=== PATIENT | male | born 1955 | race Caucasian/White ===

== ENCOUNTER 2018-01-01 05:04 | Emergency (ER) | payer MEDICARE, BC ==
[~2018-01-01] VITALS: Ht 182.9 cm; Wt 115.7 kg
[~2018-01-01 05:04] MED LIST: ALBU3IS INH; ALBU8HFA2 INH; AMLO10 PO; AMOCLA875 PO; AMOX500 PO; ASCO500 PO; ASPI81CH PO; ASPI81EC PO; Acetaminophen-1 EAC1 PO; BACL10 PO; BUME1 PO; BUME2 PO; Bactrim Ds Tab1 EACH PO; CARV3.125 PO; CARV6.25 PO; CLON.1 PO; CLON.2 PO; CYCL10; CYCL10 PO; Cleocin HCl150 MG PO; DIAZ10 PO; DOCU100 PO; DULO30 PO; DULO60; DULO60 PO; DULOXETINE HCL30 MG PO; DULOXETINE HCL60 MG PO; FENT50TP TOP; FENT75TP TOP; FERR325 PO; FURO40 PO; GABA600 PO; Gabapentin600 MG PO; HYDACE10B PO; HYDACE25S PR; HYDACE5; HYDACE5 PO; HYDMOR2 PO; HYDMOR4 PO; Hydrocodone-Ap1 EA23 PO; KETO10 PO; LIDO5TP; LORA1 PO; LOSARTAN POTASS25 MG PO; METH10; METH10 PO; METO50 PO; Metoprolol Tar100 MG PO; Monodox100 MG PO; NAPR500 PO; Naprosyn500 MG PO; Norco 5-325 Ta1 EACH PO; OMEP20ER PO; OXYACE5T PO; PENVK250 PO; POTCHL10ER PO; POTCHL20ER PO; PRED10 PO; PROM25 PO; Percocet 5-3251 EACH PO; Phenergan25 M1 PO; Prednisone20 MG PO; Prilosec Otc20 MG PO; RXCYCL10 PO; RXHYDMOR2 PO; RXOXYACE PO; Senna Laxative8.6 MG PO; Silvadene20 GM TOP; Simvastatin20 MG PO; TELM40; TIZA4; VENL37.5; Veetids 500500 MG PO; Ventolin Soln3 ML INH; WARF10 PO; [UNRECOGNIZED DRUG - REMARK]; [UNRECOGNIZED DRUG - REMARK]
[2018-01-01] MEDS ORDERED: Hydrocodone-Ap1 EA23 PO (05:20)
[2018-01-01] MEDS ORDERED: TORSE20 PO (05:21)
[2018-01-01] MEDS ORDERED: Cleocin HCl300 MG PO (05:22)
== END 2018-01-01 05:24 | disposition home or self-care (01) ==
LOC: ER 05:04
DX: K04.7 Periapical abscess without sinus (principal); K02.9 Dental caries, unspecified; I10 Essential (primary) hypertension; J44.9 Chronic obstructive pulmonary disease, unspecified; F17.210 Nicotine dependence, cigarettes, uncomplicated; Z88.8 Allergy status to other drugs, medicaments and biological substances; Z79.899 Other long term (current) drug therapy; Z79.01 Long term (current) use of anticoagulants; Z79.891 Long term (current) use of opiate analgesic; Z79.2 Long term (current) use of antibiotics; Z79.82 Long term (current) use of aspirin
CPT/HCPCS: 99282

== ENCOUNTER 2018-11-02 01:22 | Emergency (ER) | payer MEDICARE ==
[~2018-11-02] VITALS: Ht 182.9 cm; Wt 127.0 kg
[~2018-11-02 01:22] MED LIST changes: +Augmentin 500-1 EACH PO; +Cleocin HCl300 MG PO; +SULI150 PO; +TORSE20 PO
[2018-11-02] MEDS ORDERED: Augmentin 875-1 EACH PO (02:13)
== END 2018-11-02 02:33 | disposition home or self-care (01) ==
LOC: ER 01:22
DX: K04.7 Periapical abscess without sinus (principal); J44.9 Chronic obstructive pulmonary disease, unspecified; I10 Essential (primary) hypertension; Z95.2 Presence of prosthetic heart valve; Z88.8 Allergy status to other drugs, medicaments and biological substances; Z79.01 Long term (current) use of anticoagulants; Z79.899 Other long term (current) drug therapy; F17.210 Nicotine dependence, cigarettes, uncomplicated
CPT/HCPCS: 99282; A9270

== ENCOUNTER 2019-02-03 18:29 | Inpatient (IN) | payer MEDICARE, BC ==
[~2019-02-03] VITALS: Ht 182.9 cm; Wt 129.0 kg
[~2019-02-03 18:29] MED LIST changes: +Augmentin 875-1 EACH PO
[2019-02-03 19:36] LABS: BASOPHILS ABSOLUTE AUTO 0.05 K/mm3 (0.00-0.23); BASOPHILS PERCENT AUTO 1 % (0-2); EOSINOPHILS ABSOLUTE AUTO 0.32 K/mm3 (0.00-0.68); EOSINOPHILS PERCENT AUTO 3 % (0-6); Hematocrit 52.9 % (37.0-53.0); Hemoglobin 14.4 g/dL (13.5-17.5); IMMATURE GRAN ABSOLUTE AUTO 0.03 K/mm3 (0.00-0.10); IMMATURE GRAN PERCENT AUTO 0 % (0-1); LYMPHOCYTES ABSOLUTE AUTO 1.45 K/mm3 (0.84-5.20); LYMPHOCYTES PERCENT AUTO 15 % (21-46); MONOCYTES ABSOLUTE AUTO 1.07 K/mm3 (0.16-1.47); MONOCYTES PERCENT AUTO 11 % (4-13); Mean Corpuscular HGB 24.2 pg (26.0-34.0); Mean Corpuscular HGB Conc 27.2 g/dL (31.5-36.5); Mean Platelet Volume 9.9 fL (9.1-12.4); NEUTROPHILS ABSOLUTE AUTO 7.06 K/mm3 (1.96-9.15); NEUTROPHILS PERCENT AUTO 71 % (41-73); Platelet Count 289 K/mm3 (150-400); RDW Coefficient Variation 23.5 % (11.7-14.2); RDW Standard Deviation 72.2 fL (35.1-46.3); Red Blood Cell Count 5.96 M/mm3 (4.30-5.90); White Blood Cell Count 9.98 K/mm3 (4.00-11.30)
[2019-02-03 19:38] LABS: Mean Corpuscular Volume 89 fL (80-100)
[2019-02-03 19:50] LABS: International Normalized Ratio 2.49; Prothrombin Time Results 24.3 Sec (9.7-11.5)
[2019-02-03 19:59] LABS: Alanine Aminotransfer (ALT/SGP 21 U/L (12-78); Albumin, Blood 3.2 g/dL (3.4-5.0); Albumin/Globulin Ratio 0.7 (0.8-1.8); Alk Phos 50 U/L (50-136); Anion Gap -1 mmol/L (6-16); Aspartate Aminotrans (AST/SGOT 31 U/L (12-37); Bilirubin, Total 0.5 mg/dL (0.1-1.0); Blood Urea Nitrogen 31 mg/dL (8-24); Bun/Creatinine Ratio 23.3 (12.0-20.0); CO2, Blood 41 mmol/L (21-32); Calcium, Blood 8.8 mg/dL (8.5-10.1); Chloride, Blood 92 mmol/L (98-108); Creatinine, Blood 1.33 mg/dL (0.60-1.20); Globulin, Blood 4.3 g/dL (2.2-4.0); Glomerular Filtration Rate 58 (60-); Glucose, Blood 173 mg/dL (70-99); Potassium, Blood 4.9 mmol/L (3.5-5.5); Sodium, Blood 132 mmol/L (136-145); Total Protein, Blood 7.5 g/dL (6.4-8.2); Troponin I <0.015 ng/mL (0.000-0.040)
[2019-02-03] MEDS ORDERED: ALBU3IS INH (20:47)
[2019-02-03] MEDS ORDERED: Prednisone50 MG PO (20:47)
[2019-02-03] MEDS ORDERED: ALBU90OI INH (20:47)
[2019-02-03] MEDS ORDERED: CLON.2 PO (21:42)
[2019-02-03] MEDS ORDERED: Catapres0.2 MG PO (21:43)
[2019-02-03] MEDS ORDERED: Aspir 8181 MG PO (21:44)
[2019-02-03 21:48] LABS: PCO2 Arterial 77.8 mmHg (35-45); PO2 Arterial 52.4 mmHg (80-100); pH Blood Arterial 7.35 (7.35-7.45)
[2019-02-03] MEDS ORDERED: WARF5 PO (21:54)
[2019-02-03 21:55] LABS: Uric Acid, Blood 8.2 mg/dL (3.5-7.2)
[2019-02-04] MEDS ORDERED: MAGNESIUM OXID500 MG PO (00:50)
[2019-02-04] MEDS ORDERED: B Complex-Foli1 EACH PO (00:52)
--- NOTE | 2019-02-04 02:48 | NUR ---
PATIENT UNABLE TO VOID, BLADDER SCAN SHOWING OVER 1000 CC OF URINE IN BLADDER.
--- NOTE | 2019-02-04 03:21 | NUR ---
LOW 16FR CODE PLACED WITH NO URINE AT THIS TIME.
[2019-02-04 03:24] LABS: BASOPHILS ABSOLUTE AUTO 0.02 K/mm3 (0.00-0.23); BASOPHILS PERCENT AUTO 0 % (0-2); EOSINOPHILS ABSOLUTE AUTO 0.04 K/mm3 (0.00-0.68); EOSINOPHILS PERCENT AUTO 0 % (0-6); Hematocrit 53.3 % (37.0-53.0); Hemoglobin 14.5 g/dL (13.5-17.5); IMMATURE GRAN ABSOLUTE AUTO 0.03 K/mm3 (0.00-0.10); IMMATURE GRAN PERCENT AUTO 0 % (0-1); LYMPHOCYTES PERCENT AUTO 9 % (21-46); MONOCYTES ABSOLUTE AUTO 0.14 K/mm3 (0.16-1.47); MONOCYTES PERCENT AUTO 2 % (4-13); Mean Corpuscular HGB 23.7 pg (26.0-34.0); Mean Corpuscular HGB Conc 27.2 g/dL (31.5-36.5); Mean Corpuscular Volume 87 fL (80-100); Mean Platelet Volume 10.1 fL (9.1-12.4); NEUTROPHILS ABSOLUTE AUTO 8.37 K/mm3 (1.96-9.15); NEUTROPHILS PERCENT AUTO 89 % (41-73); Platelet Count 253 K/mm3 (150-400); RDW Coefficient Variation 22.9 % (11.7-14.2); RDW Standard Deviation 69.8 fL (35.1-46.3); Red Blood Cell Count 6.13 M/mm3 (4.30-5.90)
[2019-02-04 03:37] LABS: International Normalized Ratio 2.4; Prothrombin Time Results 23.5 Sec (9.7-11.5)
--- NOTE | 2019-02-04 03:40 | NUR ---
PATIENT RELAXING AFTER ATIVAN GIVEN LOW CATH DRAINING YELLOW URINE.
[2019-02-04 03:43] LABS: Alanine Aminotransfer (ALT/SGP 20 U/L (12-78); Albumin, Blood 3.1 g/dL (3.4-5.0); Albumin/Globulin Ratio 0.7 (0.8-1.8); Alk Phos 47 U/L (50-136); Anion Gap 1 mmol/L (6-16); Aspartate Aminotrans (AST/SGOT 27 U/L (12-37); Bilirubin, Total 0.5 mg/dL (0.1-1.0); Blood Urea Nitrogen 26 mg/dL (8-24); Bun/Creatinine Ratio 26.6 (12.0-20.0); CO2, Blood 39 mmol/L (21-32); Calcium, Blood 8.5 mg/dL (8.5-10.1); Chloride, Blood 95 mmol/L (98-108); Creatinine, Blood 0.98 mg/dL (0.60-1.20); Globulin, Blood 4.6 g/dL (2.2-4.0); Glomerular Filtration Rate >60 (60-); Glucose, Blood 187 mg/dL (70-99); Potassium, Blood 5.2 mmol/L (3.5-5.5); Sodium, Blood 135 mmol/L (136-145); Total Protein, Blood 7.7 g/dL (6.4-8.2)
[2019-02-04 03:49] LABS: Source, Urine Clean Catch
[2019-02-04 04:05] LABS: Bilirubin, Urine Neg (Neg); Blood, Urine Neg (Neg); Glucose Qualitative, Urine Neg (Neg); Ketones, Urine Neg (Neg); Leukocyte Esterase, Urine Neg (Neg); Nitrite, Urine Neg (Neg); Protein, Urine Neg (Neg); Specific Gravity, Urine 1.015 (1.003-1.022); Urobilinogen, Urine NORM (Normal)
[2019-02-04 04:19] LABS: Appearance, Urine Clear (Clear); Color, Urine Yellow (P-Yellow); U Amphetamine Screen DETECTED; U Barbituate Screen Not Detected; U Benzodiazapine Screen Not Detected; U Buprenorphine Screen DETECTED; U Cannabinoids Screen Not Detected; U Cocaine Screen Not Detected; U Methadone Screen Not Detected; U Methamphetamine Screen Not Detected; U Opiates Screen Not Detected; U Oxycodone Screen Not Detected; U Phencyclidine Screen Not Detected; U Propoxyphene Screen Not Detected
--- NOTE | 2019-02-04 06:29 | NUR ---
SUMMARY PATIENT AWAKENS EASILY TO VERBAL STIMULI. SLEEPING WITH BIPAP IN PLACE SET AT 12/7 FIO2 40% PATIENT HAD APROX 1/2HR BREAK WITH 4L/NC IN PLACE. OXYGEN SAT DROPPING TO 87% WHEN PATIENT FALLING BACK TO SLEEP, BIPAP REPLACED. LOW CATH PLACED DUE TO URINE RETENTION, DRAINING CLEAR YELLOW URINE.
--- NOTE | 2019-02-04 07:34 | NUR ---
ASSUMED CARE REPORT FROM SITA Fishman RN. PATIENT SLEEPING WITH BIPAP MASK IN PLACE. BIPAP / 40% ON 4L NC FOR BREAKS. LOW IN PLACE FOR RETENTION AND ON LASIX
--- NOTE | 2019-02-04 08:39 | NUR ---
FAMILY IN UPDATE GIVEN. PATIENT REMAINS ASLEEP ON BIPAP. WILL AWAKWN FOR MEDS
--- NOTE | 2019-02-04 09:50 | NUR ---
CONTRACTS PAR[place]GAL IN WITH PT/FAMILY. ADVISED PATIENT NEEDS PCP.
[2019-02-04 10:24] LABS: PO2 Arterial 63.6 mmHg (80-100); pH Blood Arterial 7.35 (7.35-7.45)
[2019-02-04 10:25] LABS: PCO2 Arterial 77.8 mmHg (35-45)
--- NOTE | 2019-02-04 10:25 | NUR ---
MD VISIT DR. RUIZ IN. ORDER FOR REPEAT ABG.
--- NOTE | 2019-02-04 10:29 | NUR ---
PATIENT FALLS ASLEEP FREQUENTLY. REPEAT ABG UNCHANGED. PATIENT REPORTS HE HAS BEEN DIAGNOSED WITH SLEEP APNEA IN THE PAST, BUT DOES NOT HAVE CPAP. RT RADHIKA WILL PLACE HIM BACK ON THE BIPAP.
--- NOTE | 2019-02-04 11:21 | NUR ---
Echocardiogram completed.
[2019-02-04 11:24] LABS: International Normalized Ratio 2.08; Prothrombin Time Results 20.6 Sec (9.7-11.5)
--- NOTE | 2019-02-04 13:30 | NUR ---
PT REPORTED HE WAS SUPPOSED TO HAVE HIS IRON INFUSION AT DR. DE PAZ'S OFFICE. VO FROM DR. RUIZ TO FIND OUT DOSAGE AND ORDER INFUSION. REC'D THE INFORMATION FROM DR. TAMAYO AND ORDER IMPLEMENTED.
--- NOTE | 2019-02-04 18:26 | NUR ---
PATIENT SLEPT WITH BIPAP MASK ON FROM AFTER LUNCH TO DINNER AT 1800. IRON INFUSION GIVEN. PATIENT HAS NOT HAD A BOWEL MOVEMENT FOR A WEEK. COLACE ORDERED. CONTINUES IN THE RECLINER. UPDATED BY PHONE.
--- NOTE | 2019-02-04 19:26 | NUR ---
REPORT GIVEN TO SITA Fishman RN
--- NOTE | 2019-02-04 20:38 | NUR ---
PATIENT VISITING WITH HIS . WITH 4L/NC IN PLACE. PATIENT VERBALIZED THAT HE FEELS LIKE HE IS BREATHING BETTER. AFTER FINISHING COFFEE PATIENT VERBALIZED THAT HE IS READY FOR THE BIPAP AND SLEEP. LUNG SOUNDS WITH SCATTERED WHEEZES T/O. TREMOR IN SHOULDERS APPEARS LESS. PATIENT ASSISTING WITH REPOSITIONING FOR COMFORT.
[2019-02-04 22:01] LABS: Adenovirus Not Detected (NOT DETECT); Bordetella pertussis Not Detected (NOT DETECT); Chlamydophila pneumoniae Not Detected (NOT DETECT); Coronavirus 229E Not Detected (NOT DETECT); Coronavirus HKU1 Not Detected (NOT DETECT); Coronavirus NL63 Not Detected (NOT DETECT); Coronavirus OC43 Not Detected (NOT DETECT); Human Metapneumovirus Not Detected (NOT DETECT); Human Rhinovirus/Enterovirus Not Detected (NOT DETECT); Influenza A Not Detected (NOT DETECT); Influenza A/2009-H1 Not Detected (NOT DETECT); Influenza A/H1 Not Detected (NOT DETECT); Influenza A/H3 Not Detected (NOT DETECT); Influenza B Not Detected (NOT DETECT); Mycoplasma pneumoniae Not Detected (NOT DETECT); Parainfluenza Virus 1 Not Detected (NOT DETECT); Parainfluenza Virus 2 Not Detected (NOT DETECT); Parainfluenza Virus 3 Not Detected (NOT DETECT); Parainfluenza Virus 4 Not Detected (NOT DETECT); Respiratory Syncytial Virus Not Detected (NOT DETECT)
--- NOTE | 2019-02-04 23:28 | NUR ---
PATIENT VERBALIZED FEELING RESTLESS AND FEELING LIKE HIS LEGS WERE JUMPING. PAS STOCKINGS REMOVED AND ATIVAN IV GIVEN TO HELP PATIENT REST. BIPAP REMAINS IN PLACE.
[2019-02-05 04:40] LABS: International Normalized Ratio 2.41; Prothrombin Time Results 23.6 Sec (9.7-11.5)
--- NOTE | 2019-02-05 05:55 | NUR ---
SUMMARY PATIENT SLEEPING WITH BIPAP IN PLACE FOR MOST OF THE NIGHT. ON 4L/NC WHEN OFF BIPAP MEDICATED WITH ATIVAN TO HELP PATIENT SLEEP. PATIENT REPOSITIONING SELF IN BED FOR COMFORT, CONTINUES TO BE SOB WITH ACTIVITY.
--- NOTE | 2019-02-05 07:15 | NUR ---
ASSUMED CARE REPORT FROM SITA Fishman RN. PATIENT SLEEPING WITH BIPAP MASK ON. LABS AND ABG ORDERED BY DR. RUIZ
[2019-02-05 07:27] LABS: PCO2 Arterial 68.9 mmHg (35-45); PO2 Arterial 93.5 mmHg (80-100); pH Blood Arterial 7.41 (7.35-7.45)
[2019-02-05 07:31] LABS: Hematocrit 49.9 % (37.0-53.0); Hemoglobin 13.3 g/dL (13.5-17.5); Mean Corpuscular HGB 23.5 pg (26.0-34.0); Mean Corpuscular HGB Conc 26.7 g/dL (31.5-36.5); Mean Corpuscular Volume 88 fL (80-100); Mean Platelet Volume 10.7 fL (9.1-12.4); Platelet Count 241 K/mm3 (150-400); RDW Coefficient Variation 22.8 % (11.7-14.2); RDW Standard Deviation 70.6 fL (35.1-46.3); Red Blood Cell Count 5.67 M/mm3 (4.30-5.90); White Blood Cell Count 8.41 K/mm3 (4.00-11.30)
[2019-02-05 07:36] LABS: Alanine Aminotransfer (ALT/SGP 21 U/L (12-78); Albumin, Blood 2.7 g/dL (3.4-5.0); Albumin/Globulin Ratio 0.7 (0.8-1.8); Alk Phos 40 U/L (50-136); Anion Gap 1 mmol/L (6-16); Aspartate Aminotrans (AST/SGOT 17 U/L (12-37); Bilirubin, Total 0.4 mg/dL (0.1-1.0); Blood Urea Nitrogen 27 mg/dL (8-24); Bun/Creatinine Ratio 28.4 (12.0-20.0); CO2, Blood 41 mmol/L (21-32); Calcium, Blood 8.3 mg/dL (8.5-10.1); Chloride, Blood 95 mmol/L (98-108); Creatinine, Blood 0.95 mg/dL (0.60-1.20); Globulin, Blood 3.9 g/dL (2.2-4.0); Glomerular Filtration Rate >60 (60-); Glucose, Blood 195 mg/dL (70-99); Magnesium, Blood 2.5 mg/dL (1.6-2.4); Potassium, Blood 4.6 mmol/L (3.5-5.5); Sodium, Blood 137 mmol/L (136-145); Total Protein, Blood 6.6 g/dL (6.4-8.2)
[2019-02-05 10:47] LABS: International Normalized Ratio 2.41; Prothrombin Time Results 23.6 Sec (9.7-11.5)
--- NOTE | 2019-02-05 12:18 | NUR ---
MD VISIT DR. CONTRERAS IN PT WILL BE GOING BACK TO OR.
--- NOTE | 2019-02-05 12:24 | NUR ---
IN VERBAL CONSENT TO TAKE HER BACK TO SURGERY
--- NOTE | 2019-02-05 12:26 | NUR ---
MED VISIT DR. RUIZ IN. ORDERS RECEIVED AND IMPLEMENTED
--- NOTE | 2019-02-05 19:20 | NUR ---
REPORT GIVEN TO SITA Fishman RN
--- NOTE | 2019-02-05 21:14 | NUR ---
PATIENT AWAKE VISITING WITH FAMILY. PATIENT VERBALIZING FRUSTRATION WITH NOT BEING WELL ENOUGH TO GO HOME YET. PATIENT GIVEN REMINDER THAT EACH DAY HE HAS GOTTEN BETTER AND THAT HE IS NOW PCU STATUS. PATIENT ON 4L/NC, WITH BIPAP 12/7 FIO2 40% AVAILABLE FOR SLEEP. SOB WITH ACTIVITY CONTINUES BUT RECOVERY APPEARS QUICKER.
--- NOTE | 2019-02-05 23:02 | NUR ---
PATIENT UP TO TOILET TO HAVE BM, PASSING MEDIUM HARD FORMED BROWN BM. PATIENT MICHAEL AMBULATING IN ROOM AND PASSING BM WELL. PATIENT REQUESTING ATIVAN TO HELP HIM SLEEP AND TO HELP HIM MICHAEL WEARING THE BIPAP. ATIVAN IV GIVEN.
--- NOTE | 2019-02-06 00:45 | NUR ---
TRANSFER TO PCU 12 REPORT CALLED TO LAURA CHILDERS, AND PATIENT TRANSFERRED VIA WHEEL CHAIR ON 4L/NC. PATIENT MICHAEL TRANSFER WELL.
--- NOTE | 2019-02-06 01:00 | NUR ---
ASSUMED CARE PT CARE ASSUMED AT APPROXIMATELY 0045. PT TO ROOM PCU 12 VIA WHEELCHAIR. PT IS AOX4. AMBULATES TO HOSPITAL BED WITHOUT DIFFICULTY. O2 SATS >90% ON 4L VIA NASAL CANNULA. PT PUTS BIPAP ON IN ATTEMPTS TO SLEEP. BIPAP SETTINGS / 40% FIO2. PT TOLERATING WELL AT THIS TIME. PT ORIENTED TO ROOM AND CALL LIGHT SYSTEM AND ATTEMPTING TO REST AT THIS TIME. BED IN LOWEST POSITION, CALL LIGHT IN REACH.
[2019-02-06 03:57] LABS: International Normalized Ratio 2.75; Prothrombin Time Results 26.6 Sec (9.7-11.5)
--- NOTE | 2019-02-06 06:19 | NUR ---
SHIFT SUMMARY PT HAS REMAINED UNCHANGED SINCE ARRIVAL TO UNIT. VSS. VERY PLEASANT AND COOPERATIVE WITH CARE. PT HAS RESTED THROUGHOUT REMAINDER OF NIGHT WITH BIPAP IN PLACE WITH SETTINGS OF 12/7 40% FIO2. O2 SATS HAVE REMAINED >90% ON BIPAP OR ON 4L VIA NASAL CANNULA. PT OCCASIONALLY SHIFTING SELF IN BED INDEPENDENTLY. NO OTHER CHANGES FROM SHIFT ASSESSMENT NOTED. WILL CONTINUE TO MONITOR AND REPORT TO ONCOMING SHIFT RN. BED IN LOW POSITION, CALL LIGHT IN REACH.
--- NOTE | 2019-02-06 09:46 | NUR ---
NURSING PCU DAYSHIFT: Assumed care of pt at approx 0700. A/O, pleasant, cooperative w/care. Denies any pain/discomfort at rest other than tenderness w/palp of LE's. BLE's red w/scattered scabs, skin otherwise intact w/no breakdown noted. Able to reposition independently though general weakness is noted. Tele in place, NSR, no c/o CP/pressure, SBP 140, trace BLE edema. L/S w/bibasilar crackles, dyspnea w/exertion, O2 sat low to mid 90's on 5L NC, no noted cough, uses bipap during periods of rest, continuous bedside O2 monitoring. Abd soft, mildly distended per pt, BT+, c/o constipation, FC w/stat lock in place for strict I/O, draining well. PIV x1, s/l. Pt denies any current needs or questions regarding plan of care. Seen by PMD, new d/o received. Call light remains in reach and pt is able to use w/o difficulty. Cont to monitor for any changes.
--- NOTE | 2019-02-06 18:17 | NUR ---
NURSING PCU DAYSHIFT SUMMARY: Blood pressure has had noted improvement t/o shift w/meds as ordered. Respiratory status unchanged, O2 sat remains 90's on 5L NC. Pt able to ambulate to restroom w/staff assist, tolerated well w/minimal dyspnea noted. Pt denies any current needs/questions, call light in reach, cont to monitor until rpt is given to NOC RN.
[2019-02-07 04:02] LABS: International Normalized Ratio 2.2; Prothrombin Time Results 21.7 Sec (9.7-11.5)
--- NOTE | 2019-02-07 05:36 | NUR ---
SHIFT SUMMARY PT A&O X4. SPO2 > 90% ON 5L NC. PT WEARING BIPAP /, FIO2 40% FROM 2300 TO 0200 THIS SHIFT. PT THEN REQUESTING "A BREAK" FROM BIPAP. MONITOR SHOWS NSR, HR 65-85. LOW CATH PATENT AND DRAINING DARK YELLOW URINE. BLE RED W/ TRACE EDEMA. WILL CONTINUE TO MONITOR AND PROVIDE CARE UNTIL REPORT OFF TO DAY SHIFT RN.
[2019-02-07 07:39] LABS: Anion Gap 0 mmol/L (6-16); Blood Urea Nitrogen 22 mg/dL (8-24); Bun/Creatinine Ratio 27.2 (12.0-20.0); CO2, Blood 40 mmol/L (21-32); Calcium, Blood 8.5 mg/dL (8.5-10.1); Chloride, Blood 97 mmol/L (98-108); Creatinine, Blood 0.81 mg/dL (0.60-1.20); Glomerular Filtration Rate >60 (60-); Glucose, Blood 147 mg/dL (70-99); Potassium, Blood 4.3 mmol/L (3.5-5.5); Sodium, Blood 137 mmol/L (136-145)
--- NOTE | 2019-02-07 09:17 | NUR ---
ASSUMED CARE OF PATIENT 0700, NOC SHIFT RN REPORTS C/O HEADACHE AND GAVE TYLENOL. F/U ASSESSENT AT 0730 WITH C/O CONTINUED "PRESSURE" HEADACHE, FEELS IT'S FROM NASAL CONGESTION/DRY NOSE FROM THE OXYGEN. TYLENOL ISN'T DUE UNTIL NOON, RECOMMENDED POSITION CHANGE AND ASSISTED PATIENT TO A CHAIR, TOLERATING WELL. LUNG SOUNDS WITH INS/EXP WHEEZE T/O UPPER LOBES AND FINE CRACKLES IN BASE. SOBOE NOTED, BUT RECOVERS QUICKLY. NO PITTING EDEMA NOTED IN LEGS, PATIENT STILL FEELS ABD IS MILDLY DISTENDED. CONTINUE WITH COLACE FOR C/O CONSTIPATION. ALSO, C/O SORE THROAT, NO S/S OF THRUSH NOTED BUT WILL MONITOR.
--- NOTE | 2019-02-07 14:43 | NUR ---
1300-PATIENT C/O SOME AGITATION SECONDARY TO "HAVEN'T HAD ANYTHING TO SMOKE SINCE I'VE BEEN HERE...JUST GETTING IRRITABLE I GUESS". REQUESTING A NICOTINE PATCH...NORMALLY SMOKES 1 PACK/DAY. OBTAINED V.O. FROM DR SIBLEY FOR 14MCG/DAY NICOTINE PATCH.
--- NOTE | 2019-02-07 15:47 | NUR ---
1500-patient c/o headache again after waking up from nap, rates /. Tylenol given. Also, applied new order Nicoderm patch. 1545-Reassessment re: Headache, reports "barely there" 05/31. Oxygen sats reading 90-91% on 5L while sleeping and 93-94% while awake. Casey ROB advises to leave on 5L as patient drops below 90s with activity.
--- NOTE | 2019-02-07 18:10 | NUR ---
Day Shift Summary: Patient has been up in chair for meals t/o the day, tolerating well with 1 person assist to watch tubes/lines. Treated for Headache x 2 as previously documented, resolved with Tylenol and position change. Slight SOBOE noted, but recovers quickly. Has new Nicoderm 14mcg patch on, which he reports has helped with the irritability. 1800-c/o bilateral hands cramping. RN visualized this as well with fingers locking up. Potassium level on AM labs was wnl. Patient then reports this has happened almost daily for the last 2 days, but not as severe. Wrapped hands in warm towel for relief of cramping pain. 1815-reports cramping easing in hands, but notices some twitching in bilateral shoulders now. Note patient was asleep when RN walked in to reassess. No other changes noted t/o the day.
--- NOTE | 2019-02-08 04:36 | NUR ---
SHIFT SUMMARY PT A&O X4. PT CONTINUES TO WEAR 5L NC, SPO2 AVERAGING 90-92%. PT WEARING BIPAP 04/27, FIO2 40% FROM 2300 TO 0300 THIS SHIFT. MONITOR SHOWS NSR, HR 60-90. VSS. PT C/O HEADACHE, MEDICATED PER EMAR. LOW CATH PATENT AND DRAINING. PT REQUIRING ENCOURAGEMENT TO REPOSITION AND MOVE. WILL CONTINUE TO MONITOR AND PROVIDE CARE UNTIL REPORT OFF TO DAY SHIFT RN.
[2019-02-08 04:37] LABS: Anion Gap 1 mmol/L (6-16); Blood Urea Nitrogen 19 mg/dL (8-24); Bun/Creatinine Ratio 25.1 (12.0-20.0); CO2, Blood 36 mmol/L (21-32); Calcium, Blood 8.6 mg/dL (8.5-10.1); Chloride, Blood 99 mmol/L (98-108); Creatinine, Blood 0.76 mg/dL (0.60-1.20); Glomerular Filtration Rate >60 (60-); Glucose, Blood 137 mg/dL (70-99); International Normalized Ratio 2.04; Potassium, Blood 4.6 mmol/L (3.5-5.5); Prothrombin Time Results 20.3 Sec (9.7-11.5); Sodium, Blood 136 mmol/L (136-145)
--- NOTE | 2019-02-08 09:36 | NUR ---
AM NOTE. ASSUMED CARE OF PT APROX 0700. PT IS A&Ox4 AND SBA W/FWW IN THE ROOM. PT WAS ADMITTED FOR RESP FAILURE. PT IS CURRENTLY ON 5L NC WITH O2 SATS AT 90%. PT STATES HIS IS ON RA AT HOME. PT IS ON A 1,000 ML FLUID RESTRICTION PER PROVIDER. L/S CLEAR T/O DIM IN THE BASES. PT HAS LOW FOR RETENTION, IT IS PATENT AND DRAINING YELLOW URINE TO GRAVITY. CALL LIGHT IN REACH, BED IS LOCKED AND LOW WILL CONTINUE TO MONITOR.
--- NOTE | 2019-02-08 17:00 | NUR ---
SHIFT SUMMARY- PT TRANSFERED TO MEDICAL FLOOR FROM PCU. PT ALERT, ORIENTED OPA WITH AMBULATION. CURRENTLY SITTING UP IN THE CHAIR WITH THE CALL LIGHT IN REACH, MEDICATED WITH TYLENOL ONCE AFTER ARRIVAL FOR 7/10 HEADACHE. PT RECIEVED IRON INFUSION AFTER ARRIVAL. NO S&S OF DISTRESS NOTED AT THIS TIME. PT IS ON A 1000ML FLUID RESTRICTION, THIS IS NEW AND HE IS HAVING DIFFICULTY WITH IT AT THIS TIME BUT TRYING TO ADHERE.
--- NOTE | 2019-02-09 03:42 | NUR ---
SHIFT SUMMARY PATIENT HAD NO ACUTE CHANGES OBSERVED THIS SHIFT. AXOX 3 AND SITTING IN CHAIR WATCHING TV AT SHIFT CHANGE. REPORTED KRAMER X ONE AND TYLENOL GIVEN PER EMAR. FLUID RESTRICTION 1,000 mL. PIV REMAINS INTACT. ON 5 L O2 NC AND RA BASELINE STATING 93 % ON CONTINUOUS PULSE OXIMETRY. USES CPAP AT NIGHT. LOW FOR RETENTION PATENT AND DRAINING. COOPERATIVE WITH CARE. CALL LIGHT IN REACH. BED IN LOWEST POSITION. WILL CONTINUE TO MONITOR UNTIL DAY SHIFT NURSE ASSUMES CARE.
[2019-02-09 05:06] LABS: Anion Gap 4 mmol/L (6-16); Blood Urea Nitrogen 23 mg/dL (8-24); Bun/Creatinine Ratio 33.4 (12.0-20.0); CO2, Blood 34 mmol/L (21-32); Calcium, Blood 8.6 mg/dL (8.5-10.1); Chloride, Blood 101 mmol/L (98-108); Creatinine, Blood 0.69 mg/dL (0.60-1.20); Glomerular Filtration Rate >60 (60-); Glucose, Blood 131 mg/dL (70-99); International Normalized Ratio 1.76; Potassium, Blood 4.2 mmol/L (3.5-5.5); Prothrombin Time Results 17.7 Sec (9.7-11.5); Sodium, Blood 139 mmol/L (136-145)
--- NOTE | 2019-02-09 07:52 | NUR ---
ASSUMED CARE OF PT- BEDSIDE REPORT COMPLETED WITH NIGHT RN BECKY. PER REPORT PT HAD NOP ACUTE CHANGES T/O THE NIGHT. PT MEDICATED FOR KRAMER ONCE WITH TYLENOL. PT ALERT AND ORIENTED, ONE PA WITH TRANSFERS FOR SAFETY. PT ALERT, SPEAKING WITH STAFF DURING BEDSIDE REPORT,, REQUESTED TO HAVE ASSISTANCE TO THE RECLINER MARANDA IN PLACE PATENT AND DRAINING. PT ON 5L O2 VIA NC C-PAP AT NIGHT.
--- NOTE | 2019-02-09 09:10 | NUR ---
SPOKE TO DR SIBLEY- PT C/O FEELING CHEST PAIN AND HAVING DIFFICULTY CATCHING HIS BREATH, EYES WERE TEARING UP AND PT APPEARED TO BE FRIGHTENED. CALLED RESPIRATORY, THOUGH SATS MAINTAINED IN THE 90'S, CALLED CAN CUTTER TO ASSIST FULL VITALS TAKEN. IT PRESENTED MORE LIKE AN ANXIETY ATTACK. SPOKE WITH DR SIBLEY, SYMPTOMS RESOLVED ON THEIR OWN AT THIS TIME HOWEVER PT MAY NEED A PRN FOR FUTURE EPISODES.
--- NOTE | 2019-02-09 11:30 | NUR ---
PT STATED HE WAS STARTING TO FEEL THE ANXIETY AGAIN AND ASKED IF HE COULD HAVE SOMETHING TO HELP HIM RELAX. MEDICATED WITH PRN XANAX.
--- NOTE | 2019-02-09 15:25 | NUR ---
called dr hagan- PT C/O SEVERE NICOTIENE CRAVINGS AND WAS BEGINNING TO GET AGGITATTED. PT NICOTIENE PATCH FELL OFF DURING HIS SHOWER HOURS EARLIER. RECIEVED AN ORDER FOR A OT DOSE TO REPLACE THE LOST NICOTIENE PATCH.
--- NOTE | 2019-02-09 18:12 | NUR ---
SHIFT SUMMARY- PT ALERT, ORIENTED, 1PA WITH TRANSFERS D/T LINES AND TUBES. PT HAS A NEW ORDER FOR XANAX, WHICH WORKED VERY WELL TO MAKE THE PT FEEL BETTER. PT APPEARS TO BE FEELING BETTER THIS EVENING. NO C/O PAIN T/O THE DAY, LASIX INCREASED TO 3 TIMES DAILY. PT HAS MADE SUGGESTIONS THAT HE MAY BE LEAVING TOMORROW, NURSING STAFF CONVEYED THAT HE CAN LEAVE AGAINST MEDICAL ADVICE HOWEVER IF HE LEAVES PRIOR TO BEING MEDICALLY STABLE HE COULD VERY WELL RETURN IN A FEW DAYS, AND COULD BE FAR SICKER. PT IS AWARE AND IS CONCERNED ABOUT THE FLUID RESTRICTION. PT HAS ALREADY USED 830ML OF HIS 1000ML FLUID RESTRICTION. PT IS AWARE AND IS IRRITATED WITH THE RESTRICTION. AGAIN STAFF TOLD HIM HE CAN CHOOSE NOT TO STICK TO THE FLUID RESTRICTION BUT IT WILL LIKELY SLOW PROGRESS ON THE PROCESS OF DIURESSING THE PT.
--- NOTE | 2019-02-10 04:03 | NUR ---
SHIFT SUMMARY PATIENT HAD NO ACUTE CHANGES OBSERVED. AXOX 3 AND ONE ASSIST. PIV REMAIN INTACT. VSS/AFEBRILE. REPORTED KRAMER X ONE AND TYLENOL GIVEN PER EMAR. REPORTED ANXIETY AND XANAX GIVEN PER EMAR. LOW PATENT AND DRAINING. ON 5L O2 NC WITH CONTINUOUS PULSE OXIMETRY. USES CPAP AT NIGHT. FAMILY PRESENT FIRST PART OF SHIFT. FLUID RESTRICTIONS 1,OOO mL. CALL LIGHT IN REACH. BED IN LOWEST POSITION. WILL CONTINUE TO MONITOR UNTIL DAY SHIFT NURSE ASSUMES CARE.
[2019-02-10 04:57] LABS: International Normalized Ratio 1.91; Prothrombin Time Results 19.1 Sec (9.7-11.5)
[2019-02-10 04:59] LABS: Anion Gap 2 mmol/L (6-16); Blood Urea Nitrogen 25 mg/dL (8-24); CO2, Blood 36 mmol/L (21-32); Calcium, Blood 8.7 mg/dL (8.5-10.1); Chloride, Blood 102 mmol/L (98-108); Creatinine, Blood 0.71 mg/dL (0.60-1.20); Glomerular Filtration Rate >60 (60-); Glucose, Blood 136 mg/dL (70-99); Potassium, Blood 3.9 mmol/L (3.5-5.5); Sodium, Blood 140 mmol/L (136-145)
--- NOTE | 2019-02-10 19:56 | NUR ---
SHIFT SUMMARY- PT AMBULATED WITH FWW IN THE FAN WITH RN TO THE MIDDLE OF THE LOBBY BACK TO THE ROOM THEN TO THE END OF THE FAN BY ROOM 13, UNCERTAIN OF THE DISTANCVE MEASUREMENT. PT ALERT AND ORIENTED, C/O PAIN IN THE NECK, HEATING PAD PROVIDED WELL PRN TYLENOL. PASSED ON IN BEDSIDE REPORT TO NIGHT ALVARADO PENA.
--- NOTE | 2019-02-11 03:43 | NUR ---
SHIFT SUMMARY PATIENT HAD NO ACUTE CHANGES OBSERVED. AXOX 3 AND ONE ASSIST TO BR. RT IN FOR BREATHING TX AND TO SETUP CPAP. ON 5L O2 NC. TAKES MEDICATION WHOLE WITH WATER. FLUID RESTRICTION: 1,000 mL. LOW PATENT AND DRAINING. ON CONTINUOUS PULSE OXIMETRY. DENIES PAIN, SOB, AND N/V. VSS/AFEBRILE. XANAX GIVEN FOR ANXIETY PER EMAR. CALL LIGHT IN REACH. BED IN LOWEST POSITION. WILL CONTINUE TO MONITOR UNTIL DAY SHIFT NURSE ASSUMES CARE.
[2019-02-11 04:50] LABS: International Normalized Ratio 1.92; Prothrombin Time Results 19.2 Sec (9.7-11.5)
[2019-02-11 04:59] LABS: Anion Gap 2 mmol/L (6-16); Blood Urea Nitrogen 23 mg/dL (8-24); CO2, Blood 36 mmol/L (21-32); Calcium, Blood 8.7 mg/dL (8.5-10.1); Chloride, Blood 100 mmol/L (98-108); Creatinine, Blood 0.74 mg/dL (0.60-1.20); Glomerular Filtration Rate >60 (60-); Glucose, Blood 156 mg/dL (70-99); Potassium, Blood 4.1 mmol/L (3.5-5.5); Sodium, Blood 138 mmol/L (136-145)
--- NOTE | 2019-02-11 14:12 | NUR ---
Initial Visit: Palliative Care Consult for AD/POLST and Advanced Care Planning. Pt is A&O and reports 5/10 pain in the neck and headache. He reports taking Tylenol and Ibuprofin at home to help manage pain. Pt reports anxiety due to being in the hospital and current health. Pt denies dyspnea at rest but becomes SOB with exertion. Pt reports oxygen is helping with SOB. Engaged in therapeutic discussion regarding Advanced Care Planning. Pt lives at home with his and daughter both of whom have chronic medical conditions. Pt reports at baseline he is independent of his ADLs and does not practice any gnosticist. Educated Pt on disease process including trajectory of disease. Educated on the importance of routine conversations with school custodian and PCP regarding disease process in order to plan accordingly. Educated on advanced directives inlcuding the importance of having a health care telemarketing representative. Educated on each section to complete, life sustaining measures and risk factors. Pt reports he will complete advanced directive at home after discussing his wishes with family. No other concerns reported at this time. Palliative Care will remain available.
--- NOTE | 2019-02-11 19:14 | NUR ---
SHIFT SUMAMRY: NO ACUTE CHANGES TO REPORT THIS SHIFT. PT A&O; OCC IRRITABLE; COOPERATIVE WITH CARE. PT ON 3L O2; DOWN FROM 5L EARLIER THIS SHIFT; PT ON ROOM AIR AT HOME; HX CHF & COPD. LOW IN PLACE FOR RETENTION. DIURETICS CONTINUING. REPORT GIVEN TO ONCOMING RN.
[2019-02-12 04:56] LABS: International Normalized Ratio 2.11; Prothrombin Time Results 20.9 Sec (9.7-11.5)
[2019-02-12 05:00] LABS: Anion Gap 3 mmol/L (6-16); Blood Urea Nitrogen 23 mg/dL (8-24); Bun/Creatinine Ratio 29.4 (12.0-20.0); CO2, Blood 35 mmol/L (21-32); Calcium, Blood 8.5 mg/dL (8.5-10.1); Chloride, Blood 99 mmol/L (98-108); Creatinine, Blood 0.78 mg/dL (0.60-1.20); Glomerular Filtration Rate >60 (60-); Glucose, Blood 156 mg/dL (70-99); Sodium, Blood 137 mmol/L (136-145)
--- NOTE | 2019-02-12 05:41 | NUR ---
SHIFT SUMMARY: JOHNNY IS A 63 Y/O MALE, INDEPENDENT IN THE ROOM. RT FOR BREATHING TREATMENTS, TOOK CONTINUOUS PULSE OX OFF TONIGHT. PATIENT USED CPAP ONLY FOR SHORT PERIOD OF TIME, THEN WENT BACK TO USE OF OXYGEN VIA NC. COUGH IS MILD. LUNGS WERE IMPROVED. PATIENT GRUMPY MOST OF THE NIGHT HE WAS FRUSTRATED WITH BEING IN THE HOSPITAL. PATIENT WANTS TO GO HOME. MEDS ADMINISTERED PER EMAR. NEW RASH STARTED ON BACK, WITH BLISTERS AND ITCHED. CALLED MD AND GOT BENADRYL ORDERED, Q 6 HOURS. GAVE HIM THIS THROUGOUT THE NIGHT. FLUID RESTRICTION: 1,000 ML. LOW PATENT AND DRAINING. XANAX GIVEN PER EMAR FOR ANXIETY. CALL LIGHT IN REACH AND USED APPROPRIATLY. WILL REPORT TO DAY SHIFT RN.
[2019-02-12] MEDS ORDERED: METO25ER PO (09:53)
[2019-02-12] MEDS ORDERED: FLUTICASONE-SA1 EAC2 INH (09:55)
[2019-02-12] MEDS ORDERED: FURO40 PO (09:56)
[2019-02-12] MEDS ORDERED: Nicoderm Cq1 EAC1 TOP (09:56)
[2019-02-12] MEDS ORDERED: LISI5 PO (09:56)
--- NOTE | 2019-02-12 14:30 | NUR ---
PT. DISCHARGED HOME WITH SPOUSE ONCE HIS OXYGEN ARRIVED. YOSSI TO MEET THEM AT 1530 TO SET UP THE HOME O2
== END 2019-02-12 14:29 | disposition home or self-care (01) | DRG 291 ==
LOC: ER 18:29 → ICUE 23:31 → ICUW 23:31 → ICUE 02-04 00:30 → PCU 02-06 00:47 → MEDS 02-08 11:42 → ENPENDDIS 02-12 09:40 → MEDS 02-12 14:29
PROVIDERS: Internal Medicine; Nurse Practitioner Acute Care; Pharmacist Pharmacotherapy; Physician Assistant; ADMIT Hospitalist
DX: I11.0 Hypertensive heart disease with heart failure (principal); J96.22 Acute and chronic respiratory failure with hypercapnia; J96.21 Acute and chronic respiratory failure with hypoxia; N17.9 Acute kidney failure, unspecified; J44.1 Chronic obstructive pulmonary disease with (acute) exacerbation; I50.33 Acute on chronic diastolic (congestive) heart failure; Z95.2 Presence of prosthetic heart valve; I87.8 Other specified disorders of veins; G47.33 Obstructive sleep apnea (adult) (pediatric); F17.210 Nicotine dependence, cigarettes, uncomplicated; E66.9 Obesity, unspecified; Z68.39 Body mass index [BMI] 39.0-39.9, adult
CPT/HCPCS: 0099U; 36415; 36600; 51702; 71046; 80048; 80053; 81003; 82272; 82550; 82803; 83036; 83735; 83880; 84145; 84484; 84550; 85025; 85027; 85610; 93005; 93010; 93306; 94640; 94660; 94760; 94761; 94762; 96365; 96375; 97110; 97162; 97166; 97530; 97535; 98960; 99285-25; A9270; J0456; J1100; J1650; J1940; J2060; J2765; J2916; J2930; J7040; J7050; Q0163

== ENCOUNTER 2019-07-04 23:47 | Emergency (ER) | payer MEDICARE ==
[~2019-07-04] VITALS: Ht 182.9 cm; Wt 124.7 kg
[~2019-07-04 23:47] MED LIST changes: +ALBU90OI INH; +Aspir 8181 MG PO; +B Complex-Foli1 EACH PO; +Catapres0.2 MG PO; +FLUTICASONE-SA1 EAC2 INH; +LISI5 PO; +MAGNESIUM OXID500 MG PO; +METO25ER PO; +Nicoderm Cq1 EAC1 TOP; +Prednisone50 MG PO; +WARF5 PO
[2019-07-05 00:57] LABS: BASOPHILS ABSOLUTE AUTO 0.04 K/mm3 (0.00-0.23); BASOPHILS PERCENT AUTO 0 % (0-2); EOSINOPHILS ABSOLUTE AUTO 0.58 K/mm3 (0.00-0.68); EOSINOPHILS PERCENT AUTO 5 % (0-6); Hematocrit 46.2 % (37.0-53.0); Hemoglobin 15.2 g/dL (13.5-17.5); IMMATURE GRAN ABSOLUTE AUTO 0.05 K/mm3 (0.00-0.10); IMMATURE GRAN PERCENT AUTO 1 % (0-1); LYMPHOCYTES ABSOLUTE AUTO 1.54 K/mm3 (0.84-5.20); LYMPHOCYTES PERCENT AUTO 14 % (21-46); MONOCYTES ABSOLUTE AUTO 0.97 K/mm3 (0.16-1.47); MONOCYTES PERCENT AUTO 9 % (4-13); Mean Corpuscular HGB 30.8 pg (26.0-34.0); Mean Corpuscular HGB Conc 32.9 g/dL (31.5-36.5); Mean Corpuscular Volume 94 fL (80-100); Mean Platelet Volume 9.8 fL (9.1-12.4); NEUTROPHILS PERCENT AUTO 70 % (41-73); Platelet Count 258 K/mm3 (150-400); RDW Coefficient Variation 15.1 % (11.7-14.2); RDW Standard Deviation 51.8 fL (35.1-46.3); Red Blood Cell Count 4.94 M/mm3 (4.30-5.90); White Blood Cell Count 10.78 K/mm3 (4.00-11.30)
[2019-07-05 01:09] LABS: Alanine Aminotransfer (ALT/SGP 29 U/L (12-78); Albumin, Blood 3.7 g/dL (3.4-5.0); Albumin/Globulin Ratio 0.8 (0.8-1.8); Alk Phos 55 U/L (50-136); Anion Gap 5 mmol/L (6-16); Aspartate Aminotrans (AST/SGOT 28 U/L (12-37); Bilirubin, Total 0.4 mg/dL (0.1-1.0); Blood Urea Nitrogen 18 mg/dL (8-24); Bun/Creatinine Ratio 16.7 (12.0-20.0); CO2, Blood 32 mmol/L (21-32); Calcium, Blood 8.8 mg/dL (8.5-10.1); Chloride, Blood 102 mmol/L (98-108); Creatinine, Blood 1.08 mg/dL (0.60-1.20); Globulin, Blood 4.8 g/dL (2.2-4.0); Glomerular Filtration Rate >60 (60-); Glucose, Blood 142 mg/dL (70-99); Potassium, Blood 4.7 mmol/L (3.5-5.5); Sodium, Blood 139 mmol/L (136-145); Total Protein, Blood 8.5 g/dL (6.4-8.2)
[2019-07-05] MEDS ORDERED: Augmentin 875-1 EACH PO (02:59)
== END 2019-07-05 03:20 | disposition home or self-care (01) ==
LOC: ER 23:47
PROVIDERS: Emergency Medicine
DX: K04.7 Periapical abscess without sinus (principal); J44.9 Chronic obstructive pulmonary disease, unspecified; I10 Essential (primary) hypertension; K21.9 Gastro-esophageal reflux disease without esophagitis; M54.9 Dorsalgia, unspecified; M54.2 Cervicalgia; G89.29 Other chronic pain; Z95.2 Presence of prosthetic heart valve; Z79.82 Long term (current) use of aspirin; Z79.01 Long term (current) use of anticoagulants; Z79.899 Other long term (current) drug therapy; Z88.8 Allergy status to other drugs, medicaments and biological substances
CPT/HCPCS: 36415; 80053; 85025; 96374; 99283; J1885

== ENCOUNTER 2020-03-15 15:52 | Emergency (ER) | payer MEDICARE ==
[~2020-03-15] VITALS: Ht 182.9 cm; Wt 124.7 kg
[2020-03-15 16:39] LABS: BASOPHILS ABSOLUTE AUTO 0.06 K/mm3 (0.00-0.23); BASOPHILS PERCENT AUTO 0 % (0-2); EOSINOPHILS ABSOLUTE AUTO 0.42 K/mm3 (0.00-0.68); EOSINOPHILS PERCENT AUTO 3 % (0-6); Hematocrit 27.8 % (37.0-53.0); Hemoglobin 8.5 g/dL (13.5-17.5); IMMATURE GRAN ABSOLUTE AUTO 0.07 K/mm3 (0.00-0.10); IMMATURE GRAN PERCENT AUTO 1 % (0-1); LYMPHOCYTES ABSOLUTE AUTO 1.52 K/mm3 (0.84-5.20); LYMPHOCYTES PERCENT AUTO 11 % (21-46); MONOCYTES ABSOLUTE AUTO 0.84 K/mm3 (0.16-1.47); MONOCYTES PERCENT AUTO 6 % (4-13); Mean Corpuscular HGB 27.4 pg (26.0-34.0); Mean Corpuscular HGB Conc 30.6 g/dL (31.5-36.5); Mean Corpuscular Volume 90 fL (80-100); Mean Platelet Volume 10.1 fL (9.1-12.4); NEUTROPHILS ABSOLUTE AUTO 11.62 K/mm3 (1.96-9.15); NEUTROPHILS PERCENT AUTO 80 % (41-73); Platelet Count 336 K/mm3 (150-400); RDW Standard Deviation 51.9 fL (35.1-46.3); White Blood Cell Count 14.53 K/mm3 (4.00-11.30)
[2020-03-15 16:58] LABS: Alanine Aminotransfer (ALT/SGP 22 U/L (12-78); Albumin, Blood 3.4 g/dL (3.4-5.0); Alk Phos 32 U/L (50-136); Anion Gap 4 mmol/L (6-16); Aspartate Aminotrans (AST/SGOT 15 U/L (12-37); Bilirubin, Total 0.2 mg/dL (0.1-1.0); Blood Urea Nitrogen 47 mg/dL (8-24); Bun/Creatinine Ratio 33.1 (12.0-20.0); CO2, Blood 31 mmol/L (21-32); Calcium, Blood 8.7 mg/dL (8.5-10.1); Chloride, Blood 99 mmol/L (98-108); Creatinine, Blood 1.42 mg/dL (0.60-1.20); Globulin, Blood 3.3 g/dL (2.2-4.0); Glomerular Filtration Rate 53 (60-); Glucose, Blood 147 mg/dL (70-99); Sodium, Blood 134 mmol/L (136-145); Total Protein, Blood 6.7 g/dL (6.4-8.2); Troponin I <0.015 ng/mL (0.000-0.040)
[2020-03-15 18:05] LABS: International Normalized Ratio 5.26; Prothrombin Time Results 51.2 Sec (9.7-11.5)
[2020-03-16] MEDS ORDERED: METOPROLOL SUCC25 MG PO (15:46)
[2020-03-16] MEDS ORDERED: PRINIVIL10 MG PO (15:46)
[2020-03-16] MEDS ORDERED: BUPRENORPHIN-N1 EACH SL (15:47)
[2020-03-16] MEDS ORDERED: SPIRONOLACTONE25 MG PO (15:47)
[2020-03-16] MEDS ORDERED: WARF5 PO ×2 (15:48→15:53)
[2020-03-16] MEDS ORDERED: FUROSEMIDE40 MG PO (15:48)
[2020-03-16] MEDS ORDERED: Catapres0.3 MG PO (15:48)
== END 2020-03-15 18:25 | disposition left against medical advice (07) ==
LOC: ER 15:52
PROVIDERS: Emergency Medicine
DX: K92.2 Gastrointestinal hemorrhage, unspecified (principal); R79.1 Abnormal coagulation profile; N17.9 Acute kidney failure, unspecified; J44.9 Chronic obstructive pulmonary disease, unspecified; I10 Essential (primary) hypertension; F17.210 Nicotine dependence, cigarettes, uncomplicated; Z79.01 Long term (current) use of anticoagulants; Z79.82 Long term (current) use of aspirin; Z88.8 Allergy status to other drugs, medicaments and biological substances; Z79.899 Other long term (current) drug therapy
CPT/HCPCS: 36415; 71045; 80053; 82272; 83880; 84484; 85025; 85610; 93005; 93010; 99285-25

== ENCOUNTER 2020-03-16 13:59 | Emergency (ER) | payer MEDICARE ==
[~2020-03-16] VITALS: Ht 182.9 cm; Wt 124.7 kg
[2020-03-16 14:39] LABS: BASOPHILS ABSOLUTE AUTO 0.05 K/mm3 (0.00-0.23); BASOPHILS PERCENT AUTO 0 % (0-2); EOSINOPHILS ABSOLUTE AUTO 0.16 K/mm3 (0.00-0.68); EOSINOPHILS PERCENT AUTO 1 % (0-6); Hematocrit 26.6 % (37.0-53.0); Hemoglobin 8.2 g/dL (13.5-17.5); IMMATURE GRAN ABSOLUTE AUTO 0.11 K/mm3 (0.00-0.10); IMMATURE GRAN PERCENT AUTO 1 % (0-1); LYMPHOCYTES ABSOLUTE AUTO 1.41 K/mm3 (0.84-5.20); LYMPHOCYTES PERCENT AUTO 9 % (21-46); MONOCYTES ABSOLUTE AUTO 0.74 K/mm3 (0.16-1.47); MONOCYTES PERCENT AUTO 5 % (4-13); Mean Corpuscular HGB 27.8 pg (26.0-34.0); Mean Corpuscular HGB Conc 30.8 g/dL (31.5-36.5); Mean Corpuscular Volume 90 fL (80-100); NEUTROPHILS ABSOLUTE AUTO 13.54 K/mm3 (1.96-9.15); NEUTROPHILS PERCENT AUTO 85 % (41-73); Platelet Count 418 K/mm3 (150-400); RDW Coefficient Variation 16.3 % (11.7-14.2); RDW Standard Deviation 53.3 fL (35.1-46.3); Red Blood Cell Count 2.95 M/mm3 (4.30-5.90); White Blood Cell Count 16.01 K/mm3 (4.00-11.30)
[2020-03-16 15:01] LABS: Alanine Aminotransfer (ALT/SGP 21 U/L (12-78); Albumin, Blood 3.5 g/dL (3.4-5.0); Alk Phos 34 U/L (50-136); Anion Gap 5 mmol/L (6-16); Aspartate Aminotrans (AST/SGOT 13 U/L (12-37); Bilirubin, Total 0.2 mg/dL (0.1-1.0); Blood Urea Nitrogen 46 mg/dL (8-24); Bun/Creatinine Ratio 41.8 (12.0-20.0); CO2, Blood 31 mmol/L (21-32); Calcium, Blood 8.4 mg/dL (8.5-10.1); Chloride, Blood 98 mmol/L (98-108); Globulin, Blood 3.4 g/dL (2.2-4.0); Glomerular Filtration Rate >60 (60-); Glucose, Blood 157 mg/dL (70-99); Sodium, Blood 134 mmol/L (136-145); Total Protein, Blood 6.9 g/dL (6.4-8.2)
[2020-03-16 15:11] LABS: International Normalized Ratio 5.65; Prothrombin Time Results 54.8 Sec (9.7-11.5)
[2020-03-16] MEDS ORDERED: METOPROLOL SUCC25 MG PO (15:46)
[2020-03-16] MEDS ORDERED: PRINIVIL10 MG PO (15:46)
[2020-03-16] MEDS ORDERED: BUPRENORPHIN-N1 EACH SL (15:47)
[2020-03-16] MEDS ORDERED: SPIRONOLACTONE25 MG PO (15:47)
[2020-03-16] MEDS ORDERED: Catapres0.3 MG PO (15:48)
[2020-03-16] MEDS ORDERED: FUROSEMIDE40 MG PO (15:48)
[2020-03-16] MEDS ORDERED: WARF5 PO ×2 (15:48→15:53)
== END 2020-03-16 18:00 | disposition short-term general hospital (02) ==
LOC: ER 13:59
PROVIDERS: Emergency Medicine
DX: K92.2 Gastrointestinal hemorrhage, unspecified (principal); R79.1 Abnormal coagulation profile; D64.9 Anemia, unspecified; J44.9 Chronic obstructive pulmonary disease, unspecified; I10 Essential (primary) hypertension; F17.210 Nicotine dependence, cigarettes, uncomplicated; Z20.828 Contact with and (suspected) exposure to other viral communicable diseases; Z88.8 Allergy status to other drugs, medicaments and biological substances; Z79.01 Long term (current) use of anticoagulants; Z79.82 Long term (current) use of aspirin; Z79.899 Other long term (current) drug therapy
CPT/HCPCS: 36415; 80053; 85025; 85610; 85730; 86850; 86900; 86901; 93005; 93010; 96365; 96366; 99285-25; J3430; U0003

== ENCOUNTER 2020-03-23 13:52 | Day surgery (SDC) | payer MEDICARE ==
[~2020-03-23 13:52] MED LIST changes: +BUPRENORPHIN-N1 EACH SL; +Catapres0.3 MG PO; +FUROSEMIDE40 MG PO; +METOPROLOL SUCC25 MG PO; +PRINIVIL10 MG PO; +SPIRONOLACTONE25 MG PO
[2020-03-23] MEDS ORDERED: GABAPENTIN600 MG PO (14:30)
[2020-03-23] MEDS ORDERED: AMIT50 PO (14:30)
== END 2020-03-23 14:43 | disposition home or self-care (01) ==
LOC: ATC 13:52
DX: Z48.812 Encounter for surgical aftercare following surgery on the circulatory system (principal); D62 Acute posthemorrhagic anemia; K92.1 Melena; J44.9 Chronic obstructive pulmonary disease, unspecified; I10 Essential (primary) hypertension; F17.210 Nicotine dependence, cigarettes, uncomplicated; Z79.01 Long term (current) use of anticoagulants; Z95.4 Presence of other heart-valve replacement; Z79.899 Other long term (current) drug therapy
CPT/HCPCS: 85610; J1650

== ENCOUNTER 2020-03-24 02:15 | Day surgery (SDC) | payer MEDICARE ==
[~2020-03-24 02:15] MED LIST changes: +AMIT50 PO; +GABAPENTIN600 MG PO
[2020-03-27] MEDS ORDERED: WARF10 PO (14:29)
== END 2020-03-24 15:25 | disposition home or self-care (01) ==
LOC: ATC 02:15
DX: D62 Acute posthemorrhagic anemia (principal); K92.1 Melena; Z95.4 Presence of other heart-valve replacement; I10 Essential (primary) hypertension; Z79.01 Long term (current) use of anticoagulants; F17.210 Nicotine dependence, cigarettes, uncomplicated; J44.9 Chronic obstructive pulmonary disease, unspecified; Z79.899 Other long term (current) drug therapy
CPT/HCPCS: 36416; 85610; 96372; J1650

== ENCOUNTER 2020-03-28 00:06 | Day surgery (SDC) | payer MEDICARE ==
--- NOTE | 2020-03-28 15:52 | NUR ---
FINGERSTICK INR 2.0 TODAY. LOVENOX D/C'D PER MD ORDER
--- NOTE | 2020-03-28 15:58 | NUR ---
PT HAD STATED HIS DR HAD HIM TAKE A ONE TIME DOSE OF 17.5MG OF COUMADIN LAST NIGHT.
== END 2020-03-28 15:52 | disposition home or self-care (01) ==
LOC: ATC 00:06
DX: D62 Acute posthemorrhagic anemia (principal); K92.1 Melena; J44.9 Chronic obstructive pulmonary disease, unspecified; I10 Essential (primary) hypertension; Z79.01 Long term (current) use of anticoagulants; Z95.4 Presence of other heart-valve replacement; F17.210 Nicotine dependence, cigarettes, uncomplicated; Z79.899 Other long term (current) drug therapy
CPT/HCPCS: 85610; J1650

== ENCOUNTER 2020-10-22 12:16 | Inpatient (IN) | payer MEDICARE ==
[~2020-10-22] VITALS: Ht 182.9 cm; Wt 116.3 kg
[2020-10-22 12:45] LABS: BASOPHILS ABSOLUTE AUTO 0.02 K/mm3 (0.00-0.23); BASOPHILS PERCENT AUTO 0 % (0-2); EOSINOPHILS ABSOLUTE AUTO 0.31 K/mm3 (0.00-0.68); EOSINOPHILS PERCENT AUTO 2 % (0-6); Hematocrit 19.8 % (37.0-53.0); Hemoglobin 6.2 g/dL (13.5-17.5); IMMATURE GRAN ABSOLUTE AUTO 0.26 K/mm3 (0.00-0.10); IMMATURE GRAN PERCENT AUTO 2 % (0-1); LYMPHOCYTES ABSOLUTE AUTO 2.23 K/mm3 (0.84-5.20); LYMPHOCYTES PERCENT AUTO 16 % (21-46); MONOCYTES PERCENT AUTO 8 % (4-13); Mean Corpuscular HGB Conc 31.3 g/dL (31.5-36.5); Mean Corpuscular Volume 86 fL (80-100); NEUTROPHILS ABSOLUTE AUTO 10.06 K/mm3 (1.96-9.15); NEUTROPHILS PERCENT AUTO 72 % (41-73); NRBC ABSOLUTE 0.05 K/mm3 (0.00-0.02); NRBC Auto 0.4 /100 WBC (0.0-0.2); Platelet Count 371 K/mm3 (150-400); RDW Coefficient Variation 17.3 % (11.7-14.2); RDW Standard Deviation 53.1 fL (35.1-46.3); White Blood Cell Count 13.98 K/mm3 (4.00-11.30)
[2020-10-22 12:56] LABS: Alanine Aminotransfer (ALT/SGP 24 U/L (12-78); Albumin, Blood 3.1 g/dL (3.4-5.0); Alk Phos 37 U/L (50-136); Anion Gap 5 mmol/L (6-16); Aspartate Aminotrans (AST/SGOT 15 U/L (12-37); Bilirubin, Total 0.1 mg/dL (0.1-1.0); Blood Urea Nitrogen 46 mg/dL (8-24); Bun/Creatinine Ratio 37.4 (12.0-20.0); CO2, Blood 29 mmol/L (21-32); Calcium, Blood 8.5 mg/dL (8.5-10.1); Chloride, Blood 99 mmol/L (98-108); Creatinine, Blood 1.23 mg/dL (0.60-1.20); Globulin, Blood 3.2 g/dL (2.2-4.0); Glomerular Filtration Rate >60 (60-); Glucose, Blood 149 mg/dL (70-99); Potassium, Blood 4.1 mmol/L (3.5-5.5); Sodium, Blood 133 mmol/L (136-145); Total Protein, Blood 6.3 g/dL (6.4-8.2)
[2020-10-22 13:06] LABS: International Normalized Ratio 1.83; Prothrombin Time Results 19.1 Sec (9.7-11.5)
[2020-10-22] MEDS ORDERED: BUPRENORPHINE HC8 MG SL (14:51)
[2020-10-22] MEDS ORDERED: PANTOPRAZOLE SO40 M2 PO (14:51)
[2020-10-22] MEDS ORDERED: CLON.3 PO (14:52)
[2020-10-22 15:29] LABS: SARS-Cov-2 (COVID-19) PCR, MMC NEGATIVE (NEGATIVE)
[2020-10-22 15:37] LABS: PCO2 Arterial 53.6 mmHg (35-45); PO2 Arterial 49.7 mmHg (80-100); pH Blood Arterial 7.37 (7.35-7.45)
[2020-10-22] MEDS ORDERED: BUPRENORPHINE HC2 MG SL (16:54)
[2020-10-22] MEDS ORDERED: LISI20 PO (16:55)
--- NOTE | 2020-10-22 17:54 | NUR ---
PT TO ICU ROOM 15 FROM ED. PT ARRIVES WITH FIRST UNIT OF PRBC'S INFUSING. PT ALERT AND ORIENTED, PALE AND WEAK APPEARANCE. PT TRANSFERRED TO ICU BED USING SLIDER SHEET. PT PLACED ON 2L NC D/T O2 SATS 85%, SATS QUICKLY INCREASED TO MID 90'S DECREASING WHEN PT SPEAKING. PT REPORTS THAT HE IS "SUPPOSED TO WEAR CPAP" BUT HAS BEEN NONCOMPLIANT. PT ALSO REPORTS USING 2L NC PRN BUT STATES HE HASN'T NEEDED SUPPLEMENTAL OXYGEN SINCE HE QUIT SMOKING 3 MONTHS AGO. WHILE PT BEING TRANSFERRED TO ICU BED A "PEN VAPE" FELL OUT OF PT'S POCKET. WHEN QUESTIONED ABOUT VAPING PT STATES VAPE IS WIFES AND HE "FOUND IT" IN HIS PANTS. PT CURRENTLY NSR WITH OCCASIONAL PVC'S, HR 72. PER ED REPORT PT WAS IN AFIB ON ADMISSION. PT HAS NOT HAD ANY EPISODES OF BLOODY STOOL SINCE ADMISSION TO ICU. ABDOMEN DISTENDED, SOFT NONTENDER. PT STATES ABDOMEN DISTENDED AT BASELINE. PT DENIES ETOH USE. DR. DEXTER AT BEDSIDE AT THIS TIME PERFORMING UPPER ENDOSCOPY. SEE FULL ADMISSION ASSESSMENT.
--- NOTE | 2020-10-22 18:16 | NUR ---
10/22/20 1816 Rodrick Welch History, Chart, Medications and Allergies reviewed before start of procedure.MONITOR INTACT WITH CONTINUOUS PULSE OXIMETRY AND INTERMITTENT BP.3-LEAD EKG REVIEWED WITH PHYSICIAN PRIOR TO START OF PROCEDURE.O2 VIA N/C INTACT THROUGHOUT SEDATION/PROCEDURE. See Anesthesia record.
[2020-10-22 19:24] LABS: Source, Urine Clean Catch
[2020-10-22 19:27] LABS: Appearance, Urine Clear (Clear); Bilirubin, Urine Neg (Neg); Blood, Urine Neg (Neg); Color, Urine Yellow (P-Yellow); Glucose Qualitative, Urine Neg (Neg); Ketones, Urine Neg (Neg); Leukocyte Esterase, Urine Neg (Neg); Nitrite, Urine Neg (Neg); Protein, Urine Neg (Neg); Specific Gravity, Urine 1.015 (1.003-1.022); Urobilinogen, Urine NORM (Normal)
[2020-10-22 19:34] LABS: Hematocrit 21.4 % (37.0-53.0); Hemoglobin 7.2 g/dL (13.5-17.5)
[2020-10-23 01:42] LABS: BASOPHILS ABSOLUTE AUTO 0.03 K/mm3 (0.00-0.23); BASOPHILS PERCENT AUTO 0 % (0-2); EOSINOPHILS ABSOLUTE AUTO 0.37 K/mm3 (0.00-0.68); EOSINOPHILS PERCENT AUTO 3 % (0-6); Hematocrit 21.5 % (37.0-53.0); Hemoglobin 7.1 g/dL (13.5-17.5); IMMATURE GRAN ABSOLUTE AUTO 0.25 K/mm3 (0.00-0.10); IMMATURE GRAN PERCENT AUTO 2 % (0-1); LYMPHOCYTES ABSOLUTE AUTO 2.16 K/mm3 (0.84-5.20); LYMPHOCYTES PERCENT AUTO 19 % (21-46); MONOCYTES ABSOLUTE AUTO 0.93 K/mm3 (0.16-1.47); MONOCYTES PERCENT AUTO 8 % (4-13); Mean Corpuscular HGB 28.3 pg (26.0-34.0); Mean Corpuscular Volume 86 fL (80-100); Mean Platelet Volume 9.7 fL (9.1-12.4); NEUTROPHILS ABSOLUTE AUTO 7.39 K/mm3 (1.96-9.15); NEUTROPHILS PERCENT AUTO 66 % (41-73); NRBC ABSOLUTE 0.04 K/mm3 (0.00-0.02); NRBC Auto 0.4 /100 WBC (0.0-0.2); Platelet Count 290 K/mm3 (150-400); RDW Coefficient Variation 16.6 % (11.7-14.2); RDW Standard Deviation 49.6 fL (35.1-46.3); Red Blood Cell Count 2.51 M/mm3 (4.30-5.90); White Blood Cell Count 11.13 K/mm3 (4.00-11.30)
[2020-10-23 01:44] LABS: International Normalized Ratio 2.01; Prothrombin Time Results 20.9 Sec (9.7-11.5)
[2020-10-23 01:47] LABS: Alanine Aminotransfer (ALT/SGP 22 U/L (12-78); Albumin, Blood 2.8 g/dL (3.4-5.0); Alk Phos 26 U/L (50-136); Anion Gap 2 mmol/L (6-16); Aspartate Aminotrans (AST/SGOT 12 U/L (12-37); Bilirubin, Total 0.3 mg/dL (0.1-1.0); Blood Urea Nitrogen 29 mg/dL (8-24); Bun/Creatinine Ratio 29.5 (12.0-20.0); CO2, Blood 31 mmol/L (21-32); Chloride, Blood 103 mmol/L (98-108); Creatinine, Blood 0.98 mg/dL (0.60-1.20); Globulin, Blood 2.9 g/dL (2.2-4.0); Glomerular Filtration Rate >60 (60-); Glucose, Blood 142 mg/dL (70-99); Magnesium, Blood 2.1 mg/dL (1.6-2.4); Potassium, Blood 4.2 mmol/L (3.5-5.5); Sodium, Blood 136 mmol/L (136-145); Total Protein, Blood 5.7 g/dL (6.4-8.2)
--- NOTE | 2020-10-23 05:39 | NUR ---
END OF SHIFT SUMMARY: PATIENT HAS BEEN A/O X3 TONIGHT, FORGETTING THE DATE/TIME ONLY SOMETIMES. PATAIENT DENIES PAIN BUT IS VERY LETHARGIC. PATIENT FREQUENTLLY DRIFTS OFF TO SLEEP SOON AFTER SPEAKING WITH HIM/WHILE EATING. PATIENT STATED HOW HUNGRY HE WAS AT BEGINNING OF SHIFT. DR. DEXTER AT BEDSIDE EXPLAINING EGD RESULTS TO PATIENT AND A CLEAR LIQUID DIET WAS ORDERED. PATIENT ATE THREE CUPS OF SOUP WITH NO ISSUES AND HAS SLEPT THE MAJORITY OF THE SHIFT. HGB HOLDING AT 7.1 THIS MORNING. HEPARIN DRIP STARTED LAST NIGHT WELL. NO SIGNS OF BLEEDING FROM PATIENT OR ANY COPLAINTS AT THIS TIME
[2020-10-23 07:13] LABS: Hemoglobin 7.7 g/dL (13.5-17.5)
--- NOTE | 2020-10-23 07:15 | NUR ---
Assumed care of pt at 0715. Bedside report received from Suzan CHILDERS. Pt A&O x 4. Answers questions. Follows commands. Verbalizes needs. Pleasant and cooperative with care. Pt wants to get out of bed, however, pt's HR is sinus, rate 60s, with trigeminy PVCs. It appears that pt has been having frequent PVCs since admit, however he is having approx 20 per minute where previously he was having 7-10. HR in low 60s. Plan to discuss this with hospitalist. Pt voids into urinal without difficulty. Pt on bed malin to try and have BM but unable to do so. Clear liquid diet, tolerating well. Pt on heparin drip per monitor to provide protection for mechanical valve.
--- NOTE | 2020-10-23 11:00 | NUR ---
Dr Lindo in to see pt. Notified provider of trigeminal PVCs. No new orders at this time, will continue to monitor.
--- NOTE | 2020-10-23 14:00 | NUR ---
Dr Ozuna called unit for update on pt. Provider ordered 1 unit PRBC.
--- NOTE | 2020-10-23 16:00 | NUR ---
This morning, pt reported to charge manager, Vargas that when he took his morning meds, he swallowed his SL buprenorphine instead of letting it dissolve sublingually. Right now, he is stating that he is beginning to feel withdrawal from taking his medication inappropriately this morning. Per pharmacistAmy, taking this medication PO instead of SL, absorption is affected and duration may not be as long. Recommends taking 4 mg SL (half of his typical dose) to maintain until he is able to take his dose tonight. Discussed with Dr Lindo and she gave orders for one time dose of 4 mg SL buprenorphine now. Asked Dr Lindo if she is okay with PCU status for patient. She states this is okay if Dr Ozuna permits it. PRBCs done transfusing. Rhythm improved and pt having approx 7 PVCs per minute.
[2020-10-23 17:41] LABS: Hematocrit 23.8 % (37.0-53.0); Hemoglobin 7.7 g/dL (13.5-17.5)
--- NOTE | 2020-10-23 17:41 | NUR ---
Assumed care of pt at 0715. Bedside report received from Suzan CHILDERS. Pt A&O x 4. Answers questions. Follows commands. Verbalizes needs. Pleasant and cooperative with care. Pt wants to get out of bed, however, pt's HR is sinus, rate 60s, with trigeminy PVCs. It appears that pt has been having frequent PVCs since admit, however he is having approx 20 per minute where previously he was having 7-10. HR in low 60s. Plan to discuss this with hospitalist. Pt voids into urinal without difficulty. Pt on bed malin to try and have BM but unable to do so. Clear liquid diet, tolerating well.
--- NOTE | 2020-10-23 18:00 | NUR ---
Dr Ozuna notified of H&H result. HGB 7.7, which is what it was this morning, before pt has PRBC transfusion. Pt to receive one more unti PRBCs and will recheck at 0000. Education given to pt and spouse who were asking about plan of care and asking about potential treatment options (medications, transfer to another facility, colonoscopy/EGD/other invasive procedures. Pt and spouse agreeable with plan to continue monitoring and transfusing as needed.
--- NOTE | 2020-10-23 18:32 | NUR ---
SUMMARY Pt A&O x 4. Answers questions. Follows commands. Verbalizes needs. Pleasant and cooperative with care. Pt remains on 2 LPM NC. SB to SR per monitor. HR ranging from 55-65. Approx 3 PVCs per minute at this time. No BM this shift. Pt is now PCU status. Heparin drip and protonix gtt per orders. Will continue to closely monitor until care handoff and bedside report with oncoming RN.
[2020-10-24 00:25] LABS: Hematocrit 25.2 % (37.0-53.0); Hemoglobin 8.3 g/dL (13.5-17.5)
[2020-10-24 01:31] LABS: International Normalized Ratio 1.61; Prothrombin Time Results 16.9 Sec (9.7-11.5)
[2020-10-24 03:57] LABS: Hematocrit 25.1 % (37.0-53.0); Mean Corpuscular HGB 27.6 pg (26.0-34.0); Mean Corpuscular HGB Conc 31.9 g/dL (31.5-36.5); Mean Corpuscular Volume 87 fL (80-100); Mean Platelet Volume 9.9 fL (9.1-12.4); NRBC ABSOLUTE 0.08 K/mm3 (0.00-0.02); NRBC Auto 0.7 /100 WBC (0.0-0.2); Platelet Count 284 K/mm3 (150-400); RDW Standard Deviation 52.5 fL (35.1-46.3); White Blood Cell Count 11.72 K/mm3 (4.00-11.30)
[2020-10-24 04:14] LABS: Albumin, Blood 2.8 g/dL (3.4-5.0); Anion Gap 0 mmol/L (6-16); Blood Urea Nitrogen 25 mg/dL (8-24); Bun/Creatinine Ratio 23.6 (12.0-20.0); CO2, Blood 33 mmol/L (21-32); Calcium, Blood 8.4 mg/dL (8.5-10.1); Chloride, Blood 100 mmol/L (98-108); Creatinine, Blood 1.06 mg/dL (0.60-1.20); Glomerular Filtration Rate >60 (60-); Glucose, Blood 116 mg/dL (70-99); Phosphorus, Blood 5.1 mg/dL (2.5-4.9); Potassium, Blood 4.4 mmol/L (3.5-5.5); Sodium, Blood 133 mmol/L (136-145)
--- NOTE | 2020-10-24 05:28 | NUR ---
SHIFT SUMMARY PATIENT SLEPT WELL THROUGH NIGHT. NO C/O PAIN, NO EVIDENCE OF BLOOD LOSS, NO BM NOTED. GAVE 1U PRBC WITH NO ISSUES. ASSESSMENT IS CHARTED. VSS. WILL CONTINUE TO MONITOR.
--- NOTE | 2020-10-24 09:00 | NUR ---
FANCY WIRE DRAWER HEATH CALLED DR. DEXTER, NOTIFIED HIM THAT PATIENT WAS FEELING A LITTLE DIZZY/LIGHTHEADED WHILE LYING IN BED. LAST HEMOGLOBIN WAS 8. ORDERS RECEIVED FOR H&H AT 1000. DR. DEXTER THEN CALLED HEATH BACK, ASKED PATIENT'S DIET, HEATH NOTIFIED HIM PATIENT HAD FULL LIQUID BREAKFAST THIS AM. ORDERS RECEIVED FOR WATER AND ICE CHIPS ONLY UNTIL 1300 THEN NPO AFTER 1300 FOR POSSIBLE PROCEDURE. CALL DR. DEXTER WITH H&H 1000 RESULTS.
--- NOTE | 2020-10-24 09:35 | NUR ---
DR. GARCIA AT BEDSIDE. LAST BP 103/56. PATIENT FEELING SLIGHTLY DIZZY AND LIGHTHEADED WHILE IN BED. PVCS APPROXIMATELY EVERY 3-4 BEATS. HAD 3 BEAT RUN OF VTACH THIS AM. DENIES CHEST PAIN. ORDERS RECEIVED TO HOLD ALDACTONE, CATAPRES, LASIX, ZESTRIL THIS AM. OK TO GIVE METOPROLOL, CHANGE PARAMETERS TO HOLD FOR SBP <100 AND HR <55. ORDERS FOR MAGNESIUM AT 1000 WITH H&H.
--- NOTE | 2020-10-24 10:17 | NUR ---
IV TO PATIENT'S R HAND NOTED TO BE DISCONNECTED FROM TUBING (PROTONIX). BLOOD SOAKED BED AND IN THE IV CATHETER. UNABLE TO FLUSH IV. IV D/C'D.
[2020-10-24 10:35] LABS: Hematocrit 26.7 % (37.0-53.0); Hemoglobin 8.6 g/dL (13.5-17.5)
--- NOTE | 2020-10-24 11:30 | NUR ---
DR. DEXTER AT BEDSIDE. SHOWED HIM PATIENT'S LARGE BLACK BOWEL MOVEMENT. REVIEWED 1000 HEMOGLOBIN, 8.6 UP FROM 8.0. ORDERS RECEIVED FOR H+H AT 1500, CALL HIM WITH THE RESULTS. CONTINUE WITH WATER AND ICE CHIPS ONLY UNTIL 1300 AND THEN NPO AFTER 1300.
[2020-10-24 14:52] LABS: Hematocrit 25.7 % (37.0-53.0); Hemoglobin 8.3 g/dL (13.5-17.5)
--- NOTE | 2020-10-24 15:37 | NUR ---
CALLED DR. DEXTER WITH THE LATEST HEMOGLOBIN RESULTS. HEMOGLOBIN WENT FROM 8.[address] DEXTER ORDERED TO RECHECK HEMOGLOBIN AT 2100, HAVE NURSE CALL HIM WITH THE RESULTS. HE ALSO ORDERED FULL LIQUID DIET.
--- NOTE | 2020-10-24 18:00 | NUR ---
SPOKE WITH PHARMACIST ALEXEI REGARDING COUMADIN AND HEPARIN. SHE STATES GIVE COUMADIN, WE ARE BRIDGING WITH HEPARIN AT THIS TIME, LAST INR 1.61.
--- NOTE | 2020-10-24 18:40 | NUR ---
DR. DEXTER AT BEDSIDE. AWARE PATIENT HAD ANOTHER LARGE BLACK STOOL. CONFIRMED H+H AT 2100, GOVERNOR ASSEMBLER RN WILL CALL WITH RESULTS.
--- NOTE | 2020-10-24 19:33 | NUR ---
SHIFT SUMMARY: PATIENT A/OX3. HAS REPORTED SLIGHT LIGHTHEADEDNESS WHILE LAYING IN BED THROUGHOUT THE SHIFT. UP TO BSC WITH 2 ASSIST, REPORTED SLIGHT DIZZINESS WHILE UP TO BSC. HERAT RATE IN THE 50'S-60'S WITH FREQUENT PVCS. BP MEDS HELD THIS AM EXCEPT METOPROLOL PER MD ORDER. HAD TWO LARGE BLACK BMS, MD AWARE. COUMADIN STARTED, BRIDGING WITH HEPARIN. PROTONIX DRIP CONTINUES. PLAN IS FOR H+H AT 2100, CALL DR. DEXTER WITH RESULTS. REPORT GIVEN TO ONCOMING RN.
[2020-10-24 21:02] LABS: Hematocrit 28.7 % (37.0-53.0); Hemoglobin 9.3 g/dL (13.5-17.5)
[2020-10-25 03:39] LABS: Hematocrit 28.8 % (37.0-53.0); Mean Corpuscular HGB Conc 31.3 g/dL (31.5-36.5); Mean Corpuscular Volume 87 fL (80-100); Mean Platelet Volume 10.4 fL (9.1-12.4); Platelet Count 311 K/mm3 (150-400); RDW Coefficient Variation 18.2 % (11.7-14.2); RDW Standard Deviation 53.8 fL (35.1-46.3); Red Blood Cell Count 3.33 M/mm3 (4.30-5.90); White Blood Cell Count 10.11 K/mm3 (4.00-11.30)
[2020-10-25 03:56] LABS: Albumin, Blood 2.8 g/dL (3.4-5.0); Anion Gap 1 mmol/L (6-16); Blood Urea Nitrogen 15 mg/dL (8-24); Bun/Creatinine Ratio 16.4 (12.0-20.0); CO2, Blood 33 mmol/L (21-32); Calcium, Blood 8.5 mg/dL (8.5-10.1); Chloride, Blood 94 mmol/L (98-108); Creatinine, Blood 0.92 mg/dL (0.60-1.20); Glomerular Filtration Rate >60 (60-); Glucose, Blood 101 mg/dL (70-99); Magnesium, Blood 2.2 mg/dL (1.6-2.4); Phosphorus, Blood 4.1 mg/dL (2.5-4.9); Potassium, Blood 4.5 mmol/L (3.5-5.5); Sodium, Blood 128 mmol/L (136-145)
--- NOTE | 2020-10-25 05:02 | NUR ---
SHIFT SUMMARY PATIENT SLEPT WELL THROUGH NIGHT. HEMOGLOBINS HAVE IMPROVED. SOME INFREQUENT ECTOPY, NO SUSTAINED ARHYTHMIAS. ASSESSMENT IS CHARTED. VSS. WILL CONTINUE TO MONITOR.
[2020-10-25 09:52] LABS: International Normalized Ratio 1.32
--- NOTE | 2020-10-25 10:04 | NUR ---
PT IS SLEEPING LATE THIS AM. VSS AND SOMEWHAT SOFT WITH 3 AM MEDS HELD PER PARAMETERS. PT EXPRESSING SOME INTERMITANT DIZZINESS AND GENERALIZED BODY DISCOMFORT. PT FEED SELF AND IS INDICATING HE NEEDS TO HAVE A B.M. AND WAS A BLACK BROWN SMEAR. PT IS ON RA AND DOING WELL.
--- NOTE | 2020-10-25 17:36 | NUR ---
PT FINISHED SUPPER AND TRANSFERED TO 306 VIA W/C. REPORT WAS CALLED TO RN FOR 306. HEPARIN WAS CLAMPED JUST PT LEFT AND RN HAS BEEN GIVEN THE SETTINGS TO RESUME THE HEPARIN GTT. PT AGAIN INDICATES JUST A "WEIRD" DIZZY FEELING WHEN GETING UP TO CHAIR BUT STATES HE IS OK.
--- NOTE | 2020-10-25 18:15 | NUR ---
PT IS AN ICU TRANSFER, WHO WAS ADMITTED FOR ACUTE BLOOD LOSS ANEMIA. PT IS A 65YO AOX4/MALE. PT HAVE AN EXTENSIVE CARDIAC HISTORY, SUCH CAD, MECH VALVE REPLACEMENT, CHF. PT ALSO HAVE COPD; O2 PRN AT HOME, JLUIS- DENIES THE USE OF CPAP. HE CAME IN WITH WEAKNESS AND MELENA. H&H IS NOW CONSIDERED STABLE; PT ON HEPARIN DRIP AND COUMADIN TODAY. PT SWITCHED TO PROTONIX PO. PT NO TELE, NO O2. 1P ASSIST AND WILL START PT/OT TOMORROW. PT STILL HAVING SOME SMEAR BROWN/BLACK STOOL PER CASCARA BARK CUTTER. PT SCATTERED BRUISONG ON BUE. BP IS ON THE LOW SIDE. DENIES CP OR ANY PAIN AT THIS TIME. BED IS IN THE LOWEST POSITION AND CALL LIGHT WITHIN REACH
[2020-10-26 04:50] LABS: Hemoglobin 8.8 g/dL (13.5-17.5); Mean Corpuscular HGB 27.6 pg (26.0-34.0); Mean Corpuscular HGB Conc 31.4 g/dL (31.5-36.5); Mean Corpuscular Volume 88 fL (80-100); Mean Platelet Volume 10.3 fL (9.1-12.4); Platelet Count 288 K/mm3 (150-400); RDW Coefficient Variation 17.4 % (11.7-14.2); RDW Standard Deviation 55.5 fL (35.1-46.3); Red Blood Cell Count 3.19 M/mm3 (4.30-5.90)
[2020-10-26 05:07] LABS: International Normalized Ratio 1.43; Prothrombin Time Results 15.1 Sec (9.7-11.5)
[2020-10-26 05:10] LABS: Albumin, Blood 2.8 g/dL (3.4-5.0); Anion Gap 4 mmol/L (6-16); Blood Urea Nitrogen 14 mg/dL (8-24); CO2, Blood 31 mmol/L (21-32); Calcium, Blood 8.5 mg/dL (8.5-10.1); Chloride, Blood 100 mmol/L (98-108); Creatinine, Blood 0.94 mg/dL (0.60-1.20); Glomerular Filtration Rate >60 (60-); Glucose, Blood 122 mg/dL (70-99); Magnesium, Blood 2.1 mg/dL (1.6-2.4); Phosphorus, Blood 3.8 mg/dL (2.5-4.9); Potassium, Blood 4.1 mmol/L (3.5-5.5); Sodium, Blood 135 mmol/L (136-145)
--- NOTE | 2020-10-26 06:21 | NUR ---
PHARMACY DOSING HEPARIN GTT: RATE IS TO BE CONT'D AT 18 UN/KG/HR (33.5 ML/HR).
--- NOTE | 2020-10-26 07:23 | NUR ---
SUMMARY: A/OX4, CALLS APPROPRIATELY AND SPECIFIES. PHARMACY IS MANAGING HEPARIN GTT AND IT CONT'S INFUSING AT 18 UN/KG/HR (33.5 ML/HR). NO EVIDENCE BLEEDING THIS SHIFT BUT NO BM OBSERVED THIS SHIFT. HE IS SBA OOB W/FALL PREC'S MAINTAINED. HE DENIES PAIN AND ALL OTHER COMPLAINTS AND IS PLEASANT AND COOPERATIVE W/CARE. NO ACUTE CHANGES, VSS/AFEBRILE. WCTM AND REPORT TO DAY RN.
--- NOTE | 2020-10-26 17:12 | NUR ---
PT AOX4 AND COOPERATIVE OF CARE. PT IS DOING WELL A ONE PERSON TRANSFER. PT HAS TAKEN A LOT OF NAPS TODAY. PT SITTING UP AT SIDE OF BED AND IN CHAIR TODAY. PT DENIES PAIN AND HAS CALL LIGHT WITHIN REACH WILL CONTINUE TO MONITOR.
--- NOTE | 2020-10-26 17:42 | NUR ---
Attempted multiple times to see pt, but each time, he was unavailable. Once eating lunch, 3 times napping. Will attempt again tomorrow.
[2020-10-27 05:01] LABS: International Normalized Ratio 1.69; Prothrombin Time Results 17.7 Sec (9.7-11.5)
--- NOTE | 2020-10-27 06:14 | NUR ---
SHIFT SUMMARY A/O, ABLE TO MAKE NEEDS KNOWN. COOPERATIVE WITH CARE. CALLS AND ANSWERS QUESTIONS APPROPRIATELY. NO C/O PAIN/DISCOMFORT. REMAINS ON HEPARIN DRIP. EAGER TO GO HOME SOON. REMAINED ON 2L VIA NC. BP MEDICATIONS HELD R/T LOW HR. NO STOOL THIS SHIFT. APPEARED TO REST WELL OVERNIGHT. BED REMAINS IN LOWEST POSITION. CALL LIGHT AND BELONGINGS WITHIN REACH. CONTINUE WITH CURRENT PLAN OF CARE. REPORT TO ONCOMING RN.
[2020-10-27 07:53] LABS: Hematocrit 31.6 % (37.0-53.0); Hemoglobin 9.8 g/dL (13.5-17.5)
--- NOTE | 2020-10-27 17:13 | NUR ---
PT IS AOX4 AND COOPERATIVE OF CARE. PT DENIES A PAIN AND HAS HAD NO ACUTE CHANGES. PT STATED HIS LAST BM YESTERDAY WAS BLACK. PT'S HGB TODAY WAS 9.8. PT IS A STANDBY ASSIST. PT CALL APPROPRIATELY AND HAS CALL LIGHT WITHIN REACH. WILL CONTINUE TO MONITOR.
[2020-10-28 05:02] LABS: International Normalized Ratio 2.31; Prothrombin Time Results 23.8 Sec (9.7-11.5)
--- NOTE | 2020-10-28 05:02 | NUR ---
AIRCRAFT REFUELLER SUMMARY NO ACUTE CHANGES THIS SHIFT. PT AAOX4 AND PLEASANT. DENIES PAIN. REMAINS ON 2L O2 VIA NC. NO BM'S TONIGHT. REMAINS ON HEPARIN DRIP AT 18 U/KG/HR. VSS, WILL CONTINUE TO MONITOR.
[2020-10-28] MEDS ORDERED: FERRIC X-150150 M1 PO (11:58)
--- NOTE | 2020-10-28 12:32 | NUR ---
PT TO DISCHARGE HOME. MEDS FAXED TO [facility] PER PATIENT. PT EDUCATED REGARDING NEW MED. IVS REMOVED, NO SS OF INFECTION NOTED. APPOINTMENTS MADE FOR PCP AND WARD TO FOLLOW UP WITH PATIENT. PT DRESSED SELF. DAUGHTER TO COME ENGAGEMENT QUALITY CONSULTANT PATIENT AFTER HE FINISHES LUNCH. PT TO WHEELCHAIR DOWN TO CAR.
== END 2020-10-28 14:49 | disposition home or self-care (01) | DRG 813 ==
LOC: ER 12:16 → ICUW 14:56 → ER 15:26 → ICUW 16:31 → MEDS 10-25 17:35
PROVIDERS: Emergency Medicine; Internal Medicine; Internal Medicine Gastroenterology; Nurse Practitioner Acute Care; Physician Assistant; ADMIT Family Medicine
PROC: 0DJ08ZZ Inspection of Upper Intestinal Tract, Via Natural or Artificial Opening Endoscopic (ICD-10-PCS; principal; 2020-10-22 17:00)
PROC: 30233N1 Transfusion of Nonautologous Red Blood Cells into Peripheral Vein, Percutaneous Approach (ICD-10-PCS; 2020-10-23)
DX: D68.32 Hemorrhagic disorder due to extrinsic circulating anticoagulants (principal); D62 Acute posthemorrhagic anemia; I50.32 Chronic diastolic (congestive) heart failure; F11.20 Opioid dependence, uncomplicated; K92.1 Melena; T45.515A Adverse effect of anticoagulants, initial encounter; G47.33 Obstructive sleep apnea (adult) (pediatric); J44.9 Chronic obstructive pulmonary disease, unspecified; Z79.01 Long term (current) use of anticoagulants; I25.10 Atherosclerotic heart disease of native coronary artery without angina pectoris; Z95.2 Presence of prosthetic heart valve; Z91.19 Patient's noncompliance with other medical treatment and regimen; Z88.8 Allergy status to other drugs, medicaments and biological substances; E78.5 Hyperlipidemia, unspecified; I10 Essential (primary) hypertension; F41.9 Anxiety disorder, unspecified; K55.20 Angiodysplasia of colon without hemorrhage; K21.9 Gastro-esophageal reflux disease without esophagitis; G89.29 Other chronic pain; M54.2 Cervicalgia; Z98.890 Other specified postprocedural states; Z79.899 Other long term (current) drug therapy; Z87.891 Personal history of nicotine dependence; I11.0 Hypertensive heart disease with heart failure; I49.3 Ventricular premature depolarization
CPT/HCPCS: 36415; 36416; 36430; 36600; 71045; 80053; 80069; 81003; 82803; 83735; 84100; 85014; 85018; 85025; 85027; 85610; 85730; 86850; 86900; 86901; 86923; 93005; 93010; 93306; 94640; 94760; 96365; 96367; 96375; 97110; 97162; 97165; 97530; 99285-25; A9270; C9113; J0171; J0696; J1430; J1644; J2250; J2354; J2370; J2704; J3010; J7030; J7040; J7120; P9016; U0004

== ENCOUNTER 2020-12-14 09:42 | Emergency (ER) | payer MEDICARE ==
[~2020-12-14] VITALS: Ht 182.9 cm; Wt 108.9 kg
[~2020-12-14 09:42] MED LIST changes: +BUPRENORPHINE HC2 MG SL; +BUPRENORPHINE HC8 MG SL; +CLON.3 PO; +FERRIC X-150150 M1 PO; +LISI20 PO; +PANTOPRAZOLE SO40 M2 PO
[2020-12-14 11:05] LABS: Alanine Aminotransfer (ALT/SGP 16 U/L (12-78); Albumin, Blood 2.7 g/dL (3.4-5.0); Albumin/Globulin Ratio 0.5 (0.8-1.8); Alk Phos 54 U/L (50-136); Anion Gap 5 mmol/L (6-16); Aspartate Aminotrans (AST/SGOT 13 U/L (12-37); Bilirubin, Total 0.3 mg/dL (0.1-1.0); Blood Urea Nitrogen 9 mg/dL (8-24); Bun/Creatinine Ratio 11.6 (12.0-20.0); CO2, Blood 32 mmol/L (21-32); Calcium, Blood 9.3 mg/dL (8.5-10.1); Chloride, Blood 98 mmol/L (98-108); Creatinine, Blood 0.77 mg/dL (0.60-1.20); Globulin, Blood 5.9 g/dL (2.2-4.0); Glomerular Filtration Rate >60 (60-); Glucose, Blood 136 mg/dL (70-99); Potassium, Blood 4.3 mmol/L (3.5-5.5); Sodium, Blood 135 mmol/L (136-145); Total Protein, Blood 8.6 g/dL (6.4-8.2)
[2020-12-14 11:06] LABS: International Normalized Ratio 3.48
[2020-12-14 11:14] LABS: BASOPHILS ABSOLUTE AUTO 0.03 K/mm3 (0.00-0.23); BASOPHILS PERCENT AUTO 0 % (0-2); EOSINOPHILS ABSOLUTE AUTO 0.09 K/mm3 (0.00-0.68); EOSINOPHILS PERCENT AUTO 1 % (0-6); Hematocrit 35.6 % (37.0-53.0); Hemoglobin 10.3 g/dL (13.5-17.5); IMMATURE GRAN ABSOLUTE AUTO 0.11 K/mm3 (0.00-0.10); IMMATURE GRAN PERCENT AUTO 1 % (0-1); LYMPHOCYTES ABSOLUTE AUTO 0.82 K/mm3 (0.84-5.20); LYMPHOCYTES PERCENT AUTO 6 % (21-46); MONOCYTES ABSOLUTE AUTO 0.73 K/mm3 (0.16-1.47); MONOCYTES PERCENT AUTO 5 % (4-13); Mean Corpuscular HGB 22.6 pg (26.0-34.0); Mean Corpuscular HGB Conc 28.9 g/dL (31.5-36.5); Mean Corpuscular Volume 78 fL (80-100); Mean Platelet Volume 9.8 fL (9.1-12.4); NEUTROPHILS ABSOLUTE AUTO 13.24 K/mm3 (1.96-9.15); NEUTROPHILS PERCENT AUTO 88 % (41-73); Platelet Count 629 K/mm3 (150-400); RDW Coefficient Variation 17.6 % (11.7-14.2); RDW Standard Deviation 50.4 fL (35.1-46.3); Red Blood Cell Count 4.56 M/mm3 (4.30-5.90); White Blood Cell Count 15.02 K/mm3 (4.00-11.30)
== END 2020-12-14 16:45 | disposition home or self-care (01) ==
LOC: ER 09:42
PROVIDERS: Emergency Medicine
DX: K92.1 Melena (principal); I10 Essential (primary) hypertension; K21.9 Gastro-esophageal reflux disease without esophagitis; I50.32 Chronic diastolic (congestive) heart failure; J44.9 Chronic obstructive pulmonary disease, unspecified; Z88.8 Allergy status to other drugs, medicaments and biological substances; Z79.01 Long term (current) use of anticoagulants; Z79.899 Other long term (current) drug therapy
CPT/HCPCS: 36415; 80053; 85025; 85610; 86850; 86900; 86901; 93005; 93010; 99284-25

== ENCOUNTER 2020-12-18 23:30 | Inpatient (IN) | payer MEDICARE ==
[~2020-12-18] VITALS: Ht 182.9 cm; Wt 106.9 kg
[2020-12-18 23:53] LABS: BASOPHILS ABSOLUTE AUTO 0.07 K/mm3 (0.00-0.23); BASOPHILS PERCENT AUTO 0 % (0-2); EOSINOPHILS ABSOLUTE AUTO 0.03 K/mm3 (0.00-0.68); EOSINOPHILS PERCENT AUTO 0 % (0-6); Hematocrit 33.7 % (37.0-53.0); Hemoglobin 9.8 g/dL (13.5-17.5); IMMATURE GRAN ABSOLUTE AUTO 0.44 K/mm3 (0.00-0.10); IMMATURE GRAN PERCENT AUTO 1 % (0-1); LYMPHOCYTES ABSOLUTE AUTO 0.78 K/mm3 (0.84-5.20); LYMPHOCYTES PERCENT AUTO 2 % (21-46); MONOCYTES ABSOLUTE AUTO 2.41 K/mm3 (0.16-1.47); MONOCYTES PERCENT AUTO 7 % (4-13); Mean Corpuscular HGB 22.4 pg (26.0-34.0); Mean Corpuscular HGB Conc 29.1 g/dL (31.5-36.5); Mean Corpuscular Volume 77 fL (80-100); Mean Platelet Volume 9.5 fL (9.1-12.4); NEUTROPHILS ABSOLUTE AUTO 29.48 K/mm3 (1.96-9.15); NEUTROPHILS PERCENT AUTO 89 % (41-73); Platelet Count 689 K/mm3 (150-400); RDW Coefficient Variation 18.3 % (11.7-14.2); RDW Standard Deviation 51.1 fL (35.1-46.3); Red Blood Cell Count 4.38 M/mm3 (4.30-5.90); White Blood Cell Count 33.21 K/mm3 (4.00-11.30)
[2020-12-19 00:10] LABS: International Normalized Ratio 2.94; Prothrombin Time Results 29.9 Sec (9.7-11.5)
[2020-12-19 00:15] LABS: Alanine Aminotransfer (ALT/SGP 17 U/L (12-78); Albumin, Blood 1.8 g/dL (3.4-5.0); Albumin/Globulin Ratio 0.3 (0.8-1.8); Alk Phos 66 U/L (50-136); Anion Gap 5 mmol/L (6-16); Aspartate Aminotrans (AST/SGOT 22 U/L (12-37); Bilirubin, Total 0.3 mg/dL (0.1-1.0); Blood Urea Nitrogen 31 mg/dL (8-24); Bun/Creatinine Ratio 27.7 (12.0-20.0); CO2, Blood 28 mmol/L (21-32); Calcium, Blood 9.2 mg/dL (8.5-10.1); Chloride, Blood 98 mmol/L (98-108); Creatinine, Blood 1.12 mg/dL (0.60-1.20); Globulin, Blood 5.4 g/dL (2.2-4.0); Glomerular Filtration Rate >60 (60-); Glucose, Blood 169 mg/dL (70-99); Potassium, Blood 5.1 mmol/L (3.5-5.5); Sodium, Blood 131 mmol/L (136-145); Total Protein, Blood 7.2 g/dL (6.4-8.2); Troponin I <0.015 ng/mL (0.000-0.040)
[2020-12-19 03:15] LABS: Adenovirus Not Detected (NOT DETECT); Bordetella pertussis Not Detected (NOT DETECT); Chlamydophila pneumoniae Not Detected (NOT DETECT); Coronavirus 229E Not Detected (NOT DETECT); Coronavirus HKU1 Not Detected (NOT DETECT); Coronavirus NL63 Not Detected (NOT DETECT); Coronavirus OC43 Not Detected (NOT DETECT); Human Metapneumovirus Not Detected (NOT DETECT); Human Rhinovirus/Enterovirus Not Detected (NOT DETECT); Influenza A/2009-H1 Not Detected (NOT DETECT); Influenza A/H1 Not Detected (NOT DETECT); Influenza A/H3 Not Detected (NOT DETECT); Influenza B Not Detected (NOT DETECT); Mycoplasma pneumoniae Not Detected (NOT DETECT); Parainfluenza Virus 1 Not Detected (NOT DETECT); Parainfluenza Virus 2 Not Detected (NOT DETECT); Parainfluenza Virus 3 Not Detected (NOT DETECT); Parainfluenza Virus 4 Not Detected (NOT DETECT); Respiratory Syncytial Virus Not Detected (NOT DETECT); SARS-Cov-2 (COVID-19), BioFire Not Detected (NOT DETECT)
[2020-12-19] MEDS ORDERED: BUPRENORPHINE HC2 M1 SL (03:24)
[2020-12-19] MEDS ORDERED: CATAPRES0.3 MG PO (03:25)
[2020-12-19] MEDS ORDERED: FUROSEMIDE40 MG PO (03:26)
[2020-12-19] MEDS ORDERED: GABA100 PO (03:27)
[2020-12-19] MEDS ORDERED: Zestril30 MG PO (03:28)
[2020-12-19] MEDS ORDERED: METO25ER PO (03:29)
[2020-12-19] MEDS ORDERED: PANT40 PO (03:31)
[2020-12-19] MEDS ORDERED: FERREX 150150 M1 PO (03:32)
[2020-12-19] MEDS ORDERED: ALDACTONE25 MG PO (03:33)
[2020-12-19] MEDS ORDERED: Coumadin5 MG PO (03:34)
[2020-12-19] MEDS ORDERED: LISI20 (05:13)
[2020-12-19] MEDS ORDERED: Spironolactone25 MG PO (05:13)
[2020-12-19] MEDS ORDERED: FURO40 PO (05:13)
[2020-12-19] MEDS ORDERED: WARF5 PO (05:14)
[2020-12-19] MEDS ORDERED: AMITRIPTYLINE150 M1 PO (05:14)
[2020-12-19] MEDS ORDERED: METO5A PO (05:14)
[2020-12-19] MEDS ORDERED: TOPROL XL25 MG PO (05:15)
[2020-12-19 05:28] LABS: BASOPHILS ABSOLUTE AUTO 0.05 K/mm3 (0.00-0.23); BASOPHILS PERCENT AUTO 0 % (0-2); EOSINOPHILS ABSOLUTE AUTO 0.01 K/mm3 (0.00-0.68); EOSINOPHILS PERCENT AUTO 0 % (0-6); Hematocrit 32.7 % (37.0-53.0); Hemoglobin 9.7 g/dL (13.5-17.5); IMMATURE GRAN ABSOLUTE AUTO 0.39 K/mm3 (0.00-0.10); IMMATURE GRAN PERCENT AUTO 1 % (0-1); LYMPHOCYTES ABSOLUTE AUTO 1.08 K/mm3 (0.84-5.20); LYMPHOCYTES PERCENT AUTO 3 % (21-46); MONOCYTES PERCENT AUTO 8 % (4-13); Mean Corpuscular HGB Conc 29.7 g/dL (31.5-36.5); Mean Corpuscular Volume 78 fL (80-100); NEUTROPHILS ABSOLUTE AUTO 29.91 K/mm3 (1.96-9.15); NEUTROPHILS PERCENT AUTO 88 % (41-73); Platelet Count 695 K/mm3 (150-400); RDW Coefficient Variation 18.4 % (11.7-14.2); RDW Standard Deviation 50.8 fL (35.1-46.3); Red Blood Cell Count 4.22 M/mm3 (4.30-5.90); White Blood Cell Count 34.04 K/mm3 (4.00-11.30)
[2020-12-19 05:40] LABS: International Normalized Ratio 2.92; Prothrombin Time Results 29.7 Sec (9.7-11.5)
[2020-12-19 05:46] LABS: Anion Gap 3 mmol/L (6-16); Blood Urea Nitrogen 29 mg/dL (8-24); Bun/Creatinine Ratio 27.6 (12.0-20.0); CO2, Blood 30 mmol/L (21-32); Calcium, Blood 9.1 mg/dL (8.5-10.1); Chloride, Blood 98 mmol/L (98-108); Creatinine, Blood 1.05 mg/dL (0.60-1.20); Glomerular Filtration Rate >60 (60-); Glucose, Blood 134 mg/dL (70-99); Potassium, Blood 5.4 mmol/L (3.5-5.5); Sodium, Blood 131 mmol/L (136-145)
[2020-12-19 09:44] LABS: Hematocrit 31.6 % (37.0-53.0); Hemoglobin 9.1 g/dL (13.5-17.5)
[2020-12-19 15:50] LABS: Hematocrit 31.4 % (37.0-53.0); Hemoglobin 9.1 g/dL (13.5-17.5)
[2020-12-20 07:18] LABS: BASOPHILS ABSOLUTE AUTO 0.03 K/mm3 (0.00-0.23); BASOPHILS PERCENT AUTO 0 % (0-2); EOSINOPHILS ABSOLUTE AUTO 0.05 K/mm3 (0.00-0.68); EOSINOPHILS PERCENT AUTO 0 % (0-6); Hematocrit 29.1 % (37.0-53.0); Hemoglobin 8.5 g/dL (13.5-17.5); IMMATURE GRAN ABSOLUTE AUTO 0.15 K/mm3 (0.00-0.10); IMMATURE GRAN PERCENT AUTO 1 % (0-1); LYMPHOCYTES ABSOLUTE AUTO 0.74 K/mm3 (0.84-5.20); LYMPHOCYTES PERCENT AUTO 3 % (21-46); MONOCYTES ABSOLUTE AUTO 1.85 K/mm3 (0.16-1.47); MONOCYTES PERCENT AUTO 7 % (4-13); Mean Corpuscular HGB 22.7 pg (26.0-34.0); Mean Corpuscular HGB Conc 29.2 g/dL (31.5-36.5); Mean Corpuscular Volume 78 fL (80-100); Mean Platelet Volume 9.3 fL (9.1-12.4); NEUTROPHILS ABSOLUTE AUTO 23.42 K/mm3 (1.96-9.15); NEUTROPHILS PERCENT AUTO 89 % (41-73); Platelet Count 557 K/mm3 (150-400); RDW Coefficient Variation 18.3 % (11.7-14.2); RDW Standard Deviation 51.6 fL (35.1-46.3); Red Blood Cell Count 3.75 M/mm3 (4.30-5.90); White Blood Cell Count 26.24 K/mm3 (4.00-11.30)
[2020-12-20 07:37] LABS: Vancomycin, Trough 15.4 ug/mL (5.0-10.0)
[2020-12-20 07:41] LABS: Prothrombin Time Results 53.2 Sec (9.7-11.5)
[2020-12-20 07:46] LABS: International Normalized Ratio 5.42
[2020-12-20 16:43] LABS: Hematocrit 32.5 % (37.0-53.0); Hemoglobin 9.4 g/dL (13.5-17.5)
[2020-12-20 17:01] LABS: International Normalized Ratio 1.87
[2020-12-20 17:09] LABS: Prothrombin Time Results 19.5 Sec (9.7-11.5)
[2020-12-20 17:37] LABS: Magnesium, Blood 2.3 mg/dL (1.6-2.4)
[2020-12-20 17:39] LABS: Thyroid Stimulating Hormone 0.626 uIU/mL (0.360-4.800)
[2020-12-20 20:14] LABS: International Normalized Ratio 1.49
[2020-12-20 20:18] LABS: Prothrombin Time Results 15.7 Sec (9.7-11.5)
[2020-12-21 04:33] LABS: BASOPHILS ABSOLUTE AUTO 0.02 K/mm3 (0.00-0.23); BASOPHILS PERCENT AUTO 0 % (0-2); EOSINOPHILS ABSOLUTE AUTO 0.05 K/mm3 (0.00-0.68); EOSINOPHILS PERCENT AUTO 0 % (0-6); Hematocrit 30.5 % (37.0-53.0); Hemoglobin 8.7 g/dL (13.5-17.5); IMMATURE GRAN ABSOLUTE AUTO 0.12 K/mm3 (0.00-0.10); IMMATURE GRAN PERCENT AUTO 1 % (0-1); LYMPHOCYTES ABSOLUTE AUTO 0.94 K/mm3 (0.84-5.20); LYMPHOCYTES PERCENT AUTO 4 % (21-46); MONOCYTES ABSOLUTE AUTO 1.34 K/mm3 (0.16-1.47); MONOCYTES PERCENT AUTO 6 % (4-13); Mean Corpuscular HGB 22.4 pg (26.0-34.0); Mean Corpuscular HGB Conc 28.5 g/dL (31.5-36.5); Mean Corpuscular Volume 78 fL (80-100); Mean Platelet Volume 9.9 fL (9.1-12.4); NEUTROPHILS ABSOLUTE AUTO 19.25 K/mm3 (1.96-9.15); NEUTROPHILS PERCENT AUTO 89 % (41-73); Platelet Count 585 K/mm3 (150-400); RDW Coefficient Variation 18.3 % (11.7-14.2); RDW Standard Deviation 51.9 fL (35.1-46.3); Red Blood Cell Count 3.89 M/mm3 (4.30-5.90); White Blood Cell Count 21.72 K/mm3 (4.00-11.30)
[2020-12-21 04:53] LABS: Anion Gap 2 mmol/L (6-16); Blood Urea Nitrogen 28 mg/dL (8-24); Bun/Creatinine Ratio 36.7 (12.0-20.0); CO2, Blood 33 mmol/L (21-32); Calcium, Blood 9.2 mg/dL (8.5-10.1); Chloride, Blood 100 mmol/L (98-108); Creatinine, Blood 0.76 mg/dL (0.60-1.20); Glomerular Filtration Rate >60 (60-); Glucose, Blood 123 mg/dL (70-99); Potassium, Blood 4.9 mmol/L (3.5-5.5); Sodium, Blood 135 mmol/L (136-145)
[2020-12-21 04:56] LABS: International Normalized Ratio 1.24; Prothrombin Time Results 13.2 Sec (9.7-11.5)
== END 2020-12-21 11:10 | disposition short-term general hospital (02) | DRG 871 ==
LOC: ER 23:30 → ERHOLD 12-19 03:35 → PCU 12-19 03:35
PROVIDERS: Emergency Medicine; Internal Medicine; Internal Medicine Critical Care Medicine; Student in an Organized Health Care Education/Training Program; ADMIT Family Medicine
PROC: 5A09357 Assistance with Respiratory Ventilation, Less than 24 Consecutive Hours, Continuous Positive Airway Pressure (ICD-10-PCS; principal; 2020-12-20)
PROC: 0W993ZZ Drainage of Right Pleural Cavity, Percutaneous Approach (ICD-10-PCS; 2020-12-20)
DX: A41.9 Sepsis, unspecified organism (principal); J96.01 Acute respiratory failure with hypoxia; J86.9 Pyothorax without fistula; C34.91 Malignant neoplasm of unspecified part of right bronchus or lung; I42.0 Dilated cardiomyopathy; K92.1 Melena; D68.32 Hemorrhagic disorder due to extrinsic circulating anticoagulants; J91.8 Pleural effusion in other conditions classified elsewhere; I50.32 Chronic diastolic (congestive) heart failure; Z20.822 Contact with and (suspected) exposure to COVID-19; G89.29 Other chronic pain; M54.9 Dorsalgia, unspecified; I25.10 Atherosclerotic heart disease of native coronary artery without angina pectoris; M54.2 Cervicalgia; I27.20 Pulmonary hypertension, unspecified; G47.33 Obstructive sleep apnea (adult) (pediatric); I11.0 Hypertensive heart disease with heart failure; E78.00 Pure hypercholesterolemia, unspecified; R65.20 Severe sepsis without septic shock; J44.9 Chronic obstructive pulmonary disease, unspecified; K21.9 Gastro-esophageal reflux disease without esophagitis; E11.9 Type 2 diabetes mellitus without complications; D50.0 Iron deficiency anemia secondary to blood loss (chronic); T45.515A Adverse effect of anticoagulants, initial encounter; I48.91 Unspecified atrial fibrillation; I95.9 Hypotension, unspecified; Z98.890 Other specified postprocedural states; Z87.891 Personal history of nicotine dependence; Z79.01 Long term (current) use of anticoagulants; Z95.2 Presence of prosthetic heart valve; Z88.8 Allergy status to other drugs, medicaments and biological substances; Z79.899 Other long term (current) drug therapy; Z87.11 Personal history of peptic ulcer disease; Z86.010 Personal history of colon polyps; Z95.1 Presence of aortocoronary bypass graft
CPT/HCPCS: 0202U; 36415; 71045; 71046; 74176; 80048; 80053; 80202; 83605; 83690; 83735; 84443; 84484; 85014; 85018; 85025; 85610; 85730; 87040; 93005; 93010; 93308; 93321; 94640; 94660; 94762; 99285-25; A9270; C9113; J0295; J1644; J2765; J3010; J3370; J3430; J7050

== ENCOUNTER 2020-12-31 07:17 | Day surgery (SDC) | payer MEDICARE ==
[~2020-12-31] VITALS: Wt 108.3 kg
[~2020-12-31 07:17] MED LIST changes: +ALDACTONE25 MG PO; +AMITRIPTYLINE150 M1 PO; +BUPRENORPHINE HC2 M1 SL; +CATAPRES0.3 MG PO; +Coumadin5 MG PO; +FERREX 150150 M1 PO; +GABA100 PO; +LISI20; +METO5A PO; +PANT40 PO; +Spironolactone25 MG PO; +TOPROL XL25 MG PO; +Zestril30 MG PO
[2020-12-31] MEDS ORDERED: METO100ER PO (08:06)
[2020-12-31] MEDS ORDERED: DILT120ERA PO (08:09)
== END 2020-12-31 16:49 | disposition home or self-care (01) ==
LOC: ATC 07:17
DX: Z95.2 Presence of prosthetic heart valve (principal); Z79.01 Long term (current) use of anticoagulants; Z88.8 Allergy status to other drugs, medicaments and biological substances
CPT/HCPCS: 36416; 96372; J1650

== ENCOUNTER 2021-01-01 01:02 | Day surgery (SDC) | payer MEDICARE ==
[~2021-01-01 01:02] MED LIST changes: +DILT120ERA PO; +METO100ER PO
== END 2021-01-01 17:10 | disposition home or self-care (01) ==
LOC: ATC 01:02
DX: Z95.2 Presence of prosthetic heart valve (principal); I48.91 Unspecified atrial fibrillation; Z79.01 Long term (current) use of anticoagulants; Z88.8 Allergy status to other drugs, medicaments and biological substances
CPT/HCPCS: 36416; 96372; J1650

== ENCOUNTER 2021-01-02 08:39 | Day surgery (SDC) | payer MEDICARE ==
[2021-01-02 09:37] LABS: International Normalized Ratio 2.36; Prothrombin Time Results 24.3 Sec (9.7-11.5)
== END 2021-01-02 16:40 | disposition home or self-care (01) ==
LOC: ATC 08:39
PROVIDERS: Nurse Practitioner Family
DX: Z95.2 Presence of prosthetic heart valve (principal); I48.91 Unspecified atrial fibrillation; G89.4 Chronic pain syndrome; Z79.01 Long term (current) use of anticoagulants; Z88.8 Allergy status to other drugs, medicaments and biological substances
CPT/HCPCS: 36415; 36416; 85610; 96372; J1650

== ENCOUNTER 2021-01-03 07:38 | Day surgery (SDC) | payer MEDICARE ==
--- NOTE | 2021-01-03 10:05 | NUR ---
FINGERSTICK INR: 2.6 TODAY, NO INJECTION GIVEN
== END 2021-01-03 07:50 | disposition home or self-care (01) ==
LOC: ATC 07:38
DX: Z95.2 Presence of prosthetic heart valve (principal); I48.91 Unspecified atrial fibrillation; Z88.8 Allergy status to other drugs, medicaments and biological substances; Z79.01 Long term (current) use of anticoagulants
CPT/HCPCS: 36416; 99211

== ENCOUNTER 2021-09-24 11:37 | Emergency (ER) | payer MEDICARE ==
[~2021-09-24] VITALS: Ht 182.9 cm; Wt 122.5 kg
[2021-09-24 12:54] LABS: BASOPHILS ABSOLUTE AUTO 0.02 K/mm3 (0.00-0.23); BASOPHILS PERCENT AUTO 0 % (0-2); EOSINOPHILS ABSOLUTE AUTO 0.31 K/mm3 (0.00-0.68); EOSINOPHILS PERCENT AUTO 4 % (0-6); Hematocrit 39.6 % (37.0-53.0); Hemoglobin 13.2 g/dL (13.5-17.5); IMMATURE GRAN ABSOLUTE AUTO 0.03 K/mm3 (0.00-0.10); IMMATURE GRAN PERCENT AUTO 0 % (0-1); LYMPHOCYTES ABSOLUTE AUTO 0.94 K/mm3 (0.84-5.20); LYMPHOCYTES PERCENT AUTO 13 % (21-46); MONOCYTES ABSOLUTE AUTO 0.65 K/mm3 (0.16-1.47); MONOCYTES PERCENT AUTO 9 % (4-13); Mean Corpuscular HGB 28.8 pg (26.0-34.0); Mean Corpuscular HGB Conc 33.3 g/dL (31.5-36.5); Mean Corpuscular Volume 86 fL (80-100); Mean Platelet Volume 9.4 fL (9.1-12.4); NEUTROPHILS ABSOLUTE AUTO 5.07 K/mm3 (1.96-9.15); NEUTROPHILS PERCENT AUTO 72 % (41-73); Platelet Count 245 K/mm3 (150-400); RDW Coefficient Variation 14.6 % (11.7-14.2); Red Blood Cell Count 4.59 M/mm3 (4.30-5.90); White Blood Cell Count 7.02 K/mm3 (4.00-11.30)
[2021-09-24 13:23] LABS: Alanine Aminotransfer (ALT/SGP 34 U/L (12-78); Albumin, Blood 3.3 g/dL (3.4-5.0); Albumin/Globulin Ratio 0.7 (0.8-1.8); Alk Phos 62 U/L (50-136); Anion Gap 6 mmol/L (6-16); Aspartate Aminotrans (AST/SGOT 27 U/L (12-37); Bilirubin, Total 0.4 mg/dL (0.1-1.0); Blood Urea Nitrogen 20 mg/dL (8-24); Bun/Creatinine Ratio 23.6 (12.0-20.0); CO2, Blood 32 mmol/L (21-32); Calcium, Blood 9.3 mg/dL (8.5-10.1); Chloride, Blood 98 mmol/L (98-108); Creatinine, Blood 0.85 mg/dL (0.60-1.20); Globulin, Blood 4.8 g/dL (2.2-4.0); Glomerular Filtration Rate >60 (60-); Glucose, Blood 216 mg/dL (70-99); Potassium, Blood 4.4 mmol/L (3.5-5.5); Sodium, Blood 136 mmol/L (136-145); Thyroid Stimulating Hormone 0.906 uIU/mL (0.360-4.800); Total Protein, Blood 8.1 g/dL (6.4-8.2)
[2021-09-24 13:51] LABS: International Normalized Ratio 2.5; Prothrombin Time Results 24.7 Sec (9.7-11.5)
[2021-09-24 14:22] LABS: Base Excess Venous 8.3 mmol/L; Bicarbonate Venous 30.7 mmol/L (24.0-30.0); PCO2 Venous 51.3 mmHg (38-42); PO2 Venous 96.1 mmHg (38-42); pH Blood Venous 7.42 (7.34-7.37)
== END 2021-09-24 14:51 | disposition home or self-care (01) ==
LOC: ER 11:37
PROVIDERS: Emergency Medicine
DX: R53.1 Weakness (principal); I11.0 Hypertensive heart disease with heart failure; I50.32 Chronic diastolic (congestive) heart failure; J44.9 Chronic obstructive pulmonary disease, unspecified; I48.4 Atypical atrial flutter; Z95.2 Presence of prosthetic heart valve; Z88.8 Allergy status to other drugs, medicaments and biological substances; Z79.01 Long term (current) use of anticoagulants
CPT/HCPCS: 36415; 80053; 82803; 83690; 83880; 84443; 84484; 85025; 85610; 93005; 93010

== ENCOUNTER 2022-07-21 09:55 | Observation (INO) | payer MEDICARE ==
[~2022-07-21] VITALS: Ht 182.9 cm; Wt 124.9 kg
[~2022-07-21 09:55] MED LIST changes: +FLOMAX0.4 MG PO
[2022-07-21 10:59] LABS: BASOPHILS ABSOLUTE AUTO 0.03 K/mm3 (0.00-0.23); BASOPHILS PERCENT AUTO 0 % (0-2); EOSINOPHILS ABSOLUTE AUTO 0.33 K/mm3 (0.00-0.68); EOSINOPHILS PERCENT AUTO 3 % (0-6); Hematocrit 36.6 % (37.0-53.0); Hemoglobin 12.1 g/dL (13.5-17.5); IMMATURE GRAN ABSOLUTE AUTO 0.03 K/mm3 (0.00-0.10); IMMATURE GRAN PERCENT AUTO 0 % (0-1); LYMPHOCYTES ABSOLUTE AUTO 1.09 K/mm3 (0.84-5.20); LYMPHOCYTES PERCENT AUTO 11 % (21-46); MONOCYTES ABSOLUTE AUTO 0.75 K/mm3 (0.16-1.47); MONOCYTES PERCENT AUTO 7 % (4-13); Mean Corpuscular HGB 28.3 pg (26.0-34.0); Mean Corpuscular HGB Conc 33.1 g/dL (31.5-36.5); Mean Corpuscular Volume 86 fL (80-100); Mean Platelet Volume 9.1 fL (9.1-12.4); NEUTROPHILS ABSOLUTE AUTO 7.93 K/mm3 (1.96-9.15); NEUTROPHILS PERCENT AUTO 78 % (41-73); Platelet Count 313 K/mm3 (150-400); RDW Coefficient Variation 16.4 % (11.7-14.2); RDW Standard Deviation 51.3 fL (35.1-46.3); Red Blood Cell Count 4.27 M/mm3 (4.30-5.90); White Blood Cell Count 10.16 K/mm3 (4.00-11.30)
[2022-07-21 11:25] LABS: Calcium, Ionized (POC) 1.19 mmol/L (1.10-1.46); Chloride (POC) 99 mmol/L (98-108); Creatinine (POC) 1.1 mg/dL (0.8-1.3); Glucose (ISTAT POC) 170 mg/dL (70-99); Hemoglobin (POC) 12.6 g/dL (13.5-17.5); Potassium (POC) 4.1 mmol/L (3.5-5.5); Sodium (POC) 138 mmol/L (135-148); Total CO2 (POC) 29 mmol/L (21-32)
[2022-07-21 13:54] LABS: Albumin, Blood 3.1 g/dL (3.4-5.0); Albumin/Globulin Ratio 0.6 (0.8-1.8); Bilirubin, Total 0.3 mg/dL (0.1-1.0); Potassium, Blood 4.5 mmol/L (3.5-5.5)
[2022-07-21 14:21] LABS: Globulin, Blood 4.9 g/dL (2.2-4.0)
[2022-07-21 15:06] LABS: Bun/Creatinine Ratio 17.4 (12.0-20.0); Calcium, Blood 9.4 mg/dL (8.5-10.1); Creatinine, Blood 1.21 mg/dL (0.60-1.20)
[2022-07-21] MEDS ORDERED: ATOR40TA PO (17:44)
[2022-07-21] MEDS ORDERED: CALCIUM 600 +1 EA11 PO (17:47)
[2022-07-21] MEDS ORDERED: CLOZ25 PO (17:50)
[2022-07-21] MEDS ORDERED: METO25 PO (17:54)
[2022-07-21] MEDS ORDERED: NYSTRIT TOP (18:00)
[2022-07-21] MEDS ORDERED: POTA10T PO (18:01)
[2022-07-21] MEDS ORDERED: RISP1 PO (18:02)
[2022-07-21] MEDS ORDERED: LOPE2C PO (18:03)
[2022-07-21 19:58] LABS: Influenza A, PCR NEGATIVE (NEGATIVE); Influenza B, PCR NEGATIVE (NEGATIVE); Resp Syncytial Virus, PCR NEGATIVE (NEGATIVE); SARS-Cov-2 (COVID-19) PCR, MMC NEGATIVE (NEGATIVE)
[2022-07-21] MEDS ORDERED: TAMS.4ER PO (21:28)
[2022-07-21] MEDS ORDERED: METO100ER PO (21:30)
[2022-07-21] MEDS ORDERED: HYDHCL25 PO (21:34)
[2022-07-21] MEDS ORDERED: SERT50 PO (21:35)
[2022-07-21] MEDS ORDERED: CATAPRES0.3 MG PO (21:36)
[2022-07-21] MEDS ORDERED: SOAANZ20 M2 PO (21:37)
[2022-07-21] MEDS ORDERED: Lisinopril2.5 MG PO (21:38)
[2022-07-21 23:27] LABS: International Normalized Ratio 2.53
--- NOTE | 2022-07-22 04:56 | NUR ---
SHIFT SUMMARY NOC ADMIT FROM ED FOR CP AND SOB. PT HAD ELEVATED TROPONIN OF 34. STRESS TEST SCHEDULED FOR THIS MORNING. PT RECEIVED 10 MG DOSE OF COUMADIN THAT THEY REGULARLY TAKE AT HOME. PT IS INDEPENDENT IN ROOM. PT IS ON TELE RUNNING AFIB @ 92 BPM. PT DENIES ANY CURRENT CP/DISCOMFORT, BUT DOES REPORT MILD SOB UPON EXERTION. PT IS CURRENTLY RESTING WITH BED IN LOWEST POSITION, AND CALL LIGHT WITHIN REACH.
[2022-07-22 05:35] LABS: BASOPHILS ABSOLUTE AUTO 0.03 K/mm3 (0.00-0.23); BASOPHILS PERCENT AUTO 0 % (0-2); EOSINOPHILS ABSOLUTE AUTO 0.38 K/mm3 (0.00-0.68); EOSINOPHILS PERCENT AUTO 5 % (0-6); Hematocrit 35.8 % (37.0-53.0); Hemoglobin 11.8 g/dL (13.5-17.5); IMMATURE GRAN ABSOLUTE AUTO 0.05 K/mm3 (0.00-0.10); IMMATURE GRAN PERCENT AUTO 1 % (0-1); LYMPHOCYTES ABSOLUTE AUTO 1.29 K/mm3 (0.84-5.20); LYMPHOCYTES PERCENT AUTO 16 % (21-46); MONOCYTES ABSOLUTE AUTO 0.77 K/mm3 (0.16-1.47); MONOCYTES PERCENT AUTO 10 % (4-13); Mean Corpuscular Volume 85 fL (80-100); Mean Platelet Volume 9.1 fL (9.1-12.4); NEUTROPHILS ABSOLUTE AUTO 5.62 K/mm3 (1.96-9.15); NEUTROPHILS PERCENT AUTO 69 % (41-73); Platelet Count 312 K/mm3 (150-400); RDW Coefficient Variation 16.5 % (11.7-14.2); RDW Standard Deviation 50.4 fL (35.1-46.3); Red Blood Cell Count 4.22 M/mm3 (4.30-5.90); White Blood Cell Count 8.14 K/mm3 (4.00-11.30)
[2022-07-22 06:03] LABS: Magnesium, Blood 2.3 mg/dL (1.6-2.4)
[2022-07-22 06:05] LABS: Albumin, Blood 2.9 g/dL (3.4-5.0); Albumin/Globulin Ratio 0.6 (0.8-1.8); Bilirubin, Total 0.5 mg/dL (0.1-1.0); Bun/Creatinine Ratio 19.6 (12.0-20.0); Calcium, Blood 8.9 mg/dL (8.5-10.1); Creatinine, Blood 0.82 mg/dL (0.60-1.20); Globulin, Blood 4.8 g/dL (2.2-4.0); Potassium, Blood 3.8 mmol/L (3.5-5.5); Total Protein, Blood 7.7 g/dL (6.4-8.2)
[2022-07-22 12:11] LABS: International Normalized Ratio 2.42
--- NOTE | 2022-07-22 17:12 | NUR ---
RN NOTIFIED MD SIBLEY OF 1 EPISODE OF TRIGEMINY THIS AM AND 9 EPISODES OF TRIGEMINY SINCE 2PM. MD SIBLEY AWARE.
--- NOTE | 2022-07-22 18:27 | NUR ---
PT HAD 10 EPISODES OF TRIGEMINY THIS SHIFT-MD SIBLEY AWARE. PT AAOX4, CALM AND COOPERATIVE THIS SHIFT. NO ACUTE EVENTS THIS SHIFT.
[2022-07-23 06:22] LABS: International Normalized Ratio 2.65; Prothrombin Time Results 26.1 Sec (9.7-11.5)
[2022-07-23] MEDS ORDERED: AZIT500 PO (16:11)
--- NOTE | 2022-07-23 18:01 | NUR ---
DISCHARGE SUMMARY: PT DISCHARGED HOME TODAY. PT EDUCATED ON DISCHARGE PLAN AND MEDICATIONS. PT VU. PRIOR TO LEAVING PT REQUESTED HE TAKE AZITHROMYCIN INITIAL DOSE SO HE DID NOT HAVE TO GO TO PHARMACY TONIGHT. DR. JOHNSON OK WITH PLAN. PT GIVEN MEDICATION. [facility] CALLED AND NOTIFIED THEY ONLY HAVE TO FILL 2 TABS OF AZITHROMYCIN. PHARMACY REQUESTED CLARIFICATION IF IT IS OKAY FOR PT TO TAKE WITH COUMADIN. PER DR. TOLENTINO PT OK TO TAKE COUMADIN WITH AZITHROMYCIN AND HAVE INR CHECKED WITH PCP APPOINTMENT. PER PT HE HAS STANDING ORDER FOR INR CHECKS AND WILL GO IN ON MONDAY TO GET INR CHECKED. PT ASSISTED WITH PACKING UP BELONGINGS AND ESCORTED TO POV VIA WC.
== END 2022-07-23 17:00 | disposition home or self-care (01) ==
LOC: ER 09:55 → MEDS 18:47
PROVIDERS: Emergency Medicine; Physician Assistant; ADMIT Student in an Organized Health Care Education/Training Program
DX: R07.9 Chest pain, unspecified (principal); I11.0 Hypertensive heart disease with heart failure; I50.32 Chronic diastolic (congestive) heart failure; J44.9 Chronic obstructive pulmonary disease, unspecified; R91.8 Other nonspecific abnormal finding of lung field; G89.29 Other chronic pain; M54.9 Dorsalgia, unspecified; M54.2 Cervicalgia; Z95.4 Presence of other heart-valve replacement; Z88.8 Allergy status to other drugs, medicaments and biological substances; Z88.0 Allergy status to penicillin; Z79.899 Other long term (current) drug therapy; Z79.01 Long term (current) use of anticoagulants; Z87.891 Personal history of nicotine dependence; Z20.822 Contact with and (suspected) exposure to COVID-19
CPT/HCPCS: 0241U; 36415; 71046; 78452; 80047; 80053; 82947; 83690; 83735; 83880; 84484; 85014; 85025; 85610; 93005; 93010; 93017; 94640; 94664; 96372; 99285-25; A9270; A9500; G0378; J0280; J1644; J2785

== ENCOUNTER 2022-11-04 01:50 | Emergency (ER) | payer MEDICARE ==
[~2022-11-04] VITALS: Ht 182.9 cm; Wt 120.2 kg
[~2022-11-04 01:50] MED LIST changes: +ATOR40TA PO; +AZIT500 PO; +CALCIUM 600 +1 EA11 PO; +CLOZ25 PO; +HYDHCL25 PO; +LOPE2C PO; +Lisinopril2.5 MG PO; +METO25 PO; +NYSTRIT TOP; +POTA10T PO; +RISP1 PO; +SERT50 PO; +SOAANZ20 M2 PO; +TAMS.4ER PO
[2022-11-04 02:37] LABS: BASOPHILS ABSOLUTE AUTO 0.04 K/mm3 (0.00-0.23); BASOPHILS PERCENT AUTO 0 % (0-2); EOSINOPHILS ABSOLUTE AUTO 0.26 K/mm3 (0.00-0.68); EOSINOPHILS PERCENT AUTO 3 % (0-6); Hematocrit 34.8 % (37.0-53.0); Hemoglobin 10.9 g/dL (13.5-17.5); IMMATURE GRAN ABSOLUTE AUTO 0.04 K/mm3 (0.00-0.10); IMMATURE GRAN PERCENT AUTO 0 % (0-1); LYMPHOCYTES ABSOLUTE AUTO 1.53 K/mm3 (0.84-5.20); LYMPHOCYTES PERCENT AUTO 15 % (21-46); MONOCYTES ABSOLUTE AUTO 0.88 K/mm3 (0.16-1.47); MONOCYTES PERCENT AUTO 9 % (4-13); Mean Corpuscular HGB 26.5 pg (26.0-34.0); Mean Corpuscular HGB Conc 31.3 g/dL (31.5-36.5); Mean Corpuscular Volume 85 fL (80-100); Mean Platelet Volume 9.2 fL (9.1-12.4); NEUTROPHILS ABSOLUTE AUTO 7.49 K/mm3 (1.96-9.15); NEUTROPHILS PERCENT AUTO 73 % (41-73); Platelet Count 399 K/mm3 (150-400); RDW Coefficient Variation 15.7 % (11.7-14.2); RDW Standard Deviation 47.9 fL (35.1-46.3); Red Blood Cell Count 4.12 M/mm3 (4.30-5.90); White Blood Cell Count 10.24 K/mm3 (4.00-11.30)
[2022-11-04 03:06] LABS: Albumin/Globulin Ratio 0.6 (0.8-1.8); Bilirubin, Total 0.3 mg/dL (0.1-1.0); Bun/Creatinine Ratio 13.3 (12.0-20.0); Calcium, Blood 8.8 mg/dL (8.5-10.1); Creatinine, Blood 1.05 mg/dL (0.60-1.20); Globulin, Blood 5.4 g/dL (2.2-4.0); Potassium, Blood 4.1 mmol/L (3.5-5.5); Total Protein, Blood 8.4 g/dL (6.4-8.2)
[2022-11-04 03:32] LABS: Influenza A, PCR NEGATIVE (NEGATIVE); Influenza B, PCR NEGATIVE (NEGATIVE); Resp Syncytial Virus, PCR NEGATIVE (NEGATIVE); SARS-Cov-2 (COVID-19) PCR, MMC NEGATIVE (NEGATIVE)
[2022-11-04] MEDS ORDERED: METPRE4DP PO (03:50)
[2022-11-04] MEDS ORDERED: AMOCLA875 PO (03:50)
[2022-11-04 04:15] VITALS: BP 145/91
== END 2022-11-04 04:20 | disposition home or self-care (01) ==
LOC: ER 01:50
PROVIDERS: Emergency Medicine
DX: J18.9 Pneumonia, unspecified organism (principal); I11.0 Hypertensive heart disease with heart failure; I50.9 Heart failure, unspecified; Z20.822 Contact with and (suspected) exposure to COVID-19; Z88.0 Allergy status to penicillin; Z88.8 Allergy status to other drugs, medicaments and biological substances; Z79.899 Other long term (current) drug therapy; Z87.891 Personal history of nicotine dependence
CPT/HCPCS: 0241U; 80053; 83605; 83880; 85025; 93005; 93010; 99283-25; A9270; J7512

== ENCOUNTER 2022-11-07 22:37 | Inpatient (IN) | payer MEDICARE ==
[~2022-11-07] VITALS: Ht 185.4 cm; Wt 119.5 kg
[~2022-11-07 22:37] MED LIST changes: +METPRE4DP PO
[2022-11-07 22:55] LABS: Calcium, Ionized (POC) 1.02 mmol/L (1.10-1.46); Chloride (POC) 102 mmol/L (98-108); Glucose (ISTAT POC) 230 mg/dL (70-99); Hemoglobin (POC) 13.6 g/dL (13.5-17.5); Potassium (POC) 3.6 mmol/L (3.5-5.5); Sodium (POC) 140 mmol/L (135-148); Total CO2 (POC) 25 mmol/L (21-32)
[2022-11-07 23:02] LABS: PCO2 Arterial 62.3 mmHg (35-45); PO2 Arterial 148 mmHg (80-100)
[2022-11-07 23:03] LABS: Hematocrit 40.4 % (37.0-53.0); Hemoglobin 12.3 g/dL (13.5-17.5); Mean Corpuscular HGB 26.9 pg (26.0-34.0); Mean Corpuscular HGB Conc 30.4 g/dL (31.5-36.5); Mean Corpuscular Volume 88 fL (80-100); Mean Platelet Volume 9.3 fL (9.1-12.4); NRBC ABSOLUTE 0.02 K/mm3 (0.00-0.02); NRBC Auto 0.1 /100 WBC (0.0-0.2); Platelet Count 509 K/mm3 (150-400); RDW Coefficient Variation 15.8 % (11.7-14.2); Red Blood Cell Count 4.58 M/mm3 (4.30-5.90); White Blood Cell Count 23.27 K/mm3 (4.00-11.30)
[2022-11-07 23:16] LABS: Albumin, Blood 2.9 g/dL (3.4-5.0); Albumin/Globulin Ratio 0.6 (0.8-1.8); Bilirubin, Total 0.3 mg/dL (0.1-1.0); Bun/Creatinine Ratio 17.6 (12.0-20.0); Calcium, Blood 7.9 mg/dL (8.5-10.1); Creatinine, Blood 1.02 mg/dL (0.60-1.20); Magnesium, Blood 2.1 mg/dL (1.6-2.4); Potassium, Blood 3.7 mmol/L (3.5-5.5); Total Protein, Blood 7.9 g/dL (6.4-8.2)
[2022-11-07 23:26] LABS: International Normalized Ratio 3.04
[2022-11-07 23:46] LABS: BAND PERCENT MAN 2 % (0-8); BASOPHILS PERCENT MAN 0 % (0-2); EOSINOPHILS PERCENT MAN 0 % (0-6); LYMPHOCYTES ABSOLUTE MAN 3.25 K/mm3 (0.84-5.20); LYMPHOCYTES PERCENT MAN 14 % (21-46); METAMYELOCYTE ABSOLUTE MAN 0.23 K/mm3 (0.00-0.00); METAMYELOCYTE PERCENT MAN 1 % (0-0); MONOCYTES ABSOLUTE MAN 1.16 K/mm3 (0.16-1.47); MONOCYTES PERCENT MAN 5 % (4-13); MYELOCYTE ABSOLUTE MAN 0.69 K/mm3 (0.00-0.00); MYELOCYTE PERCENT MAN 3 % (0-0); NEUTROPHILS ABSOLUTE MAN 17.91 K/mm3 (1.96-9.15); SEG NEUTROPHILS PERCENT MAN 75 % (41-73); TOTAL CELLS COUNTED 100
[2022-11-08] VITALS (64 sets, daily range): BP systolic 124–199; BP diastolic 65–106
[2022-11-08] MEDS ORDERED: BUPRENORPHINE HC8 MG SL (00:28)
[2022-11-08] MEDS ORDERED: HYDHCL25 PO (00:29)
[2022-11-08] MEDS ORDERED: TRAZ50 PO (00:30)
[2022-11-08] MEDS ORDERED: PANTOPRAZOLE SO40 M2 PO (00:30)
[2022-11-08] MEDS ORDERED: ZOLOFT10013 PO (00:30)
[2022-11-08] MEDS ORDERED: DILTIAZEM 24HR240 M4 PO (00:31)
[2022-11-08] MEDS ORDERED: LISINOPRIL2.5 MG PO (00:31)
[2022-11-08 02:22] LABS: Hematocrit 38.2 % (37.0-53.0); Hemoglobin 11.7 g/dL (13.5-17.5); Mean Corpuscular HGB 26.7 pg (26.0-34.0); Mean Corpuscular HGB Conc 30.6 g/dL (31.5-36.5); Mean Corpuscular Volume 87 fL (80-100); Mean Platelet Volume 9.2 fL (9.1-12.4); Platelet Count 511 K/mm3 (150-400); RDW Coefficient Variation 15.8 % (11.7-14.2); RDW Standard Deviation 50.2 fL (35.1-46.3); Red Blood Cell Count 4.38 M/mm3 (4.30-5.90); White Blood Cell Count 32.23 K/mm3 (4.00-11.30)
[2022-11-08 02:46] LABS: BAND PERCENT MAN 6 % (0-8); BASOPHILS PERCENT MAN 0 % (0-2); EOSINOPHILS PERCENT MAN 0 % (0-6); LYMPHOCYTES ABSOLUTE MAN 1.61 K/mm3 (0.84-5.20); LYMPHOCYTES PERCENT MAN 5 % (21-46); METAMYELOCYTE ABSOLUTE MAN 0.32 K/mm3 (0.00-0.00); METAMYELOCYTE PERCENT MAN 1 % (0-0); MONOCYTES ABSOLUTE MAN 1.61 K/mm3 (0.16-1.47); MONOCYTES PERCENT MAN 5 % (4-13); MYELOCYTE ABSOLUTE MAN 0.32 K/mm3 (0.00-0.00); MYELOCYTE PERCENT MAN 1 % (0-0); NEUTROPHILS ABSOLUTE MAN 28.36 K/mm3 (1.96-9.15); SEG NEUTROPHILS PERCENT MAN 82 % (41-73); TOTAL CELLS COUNTED 100
[2022-11-08 02:53] LABS: Albumin/Globulin Ratio 0.6 (0.8-1.8); Bilirubin, Total 0.3 mg/dL (0.1-1.0); Bun/Creatinine Ratio 19.2 (12.0-20.0); Calcium, Blood 7.8 mg/dL (8.5-10.1); Creatinine, Blood 1.04 mg/dL (0.60-1.20); Globulin, Blood 4.8 g/dL (2.2-4.0); Total Protein, Blood 7.8 g/dL (6.4-8.2)
--- NOTE | 2022-11-08 04:30 | NUR ---
IO TO RIGHT LEG REMOVED AND PRESSURE DRESSING PLACED OVER SITE.
[2022-11-08 04:41] LABS: Anti-Xa UFH, PHA Monitoring <0.10 IU/mL
--- NOTE | 2022-11-08 06:00 | NUR ---
AT 0222 PATIENT ARRIVED TO ICU 6 VIA GURNEY FROM ED WITH RT AND TRAVEL VENT. PATIENT TRANSFER TO ICU BED WITH SLIDER SHEET AND PLACED ON ICU MONITORS. PATIENT PLACED ON VENT BY RT. PATIENT HAVING RHYTHMIC SHOULDER MOVEMENT AND HIGH PRESSURING VENT, PUPILS EQUIL AND SLUGGISH WITH EYES ROVING SLOWLY FROM SIDE TO SIDE. ATIVAN 2 MG IV GIVEN WITH QUICK RELIEF OF SEIZURE LIKE ACTIVITY. ABLE TO SUCTION LARGE AMT OF BLOODY ORAL AND ETT SECRETIONS. OG PLACED TO LIS WITH SMALL AMT OF LIGHT BROWN BILE IN TUBE. FAMILY TO ROOM PROVIDING THERAPEUTIC CONVERSATION, DOCTOR SUBHASH TO ROOM ALSO PROVIDING ANSWERS TO FAMILY. PROPOFOL 30 MCG ON ARRIVAL TO ICU. APROX 0300 HEART RATE DOWN TO 50'S PROPOFOL TITRATED DOWN TO 25 MCG. CONTINUES TO HAVE NO MOVEMENT IN ARMS AND SLIGHT MOVEMENT SEEN IN RIGHT LEG WITH STIMULI. EYES NO LONGER ROVING AND PUPILS EQUIL AND REACTIVE. PROPOFOL TITRATED BACK UP TO 30 MCG DUE TO RESP DESYNCHRONIZED WITH VENT, RESP LESS LABORED WITH INCREASED PROPOFOL. VENT SETTINGS REMAIN UNCHANGESED ACVC 16, TV 400, PEEP 5, FIO2 50%
--- NOTE | 2022-11-08 09:28 | NUR ---
ASSUMED CARE REPORT FROM [facility] CHILDERS AT 0700. PT INTUBATED AND SEDATED. VENT SETTINGS AC/VC 16/400/5/45%. LUNGS COARSE, MODERATE THICK GONGORA SECRETIONS FROM ETT. PROPOFOL GTT INFUSING FOR SEDATION, RASS -4. DOES NOT FOLLOW COMMANDS, NO PURPOSEFUL MOVEMENT. COUGH/GAG/SWALLOW REFLEX PRESENT. MOVEMENT NOTED TO BUE. SR ON MONITOR, EKG DONE. DR HOPPER ROUNDED THIS AM. HEPARIN AND AMIODARONE GTT D/C'D. PLAN FOR ECHO THIS SHIFT. OGT CLAMPED AFTER MED ADMINSTRATION. LOW PATENT, DRAINING CLEAR YELLOW URINE TO GRAVITY. FAN AND ICE PACKS APPLIED TO KEEP PT NORMOTHERMIC. WILL CONTINUE TO MONITOR.
--- NOTE | 2022-11-08 17:33 | NUR ---
SHIFT SUMMARY PT REMAINS INTUBATED AND SEDATED. VENT SETTINGS UNCHANGED, AC/VC 16/450/5/35%. LUNGS CLEAR, DIM IN BASES. SMALL THICK GONGORA SECRETIONS FROM ETT, SPUTUM SENT TO LAB. PT HAD TWO EPISODES OF EMESIS THIS SHIFT. TUBE FEEDS STOPPED, PLACED OGT TO LIS. ADVANCED OGT 10 CM. ATTEMPTED SEDATION VACATION, RESTARTED SEDATION D/T NON COMPLIANCE c VENT AND EMESIS. PROPOFOL GTT INFUSING AT 20 MCG/KG/MIN. COUGH/GAG/SWALLOW. OCCASIONALLY BREATHS OVER VENT. DOES NOT FOLLOW COMMANDS. GRIMACES TO PAINFUL STIMULI. SPONT MOVEMENT TO BUE, NOT PURPOSEFUL. ABD ROUND, SOFT, NON TENDER. HYPOACTIVE BT. SR ON MONITOR, RATE 60-70'S. MEDICATED FOR HTN, STABLE AT THIS TIME. TEMP TRENDING DOWN, TMAX 101.0. ICE AND FANS APPLIED. LOW PATENT, DRAINING CLEAR YELLOW URINE TO GRAVITY. ECHO COMPLETE THIS SHIFT. SPOUSE AND DAUGHTER AT BEDSIDE, UPDATED. WILL CONTINUE TO MONITOR UNTIL REPORT TO ONCOMING NURSE.
[2022-11-08 18:18] LABS: Hematocrit 35.9 % (37.0-53.0); Hemoglobin 11.3 g/dL (13.5-17.5); Mean Corpuscular HGB 27.2 pg (26.0-34.0); Mean Corpuscular HGB Conc 31.5 g/dL (31.5-36.5); Mean Corpuscular Volume 86 fL (80-100); Mean Platelet Volume 9.6 fL (9.1-12.4); NRBC ABSOLUTE 0.02 K/mm3 (0.00-0.02); NRBC Auto 0.1 /100 WBC (0.0-0.2); Platelet Count 409 K/mm3 (150-400); RDW Standard Deviation 50.4 fL (35.1-46.3); Red Blood Cell Count 4.16 M/mm3 (4.30-5.90); White Blood Cell Count 24.12 K/mm3 (4.00-11.30)
--- NOTE | 2022-11-08 18:33 | NUR ---
CODE BLUE V FIB ON MONITOR AT 1801, NO PALPABLE PULSE, CODE CALLED, CPR STARTED, PADS PLACED, SHOCKED AT 1804, RESUMED CPR, UNDERLYING RHYTHM AT 1805, PULSE PAL, RATE 70'S. LABS DRAWN, CARDIOLOGY CALLED. DR MIDDLETON NOTIFIED.
[2022-11-08 18:38] LABS: Albumin, Blood 2.8 g/dL (3.4-5.0); Albumin/Globulin Ratio 0.6 (0.8-1.8); Bilirubin, Total 0.4 mg/dL (0.1-1.0); Bun/Creatinine Ratio 21.6 (12.0-20.0); Calcium, Blood 8.4 mg/dL (8.5-10.1); Creatinine, Blood 0.97 mg/dL (0.60-1.20); Globulin, Blood 4.7 g/dL (2.2-4.0); Magnesium, Blood 2.1 mg/dL (1.6-2.4); Potassium, Blood 3.9 mmol/L (3.5-5.5); Total Protein, Blood 7.5 g/dL (6.4-8.2)
--- NOTE | 2022-11-08 18:44 | NUR ---
"Spiritual Care | Code Blue Response Pt. had coded in ICU6, and within 3 minutes was medically stablized. Family (Spouse and Daughter) were present in the room when the Code happened and when this weed sprayer arrived, they welcomed my visit. Both Spouse and Daughter displayed evidence of emotional trauma, and quickly requested prayer. Prayed with the family and with empathy and a calming presence facilitated a life review as the nursing staff ran EKGs and prepared for a chest Xray. Helped family exit the room and assisted in their return to ICU to meet with Dr. Olivas. Spouse and Daughter both verbalized grattiude for the spiritual care visit. Will remain available to the family."
[2022-11-08 18:50] LABS: BAND PERCENT MAN 1 % (0-8); BASOPHILS PERCENT MAN 0 % (0-2); EOSINOPHILS PERCENT MAN 0 % (0-6); LYMPHOCYTES ABSOLUTE MAN 2.17 K/mm3 (0.84-5.20); LYMPHOCYTES PERCENT MAN 9 % (21-46); MONOCYTES ABSOLUTE MAN 1.68 K/mm3 (0.16-1.47); MONOCYTES PERCENT MAN 7 % (4-13); MYELOCYTE ABSOLUTE MAN 0.24 K/mm3 (0.00-0.00); MYELOCYTE PERCENT MAN 1 % (0-0); NEUTROPHILS ABSOLUTE MAN 20.01 K/mm3 (1.96-9.15); SEG NEUTROPHILS PERCENT MAN 82 % (41-73); TOTAL CELLS COUNTED 100
--- NOTE | 2022-11-08 18:55 | NUR ---
UPDATE DR ANDERSON AT BEDSIDE. DISCUSSED CARE PLAN c FAMILY. PLAN FOR AMIODARONE AND REASSESS NEURO. FAMILY WISHES TO CONTINUE FULL CODE. SR, RATE 60'S. BP STABLE. AMIO BOLUS AND INFUSING STARTED.
--- NOTE | 2022-11-08 19:00 | NUR ---
ASSUMED CARE ASSUMED CARE OF PATIENT. REMAINS INTUBATED- AC/VC 16, TV 450, PEEP 5, FIO2 35%. SEDATED WITH PROPOFOL AT 40MCG/KG/MIN. NO SPONTANEOUS MOVEMENT NOTED AT THIS TIME. PT WITHDRAWS ALL EXTREMITIES TO NOXIOUS STIMULI. MONITOR SHOWS SB, RATE 50s. BP STABLE. TEMP 100.4F PER LOW TEMP PROBE. AMIODARONE INFUSING AT 1MG/MIN. OG TO LIS WITH SCANT BROWN DRAINAGE. LOW PATENT AND DRAINING TO GRAVITY. FAMILY AT BEDSIDE. SEE SHIFT ASSESSMENT FOR FULL ASSESSMENT.
[2022-11-08 19:14] LABS: Base Excess Venous 4.2 mmol/L; Bicarbonate Venous 27.3 mmol/L (24.0-30.0); PCO2 Venous 50.9 mmHg (38-42); pH Blood Venous 7.37 (7.34-7.37)
--- NOTE | 2022-11-08 19:42 | NUR ---
pt post cardiac event having emesis today and increased GI output. at bedside. She did CPR on him very traumatized kept repeating the event. She has not slept. Mostly supportive visit. Advised her aI will help her with care planning. She cannot consider DNR at this point. She feels he has a chance. Pt had event this afternoon had a brief repeat recusitation. pt and daughter were in the room. Very very distraught. Cahplian in for support. Dr veliz to speak with them on care needs and prognosis. Will follow up.
[2022-11-08 20:38] LABS: Source, Urine Foley catheter
[2022-11-08 20:50] LABS: Bilirubin, Urine Neg (Neg); Blood, Urine 2+ (Neg); Glucose Qualitative, Urine Neg (Neg); Ketones, Urine Neg (Neg); Leukocyte Esterase, Urine 1+ (Neg); Nitrite, Urine Neg (Neg); Protein, Urine 1+ (Neg); Specific Gravity, Urine 1.015 (1.003-1.022); Urobilinogen, Urine NORM (Normal)
[2022-11-08 21:02] LABS: Appearance, Urine Clear (Clear); Color, Urine Yellow (P-Yellow)
[2022-11-08 21:04] LABS: Bacteria Not Seen /hpf; Squamous Epithelial Cells Not Seen /hpf (Few); White Blood Cells, Urine 0-2 /hpf (0-5)
[2022-11-08 21:06] LABS: U Amphetamine Screen Not Detected; U Barbituate Screen Not Detected; U Benzodiazapine Screen DETECTED; U Buprenorphine Screen DETECTED; U Cannabinoids Screen DETECTED; U Cocaine Screen Not Detected; U Methadone Screen Not Detected; U Methamphetamine Screen Not Detected; U Opiates Screen Not Detected; U Oxycodone Screen Not Detected; U Phencyclidine Screen Not Detected; U Propoxyphene Screen Not Detected
[2022-11-09] VITALS (91 sets, daily range): BP systolic 120–191; BP diastolic 50–159
[2022-11-09 03:19] LABS: BASOPHILS ABSOLUTE AUTO 0.02 K/mm3 (0.00-0.23); BASOPHILS PERCENT AUTO 0 % (0-2); EOSINOPHILS ABSOLUTE AUTO 0.02 K/mm3 (0.00-0.68); EOSINOPHILS PERCENT AUTO 0 % (0-6); Hematocrit 32.7 % (37.0-53.0); Hemoglobin 10.1 g/dL (13.5-17.5); IMMATURE GRAN ABSOLUTE AUTO 0.13 K/mm3 (0.00-0.10); IMMATURE GRAN PERCENT AUTO 1 % (0-1); LYMPHOCYTES ABSOLUTE AUTO 1.55 K/mm3 (0.84-5.20); LYMPHOCYTES PERCENT AUTO 9 % (21-46); MONOCYTES ABSOLUTE AUTO 1.52 K/mm3 (0.16-1.47); MONOCYTES PERCENT AUTO 9 % (4-13); Mean Corpuscular HGB 26.7 pg (26.0-34.0); Mean Corpuscular HGB Conc 30.9 g/dL (31.5-36.5); Mean Corpuscular Volume 87 fL (80-100); Mean Platelet Volume 9.5 fL (9.1-12.4); NEUTROPHILS ABSOLUTE AUTO 13.61 K/mm3 (1.96-9.15); NEUTROPHILS PERCENT AUTO 81 % (41-73); Platelet Count 303 K/mm3 (150-400); RDW Standard Deviation 50.6 fL (35.1-46.3); Red Blood Cell Count 3.78 M/mm3 (4.30-5.90); White Blood Cell Count 16.85 K/mm3 (4.00-11.30)
[2022-11-09 03:33] LABS: International Normalized Ratio 2.46; Prothrombin Time Results 24.5 Sec (9.7-11.5)
[2022-11-09 03:38] LABS: Bun/Creatinine Ratio 27.1 (12.0-20.0); Calcium, Blood 8.2 mg/dL (8.5-10.1); Creatinine, Blood 0.74 mg/dL (0.60-1.20); Magnesium, Blood 2.1 mg/dL (1.6-2.4); Phosphorus, Blood 2.7 mg/dL (2.5-4.9); Potassium, Blood 3.7 mmol/L (3.5-5.5)
[2022-11-09 04:01] LABS: PCO2 Arterial 51.2 mmHg (35-45); PO2 Arterial 79.4 mmHg (80-100)
--- NOTE | 2022-11-09 05:59 | NUR ---
SHIFT SUMMARY NO ACUTE CHANGES DURING NOC. REMAINS INTUBATED- AC/VC 16, TV 450, PEEP 5, FIO2 40%. SEDATED WITH PROPOFOL AT 40MCG/KG/MIN. NO SPONTANEOUS MOVEMENT NOTED. WITHDRAWS ALL EXTREMITIES TO NOXIOUS STIMULI. RICARDO, 3MM. COUGH AND GAG NOTED. MEDICATED WITH FENTANYL 50MCG IV X 1 FOR SEDATION ADJUNCT. MONITOR SHOWS SB, RATE 40s-50s. BP STABLE. AMIODARONE NOW INFUSING AT 0.5MG/MIN PER ORDER. OG TO LIS WITH SCANT BROWN DRAINAGE. LOW PATENT, DRAINING TO GRAVITY. WILL REPORT TO ONCOMING RN WHEN AVAILABLE.
--- NOTE | 2022-11-09 08:00 | NUR ---
INITIAL ASSESSMENT PATIENT INTUBATED AND ON SEDATION. PATIENT RESPONDING TO NOXIOUS STIMULI WITH SLIGHT MOVEMENT OF HANDS AND FEET AND GRIMACING OF FACE. NO PURPOSEFUL MOVEMENTS NOTED AND NO FOLLOWING OF COMMANDS AT THIS TIME. + COUGH AND GAG NOTED. CORNEAL REFLEX NOTED. PATIENT HAS TEMP OF 99.9 DEGREES FAHRENHEIT. PATIENT ON ACVC 16, TV 450, PEEP 5 AND 40% FIO2. PATIENT HAS OCCASIONAL COUGH. SMALL TO MODERATE AMOUNT OF THICK, MAROON SPUTUM BEING SUCTIONED FROM ETT. PATIENT IN SB, HR 40S TO 50S. SBP IN THE 130S. 1+ EDEMA NOTED TO BLES. SCDS IN PLACE. OG IN PLACE TO LIS- 50 MLS OUT ON HYDROMETER CALIBRATOR PER REPORT. NO BM SINCE ADMISSION. SKIN PALE. ABRASION NOTED TO L FOREHEAD. SCRATCHES FROM DOG NOTED TO ARMPIT AND CHEST. SCATTERED SCABS AND BRUISES NOTED. PROPOFOL INFUSING AT 40 MCG/ KG/ MINUTE AND AMIODARONE INFUSING AT 0.5 MG/ MINUTE. BED LOW, CALL LIGHT IN REACH. WILL CONTINUE TO MONITOR PATIENT FREQUENTLY THROUGHOUT SHIFT.
--- NOTE | 2022-11-09 10:29 | NUR ---
TF RESTARTED AT GOAL RATE PER DR. MIDDLETON. WILL CONTINUE TO MONITOR.
--- NOTE | 2022-11-09 12:25 | NUR ---
Spiritual Care Visit. Pt. is intubated and resting. Spouse and Daughter are present and welcome my visit. Facilitate a more lengthy lie review focusing on matters of richard and belief. Listen with interest and empathy. Family display evidence of trust and engagement. Spouse was concerned about what kind of trauma support she might be able to receive. Considered opportunities for ongoing theraputic support. ICU nurse Aster arrived to care for the Pt. Family verbalized gratitude for the spiritual care visit.
--- NOTE | 2022-11-09 12:30 | NUR ---
PATIENT HAS TEMP OF 101.0 DEGREES FAHRENHEIT. COOLING BLANKET ON PATIENT. FAN ON PATIENT. PATIENT GIVEN PRN TYLENOL. PROPOFOL AT 30 MCG/ KG/ MINUTE. PATIENT REMAINS ON SAME VENT SETTINGS. HR IN THE 40S. SBP 140S TO 150S. BLOOD SUGAR 165. FAMILY IN ROOM. WILL CONTINUE TO MONITOR.
[2022-11-09] MEDS ORDERED: AZIT500 PO (15:31)
[2022-11-09] MEDS ORDERED: AMOX-CLAV 875-1 EAC5 PO (15:32)
[2022-11-09] MEDS ORDERED: MONT10T PO (15:36)
[2022-11-09] MEDS ORDERED: TIOT18 INH (15:37)
[2022-11-09] MEDS ORDERED: METPRE4DP PO (15:38)
--- NOTE | 2022-11-09 16:00 | NUR ---
PATIENT HAS TEMP OF 100.9 DEGREES FAHRENHEIT. HR 40S TO 50S. SBP IN THE 140S. PATIENT REMAINS ON SAME VENT SETTINGS. PROPOFOL REMAINS AT 40 MCG/ KG/ MINUTE. NO OTHER ACUTE CHANGES TO NOTE ON AT THIS TIME. WILL CONTINUE TO MONITOR.
--- NOTE | 2022-11-09 18:29 | NUR ---
SHIFT SUMMARY PATIENT REMAINED INTUBATED. PATIENT REMAINED ON SEDATION EXCEPT FOR SHORT SEDATION VACATION THIS AM. PATIENT PLACED BACK ON SEDATION FOR INCREASED AGITATION AND HYPERTENSION WITH SBP UP INTO THE 190S. PATIENT REMAINED RESPONDING TO NOXIOUS STIMULI. NO PURPOSEFUL MOVEMENTS NOTED, NOT FOLLOWING COMMANDS. PATIENT NOT TRACKING NURSE WHEN EYES OPENED DURING SEDATION VACATION. PATIENT HAD TMAX OF 101.1 DEGREES FAHRENHEIT THIS SHIFT. PATIENT GIVEN PRN TYLENOL X 2 FOR FEVER. WANTS TO KEEP PATIENT 98.6 DEGREES FAHRENHEIT OR LESS. PATIENT GIVEN PRN FENTANYL A FEW TIMES FOR SIGNS OF PAIN. PATIENT TAKES SUBOXONE AT HOME PER FAMILY REPORT. LUNGS REMAIN COARSE. MODERATE AMOUNT OF THICK, MAROON SPUTUM BEING SUCTIONED THROUGH ETT. PATIENT REMAINS ON ACVC 16, TV 450, PEEP 5 AND 40% FIO2. PATIENT SB TO SR, HR 40S TO 70S. SBP 120S TO 190S. TF RESTARTED AT GOAL RATE THIS SHIFT. NO BM THIS SHIFT. 950 MLS OF GABRIELA COLORED URINE OUT THIS SHIFT FROM LOW. NO CHANGES TO SKIN NOTED. PATIENT REPOSITIONED Q2H. PROPOFOL CURRENTLY AT 40 MCG/ KG/ MINUTE. AMIODARONE INFUSING AT 0.5 MG/ MINUTE; TO BE STOPPED AT 1900. MED REC COMPLETED THIS SHIFT. AND DAUGHTER IN AND OUT VISITING THROUGHOUT DAY. PATIENT APPEARS WITHOUT PAIN OR DISCOMFORT AT THIS TIME. BED LOW, CALL LIGHT IN REACH. REPORT WILL BE GIVEN TO ASSUMING LIME BURNER NURSE SHORTLY.
--- NOTE | 2022-11-09 19:36 | NUR ---
DR HOPPER CALLED FOR PT UPDATE. INFORMED HIM THAT AMIODORONE INFUSION WAS COMPLETE. TELEPHONE ORDER GIVEN FOR AMIODORONE PER TUBE.
--- NOTE | 2022-11-09 22:53 | NUR ---
PT HAS BECOME TACHYPNIC WITH INCREASED WORK OF BREATHING, INCREASE IN HR AND BP DESPITE AN INCREASE IN PROPOFOL AND PRN MEDICATIONS GIVEN. DR MIDDLETON NOTIFIED. ORDERS GIVEN FOR INCREASE IN SEDATION. SEE EMAR
[2022-11-10] VITALS (87 sets, daily range): BP systolic 107–212; BP diastolic 45–103
[2022-11-10 03:30] LABS: BASOPHILS ABSOLUTE AUTO 0.03 K/mm3 (0.00-0.23); BASOPHILS PERCENT AUTO 0 % (0-2); EOSINOPHILS ABSOLUTE AUTO 0.13 K/mm3 (0.00-0.68); EOSINOPHILS PERCENT AUTO 1 % (0-6); Hematocrit 30.7 % (37.0-53.0); Hemoglobin 9.6 g/dL (13.5-17.5); IMMATURE GRAN ABSOLUTE AUTO 0.14 K/mm3 (0.00-0.10); IMMATURE GRAN PERCENT AUTO 1 % (0-1); LYMPHOCYTES ABSOLUTE AUTO 1.22 K/mm3 (0.84-5.20); LYMPHOCYTES PERCENT AUTO 7 % (21-46); MONOCYTES ABSOLUTE AUTO 1.57 K/mm3 (0.16-1.47); MONOCYTES PERCENT AUTO 9 % (4-13); Mean Corpuscular HGB 26.9 pg (26.0-34.0); Mean Corpuscular HGB Conc 31.3 g/dL (31.5-36.5); Mean Corpuscular Volume 86 fL (80-100); Mean Platelet Volume 9.6 fL (9.1-12.4); NEUTROPHILS ABSOLUTE AUTO 14.31 K/mm3 (1.96-9.15); NEUTROPHILS PERCENT AUTO 82 % (41-73); Platelet Count 290 K/mm3 (150-400); RDW Coefficient Variation 16.2 % (11.7-14.2); RDW Standard Deviation 51.2 fL (35.1-46.3); Red Blood Cell Count 3.57 M/mm3 (4.30-5.90)
[2022-11-10 03:48] LABS: International Normalized Ratio 1.57; Prothrombin Time Results 16.1 Sec (9.7-11.5)
[2022-11-10 03:49] LABS: Bun/Creatinine Ratio 31.3 (12.0-20.0); Calcium, Blood 8.1 mg/dL (8.5-10.1); Creatinine, Blood 0.74 mg/dL (0.60-1.20); Phosphorus, Blood 2.5 mg/dL (2.5-4.9); Potassium, Blood 3.7 mmol/L (3.5-5.5)
--- NOTE | 2022-11-10 06:24 | NUR ---
SHIFT SUMMERY PT BECAME MORE COMPLIANT W/THE VENT W/THE NEW ORDERS EARLIER IN THE SHIFT. PT IS SINUS [place] ON THE QC ANALYST, BP WNL. PROPOFOL GTT FOR SEDATION W/PRN FENTANYL AND ATIVAN PRN WELL. PRECEDEX IS AVAILABLE IF NEEDED. PT HAS COOLING BLANKET FOR FEVER AND WAS GIVEN TYLENOL PER TUBE WELL. PT IS INTUBATED VIA ETT W/OXYGEN SAT 95% AT THIS TIME.
--- NOTE | 2022-11-10 07:19 | NUR ---
Assumed care of pt at 0700. Report received from [facility] CHILDERS. Pt sedated with propofol at 60 mcg/kg/min. RASS -4. 8.0 cm ETT at expected location of 25 cm at teeth. Ventilator settings ACVC 16/450/5/40%. SpO2 97%. ETCO2 39. Cooling blanket on patient, temp 100.5 per temp gipson. Heparin drip started per new orders of Dr Baires.
--- NOTE | 2022-11-10 09:44 | NUR ---
Ice packs added to bilateral axilla and groin due to increasing temperature despite cooling blanket. Pt also received one dose of fentanyl due to high peak pressures that were impairing ventilation.
--- NOTE | 2022-11-10 11:22 | NUR ---
Pt's spouse and daughter at bedside. Updates provided by this RN and Dr Leo.
--- NOTE | 2022-11-10 14:40 | NUR ---
Pt had sedation interruption for approx 3 hours. During this time, noted pt had cough, gag, corneal, oculocephalic reflexes. Pupils equal, brisk response to light. Does not withdraw extremities to painful stimulus, but grimaces with application of pain or pressure. Did not open eyes spontaneously. Did not follow commands or demonstrate purposeful movement. Sedation restarted for head CT, resumed at previous dose of 60 mcg/kg/min as patient was fighting ventilator to extent that it was no longer ventilating. On receiving results of head CT, attempted to resume sedation interruption however pt did not tolerate at all. Peak pressures 45 cm H20 consistently despite reducing external stimulus and changing position to one that may be more comfortable. Suctioned copious amounts of tenacious sierra sputum, but this did not fix peak pressures. RT Jules changed ventilator to VC+ and gave one time dose breathing tx. Call placed to Dr Leo to update and provider stated to resume sedation for today.
--- NOTE | 2022-11-10 15:20 | NUR ---
Review of patient in rounds. He is on sedation break. in therputic time with her she is still shell shocked. Reviewed weaning with her. the volunteer in in today sent her to spend time with pt . She opened up to our volunteer about her stress. The volunteer gave her a copy of the book hard chloices for loving families she is considering making him a DNR.
--- NOTE | 2022-11-10 15:26 | NUR ---
Spiritual Care Visit. Pt. is intubated and under sedation and is not responsive. Spouse is present and welcomes my visit. Spouse is pleasant and I intitiated an extensive life review. Rapport is established and spouse displays evidence of being aware and engaged as supportive care. Daughter arrived and updates were given. Both Spouse and daughter display evidence of trust in the process of Pts. recovery. Spouse and daughter both verbalize gratitude for the spiritual care visit.
--- NOTE | 2022-11-10 17:48 | NUR ---
SUMMARY Neuro: Currently sedated with propofol at 50 mcg/kg/min. Sedation interruption performed for approx 3 hours today. At that time, pt had equal pupils with brisk reaction to light. Also had cough, gag, corneal, oculocephalic reflexes. Grimaced with application of painful stimulus, however did not withdraw extremities with nail bed pressure. Pt never followed commands or demonstrated purposeful movement. No spontaneous eye moving. Pt intermittently yawned; he would simultaneously shrug his shoulders- this is the most extremity movement noted today. No babinski reflex. Head CT done and family notified of results. Tmax 101.6. Currently 99.9. Remains on cooling blanket. Resp: 8.0 cm ETT remains at expected location of 25 cm at teeth. Vent settings ACVC+ 16/450/5/40%. Currently SpO2 is 96% and ETCO2 is 38. Coarse lung sounds. One breathing tx done today for high peak pressures (40-45cm H20) accompanied with wheezes. High peak pressures seem to only be alleviated by increasing sedation. Currently peak pressure is 26 cm H20. Pt has had copious amounts of tenacious sierra sputum. ABX changed by Dr Leo from doxycycline and rocephin to meropenem based on results of sputum cx. Cardiac: Heparin drip started by cardiology, currently at 17 mcg/kg/hr. SB to SR per monitor, dependent on sedation. BP stable, typically hypertensive when sedation has been removed. No edema. Color, pulses, capillary refill equal BUE/BLE. GI: No changes made to tube feed rate or formula today. VHP remains at 35 mL/hr with 30 mL water flush Q4H. No BM this shift. Started bowel care today; no BM since admit. ABD moderately distended with hypoactive BT. No signs of tenderness with palpation. : Excellent output of kelsea urine. Varma care completed. Skin: Unchanged from initial assessment. Psychosocial: Pt's partner and daughter at bedside today. Updated by this RN and Dr Leo.
--- NOTE | 2022-11-10 21:47 | NUR ---
ASSUMED CARE AT 1900 PT LAYING IN BED INTUBATED WITH VENT SETTINGS AC/VC+ 16/450/5/40%; LARGE AMOUNTS OF THICK/TENACIOUS SPUTUM FROM ETT; RT IN TO LAVAGE ETT. PT SEDATED WITH PROPOFOL INFUSING AT 50MCG/KG/MIN (SEE FLOWSHEET FOR TITRATIONS); NO RESPONSE TO VERBAL STIMULI; GRIMICES DURING PAINFUL STIMULI AND ORAL CARE; PRN ATIVAN AND FENATNYL AVAILABLE FOR ADJUNCT TO SEDATION; NEGATIVE DOLLS EYES. TEMP 99.6. NSR WITH RATE 50'S. SBP 110'S. VHP INFUSING VIA OG AT 35ML/HR (GOAL) WITH 30ML WATER FLUSHES Q4HR; NO BM SINCE ADMIT; MOM GIVEN WITH PM MEDS. LOW IN PLACE AND DRAINING TO GRAVITY. ABRASIONS TO LT FOREHEAD AND LT AXILLARY NOTED. HEPARIN INFUSING AT 17KG/UNIT/HR. SEE SHIFT ASSESSMENT FOR FULL ASSESSMENT. AFTER REPOSITIONING PT, ATTEMPTED TO TITRATE PROPOFOL 40MCG/KG/MIN, 15 MIN LATER PT BECAME TACHYPNIC RR HIGH 30'S; HR 70'S; SBP 170'S; TEMP UP TO 100.7; END TIDAL CO2 40'S, AND PEAK PREASSURE ALARMING ON VENT. PROPOFOL TITRATED BACK UP, EVENTUALLY TO 60MCG/KG/MIN; FENTANYL GIVEN, ATIVAN GIVEN; REPOSITIONED PT BACK TO ORIGINAL POSITION; AND SUCTIONED PT. 45 MIN AFTER INTERVENTIONS PT RR BACK DOWN TO THE HIGH TEENS, HR 50'S, SBP 120'S.
[2022-11-11] VITALS (92 sets, daily range): BP systolic 120–187; BP diastolic 51–114
[2022-11-11 03:47] LABS: BASOPHILS ABSOLUTE AUTO 0.03 K/mm3 (0.00-0.23); BASOPHILS PERCENT AUTO 0 % (0-2); EOSINOPHILS ABSOLUTE AUTO 0.19 K/mm3 (0.00-0.68); EOSINOPHILS PERCENT AUTO 1 % (0-6); Hematocrit 30.2 % (37.0-53.0); Hemoglobin 9.4 g/dL (13.5-17.5); IMMATURE GRAN ABSOLUTE AUTO 0.13 K/mm3 (0.00-0.10); IMMATURE GRAN PERCENT AUTO 1 % (0-1); LYMPHOCYTES ABSOLUTE AUTO 1.16 K/mm3 (0.84-5.20); LYMPHOCYTES PERCENT AUTO 8 % (21-46); MONOCYTES ABSOLUTE AUTO 1.24 K/mm3 (0.16-1.47); MONOCYTES PERCENT AUTO 8 % (4-13); Mean Corpuscular HGB 26.6 pg (26.0-34.0); Mean Corpuscular HGB Conc 31.1 g/dL (31.5-36.5); Mean Corpuscular Volume 85 fL (80-100); Mean Platelet Volume 10.2 fL (9.1-12.4); NEUTROPHILS ABSOLUTE AUTO 11.96 K/mm3 (1.96-9.15); NEUTROPHILS PERCENT AUTO 81 % (41-73); Platelet Count 278 K/mm3 (150-400); RDW Coefficient Variation 16.2 % (11.7-14.2); RDW Standard Deviation 50.4 fL (35.1-46.3); Red Blood Cell Count 3.54 M/mm3 (4.30-5.90); White Blood Cell Count 14.71 K/mm3 (4.00-11.30)
[2022-11-11 04:09] LABS: Calcium, Blood 8.2 mg/dL (8.5-10.1); Creatinine, Blood 0.63 mg/dL (0.60-1.20); Potassium, Blood 3.7 mmol/L (3.5-5.5)
--- NOTE | 2022-11-11 05:39 | NUR ---
END OF SHIFT SUMMARY NO ACUTE EVENTS OVERNIGHT. SEDATIONS HAS BEEN CHALLENGING, PROPOFOL TITRATED ANYWHERE FROM 40-60MCG/KG/MIN. AFTER REPOSITIONING ON THE LT SIDE FOLLOWING PT BED BATH, PT BECAME TACYPNIC, USING ACCESSORY MUSCLES, HR UP TO 70'S, AND RR IN HIGH 30'S-LOW 40'S; PRN ATIVAN AND FENTANYL GIVEN; PROPOFOL TITRATED UP TO 60MCG/KG/MIN, THIS HELPED DECREASE RR AND ACCESSORY MUSCLES USE AND RETURN VITALS TO PREVIOUS. CONT TO NOT FOLLOW DIRECTIONS, GRIMICING NOTED WITH ORAL CARE; GAG AND COUGH PRESENT. MAX TEMP 101.1; COOLING BLANKET IN PLACE. VENT SETTINGS AC/VC+ 16/450/5/40%; SECREATIONS HAVE DECREASED IN [place] BUT CONT TO BE THICK AND TENACIOUS. HR 50-70'S. SBP 120-170'S. NO BM THIS SHIFT; VHP INFUSING VIA OG AT GOAL. LOW IN PLACE WITH 1100ML OUTPUT. DURING ORAL CARE, BLEEDING NOTED AT GUMS MORE EASILY; IV SITES SHOWING SIGNS OF SLIGHT BLEEDING; HEPARIN GTT NEW RATE IS 19UNITS/KG/HR. POWERGLIDE PLACED TO TIM D/T LT WRIST PIV LEAKING. WILL REPORT TO AM RN WHEN AVAILABLE.
--- NOTE | 2022-11-11 08:23 | NUR ---
Assumed care of pt at 0700. Report received from Elli Fishman RN. Pt sedated with propofol at 50 mcg/kg/min. Compliant with ventilator. Vent settings ACVC 16/450/5/40%. SpO2 95% or greater. ETCO2 38-42. SB per monitor, rate 53. BP stable. Cough, gag, corneal reflexes present. Oculocephalic not present, however this was the case yesterday when pt was receiving sedation.
--- NOTE | 2022-11-11 08:34 | NUR ---
SEDATION INTERRUPTION Propofol stopped at 0800. Neuro assessment in absence of sedation is as follows: Cough, gag, corneal, oculocephalic reflexes intact. Currently breathing over ventilator with RR of 31. Pupils are equal and briskly reactive to light. Pt grimacing at baseline. Grimacing intensifies with application of painful stimulus centrally or peripherally. Pt does not withdraw extremities when nailbed pressure applied. Fentanyl and tylenol given for pain management as pt is visibly uncomfortable. Currently tolerating ventilator. Occasionally coughs. Peak pressures 30.
--- NOTE | 2022-11-11 10:04 | NUR ---
Monserrat Muniz and Sami in to see patient. Pt remains off of sedation. Discussed plan to restart buprenorphine with goal of keeping patient off sedation for longer.
--- NOTE | 2022-11-11 14:58 | NUR ---
Noted prolonged QT (600+ ms) on morning rhythm strip. EKG done. Measurement on EKG is QT 460 and QTc 466. This RN verified measurement with calipers. EKG reviewed by Dr Muniz.
--- NOTE | 2022-11-11 18:45 | NUR ---
SUMMARY Neuro: Has been off sedation since 0800. Cough, gag, corneal, oculocephalic reflexes all intact. Spontaneously moves head left/right, unclear if purposeful. Family and staff have seen pt open eyes once today. This RN noted that pt withdraws from painful stimulus in BUE- left more noticable than right. Pupils equal and brisk reaction to light. Resp: No changes to ET tube placement or vent settings this shift. Tolerating vent much more after removing sedation- provided he is not positioning onto L side. Cardiac: SB-SR per monitor. Discussed earlier concerns about prolonged QT with Dr Baires and he stated that this is to be expected with a patient on amiodarone. GI: No changes to tube feed orders or formula. Given ducolax suppository and miralax. No BM noted. : Good urine output Skin: Unchanged from initial assessment. Family: Spouse and daughter in room for entire afternoon. Update given.
--- NOTE | 2022-11-11 22:10 | NUR ---
ASSUMED CARE AT 1900 PT DAUGHTER AND AT BEDSIDE DURING SHIFT REPORT; BOTH APPROPRIATE AND LEFT UNIT SHORTLY AFTERWARDS FOR THE NIGHT. PT LAYING IN BED INTUBATED WITH VENT SETTINGS AC/VC+ 16/450/5/40%; MODERATE AMOUNT OF TENACIOUS SECREATIONS NOTED. SEDATION HAS BEEN OFF SINCE DAY SHIFT; HE FREQUENTLY GRIMICES AT STIMUATION, WILL CHEW ON ETT; MINOR HEAD MOVEMENTS NOTED; EYES OPEN WITH REPOSITIONING; NOT FOLLOWING DIRECTIONS; POSITIVE DOLLS EYES; GAG AND COUGH PRESENT. TEMP 101.1; COOLING BLANKET AND TYLENOL GIVEN. HR 70-80'S. SBP 160'S; PM SCHEDULED HTN MEDICATION GIVEN; PRN AVAILABLE IF SBP CONT TO BE >160. VHP INFUSING VIA OG AT 35ML/HR (GOAL) WITH 30ML WATER FLUSHES Q4HR; NO BM SINCE ARRIVAL TO HOSPITAL; MOM GIVEN WITH PM MEDS AGAIN. LOW IN PLACE AND DRAINING TO GRAVITY. HEPARIN INFUSING AT 21UNITS/KG/HR. SEE SHIFT ASSESSMENT FOR FULL ASSESSMENT.
[2022-11-12] VITALS (67 sets, daily range): BP systolic 131–201; BP diastolic 52–112
[2022-11-12 01:29] LABS: BASOPHILS ABSOLUTE AUTO 0.03 K/mm3 (0.00-0.23); BASOPHILS PERCENT AUTO 0 % (0-2); EOSINOPHILS ABSOLUTE AUTO 0.15 K/mm3 (0.00-0.68); EOSINOPHILS PERCENT AUTO 1 % (0-6); Hematocrit 30.4 % (37.0-53.0); Hemoglobin 9.5 g/dL (13.5-17.5); IMMATURE GRAN ABSOLUTE AUTO 0.16 K/mm3 (0.00-0.10); IMMATURE GRAN PERCENT AUTO 1 % (0-1); LYMPHOCYTES ABSOLUTE AUTO 0.75 K/mm3 (0.84-5.20); LYMPHOCYTES PERCENT AUTO 5 % (21-46); MONOCYTES ABSOLUTE AUTO 1.28 K/mm3 (0.16-1.47); MONOCYTES PERCENT AUTO 8 % (4-13); Mean Corpuscular HGB 26.6 pg (26.0-34.0); Mean Corpuscular HGB Conc 31.3 g/dL (31.5-36.5); Mean Corpuscular Volume 85 fL (80-100); Mean Platelet Volume 9.7 fL (9.1-12.4); NEUTROPHILS ABSOLUTE AUTO 14.08 K/mm3 (1.96-9.15); NEUTROPHILS PERCENT AUTO 86 % (41-73); Platelet Count 308 K/mm3 (150-400); RDW Coefficient Variation 15.9 % (11.7-14.2); RDW Standard Deviation 48.8 fL (35.1-46.3); Red Blood Cell Count 3.57 M/mm3 (4.30-5.90); White Blood Cell Count 16.45 K/mm3 (4.00-11.30)
--- NOTE | 2022-11-12 06:21 | NUR ---
END OF SHIFT SUMMARY NO ACUTE EVENTS OVERNIGHT. PT CONT TO BE INTUBATED WITH VENT SETTINGS AC/VC+ 16/450/5/30%; CONT TO HAVE THICK GONGORA ETT SECREATIONS. NO CHANGES IN NEURO STATUS; CONT TO GRIMICE FREQUENTLY; OCCATIONALLY OPENS EYES WITH REPOSITIONING; CONT TO NOT FOLLOW ANY DIRECTIONS; NO MOVEMENT NOTED TO BUE OR BLE. MAX TEMP 101.1; COOLING BLANKET IN PLACE AND TYLENOL GIVEN TWICE. HR 70'S. BP CHALLENGING TO MANAGE; PRN LABETALOL NEEDED BETWEEN SCHEDULED BP MEDS TO MANAGE SBP; BP MEDS GIVEN EVERY 2-3HR FOR THIS; SBP RANGED FROM 140-170'S. VHP INFUSING VIA OG AT GOAL; TWO SMALL BM'S THIS SHIFT, COMBINATION OF LIQUID AND PELLETS. LOW IN PLACE WITH 1900ML OUTPUT. HEPARIN INFUSING AT 21UNITS/KG/HR. WILL REPORT TO AM RN WHEN AVAILABLE.
[2022-11-12 07:00] LABS: Albumin, Blood 2.2 g/dL (3.4-5.0); Anion Gap 4 mmol/L (6-16); Blood Urea Nitrogen 19 mg/dL (8-24); Bun/Creatinine Ratio 27.9 (12.0-20.0); CO2, Blood 31 mmol/L (21-32); Calcium, Blood 8.2 mg/dL (8.5-10.1); Chloride, Blood 104 mmol/L (98-108); Creatinine, Blood 0.68 mg/dL (0.60-1.20); Glomerular Filtration Rate 102 (60-); Glucose, Blood 200 mg/dL (70-99); Phosphorus, Blood 2.1 mg/dL (2.5-4.9); Potassium, Blood 4.1 mmol/L (3.5-5.5); Sodium, Blood 139 mmol/L (136-145)
--- NOTE | 2022-11-12 07:50 | NUR ---
ASSUMED CARE OF LLUVIA AT 0700, BEDSIDE REPORT FROM MICHAEL Fishman. PT CONTINUES ON VENT SETTINGS UNCHANGED. SATS AND VITALS WNL. PT WITH GRIMACING WITH OR WITHOUT STIMULI. ETT RETAPED WITH RT, PT TRIES KEEPING HEAD TO THE RIGHT. INCREASED RESPIRATORY RATE DURING CHANGE, MEDICATED WITH FENTANYL WITH GOOD RELIEF. SEE ASSESSMENT FOR FURTHER DETAILS.
--- NOTE | 2022-11-12 12:35 | NUR ---
PT HAD A LARGE VOLUME OF KOWALSKI/BROWN EMESIS. THERE WAS SMALL PIECES OF HARD BITS IN THE EMESIS. HE THREW UP 3 TIMES AROUND THE ETT AND THE TUBE FEEDING WAS STOPPED IMMEDIATELY. EFFORTS TO USE YANKAUER SUCTION WERE NOT SUCCESSFUL. PT WAS THEN THOROUGHLY BATHED AND LINENS CHANGED. THE OGT WAS PLACED TO SUC- TION INITIALLY THEN THE NOON LOPRESSOR WAS GIVEN AFTER NOON AND CLAMPED. PT CONTINUES TO NOT HAVE ANY NOTICEABLE PURPOSEFUL MOVEMENTS. HE IS CONTINUING TO GRIMACE AND WILL OPEN HIS EYES ON OCC. HE WILL NOT DO IT ON COMMAND. HE IS MOVING HIS HEAD UP AND DOWN AND MAINTAINING IT LOOKING RIGHT, EVEN WHEN ATTEMPTS TO REPOSITION.
--- NOTE | 2022-11-12 18:45 | NUR ---
LLUVIA HAS CONTINUED ON THE VENTILATOR, NO CHANGES. HE HAS MOVED HIS HEAD SIDE TO SIDE AND UP AND DOWN, HE ALSO HAS OCC OPENED HIS EYES. HE DOES NOT DO THIS IN RESPONSE TO ANYTHING ie VERBAL OR PAINFUL STIMULI. HE HAS VOMITED VOLUMES OF DARK GREEN/BROWN FLUID BEGINNING AROUND 1130. HE HAS HAD 2 BED BATH/LINEN CHANGES. HE HAS HAD 2 SMALL UNFORMED BOWEL MOVEMENTS OF GREEN/BROWN COLOR. HE REMAINS STIFF T/O WHEN HE IS TURNED OR REPOSITIONED. HE DOES NOT SHOW ANY SIGNS OF DEFENSIVE POSITION WHEN HE IS TURNED OR MOVED. HE CONTINUES TO RUN IN THE 100.1-101.0 RANGE WITH THE COOLING BLANKET IN PLACE. AND DAUGHTER WERE HERE FOR A BIT THIS AM BEFORE LUNCH. PT HAS BEEN TURNED Q2, ORAL CARE DONE Q4, LOW CARE DONE AT LEAST 3 TIMES.
[2022-11-13] VITALS (82 sets, daily range): BP systolic 127–197; BP diastolic 54–88
--- NOTE | 2022-11-13 03:02 | NUR ---
PT HAS BECOME INCREASINGLY RESTLESS THROUGHOUT THE SHIFT. HE IS UNABLE TO MOVE HIS EXTREMITIES BUT IS THRASHING HIS HEAD SIDE TO SIDE AND BECOMING INCREASINGLY ASYNCHRONOUS W/THE VENTILATOR. PT HAS HAD INCREASE IN HR AND BP AND OXYGEN SAT HAVE DECREASED. PRN FENTANYL, ATIVAN AND HYPERTENSIVES WERE USED TO TRY AND MANAGE PT BUT DID NOT SUFFICE. PROPOFOL WAS RESTARTED FOR VENT COMPLIANCE AND HEMODYNAMIC STABILITY OF PATIENT.
[2022-11-13 04:51] LABS: BASOPHILS ABSOLUTE AUTO 0.03 K/mm3 (0.00-0.23); BASOPHILS PERCENT AUTO 0 % (0-2); EOSINOPHILS ABSOLUTE AUTO 0.09 K/mm3 (0.00-0.68); EOSINOPHILS PERCENT AUTO 1 % (0-6); Hematocrit 34.4 % (37.0-53.0); Hemoglobin 10.6 g/dL (13.5-17.5); IMMATURE GRAN ABSOLUTE AUTO 0.16 K/mm3 (0.00-0.10); IMMATURE GRAN PERCENT AUTO 1 % (0-1); LYMPHOCYTES ABSOLUTE AUTO 1.25 K/mm3 (0.84-5.20); LYMPHOCYTES PERCENT AUTO 7 % (21-46); MONOCYTES ABSOLUTE AUTO 1.32 K/mm3 (0.16-1.47); MONOCYTES PERCENT AUTO 8 % (4-13); Mean Corpuscular HGB 26.2 pg (26.0-34.0); Mean Corpuscular HGB Conc 30.8 g/dL (31.5-36.5); Mean Corpuscular Volume 85 fL (80-100); Mean Platelet Volume 9.9 fL (9.1-12.4); NEUTROPHILS ABSOLUTE AUTO 14.78 K/mm3 (1.96-9.15); NEUTROPHILS PERCENT AUTO 84 % (41-73); Platelet Count 383 K/mm3 (150-400); RDW Coefficient Variation 15.9 % (11.7-14.2); RDW Standard Deviation 49.4 fL (35.1-46.3); Red Blood Cell Count 4.04 M/mm3 (4.30-5.90); White Blood Cell Count 17.63 K/mm3 (4.00-11.30)
[2022-11-13 05:23] LABS: Albumin, Blood 2.4 g/dL (3.4-5.0); Anion Gap 4 mmol/L (6-16); Blood Urea Nitrogen 21 mg/dL (8-24); Bun/Creatinine Ratio 27.6 (12.0-20.0); CO2, Blood 32 mmol/L (21-32); Calcium, Blood 8.8 mg/dL (8.5-10.1); Chloride, Blood 101 mmol/L (98-108); Creatinine, Blood 0.76 mg/dL (0.60-1.20); Glomerular Filtration Rate 99 (60-); Glucose, Blood 179 mg/dL (70-99); Phosphorus, Blood 2.6 mg/dL (2.5-4.9); Potassium, Blood 3.7 mmol/L (3.5-5.5); Sodium, Blood 137 mmol/L (136-145)
--- NOTE | 2022-11-13 06:24 | NUR ---
SHIFT SUMMERY AFTER RESTARTING PROPOFOL, PT HAS BECOME COMPLIANT W/THE VENTILATOR AND BP HAS RETURNED TO NORMAL LIMITS. PT IS SR ON THE MARKETING COMMUNICATIONS SPECIALIST. NO OTHER ACUTE CHANGES OVERNIGHT.
--- NOTE | 2022-11-13 18:14 | NUR ---
LLUVIA CONTINUES ON THE VENTILATOR, SETTINGS UNCHANGED. PROPOFOL @ 20MCG/KG, HEPARIN GTT @ 21U, NS @ TKO. OGT CONTINUES ON LIS WITH 300ML RETURN OF GREEN/ BROWN. NO BM'S THIS SHIFT. ORAL CARE Q4, TURNED Q2, COOLING BLANKET REMAINS ON. PT WILL SPONTANEOUSLY OPEN HIS EYES, USUALLY ROLLED BACK BEHIND HIS EYELIDS, DOESN'T FOCUS ON ANYTHING, DOESN'T FOLLOW COMMAND. HEAD MOVES FROM SIDE TO SIDE, USUALLY MORE FEVERISHLY WHEN AGITATED. MEDICATED WITH FENTANYL 50MCG REGULARLY. STILL NO DEFENSIVE MOVEMENTS OR SPONTANEOUS MOVEMENT NOTED FROM THE EXTREMITIES. SBP ELEVATED, MEDICATED PRN X1. AND DAUGHTER HERE THIS AFTERNOON.
[2022-11-14] VITALS (89 sets, daily range): BP systolic 106–189; BP diastolic 50–95
[2022-11-14 05:26] LABS: BASOPHILS ABSOLUTE AUTO 0.05 K/mm3 (0.00-0.23); BASOPHILS PERCENT AUTO 0 % (0-2); EOSINOPHILS ABSOLUTE AUTO 0.33 K/mm3 (0.00-0.68); EOSINOPHILS PERCENT AUTO 3 % (0-6); Hematocrit 31.9 % (37.0-53.0); Hemoglobin 9.8 g/dL (13.5-17.5); IMMATURE GRAN ABSOLUTE AUTO 0.11 K/mm3 (0.00-0.10); IMMATURE GRAN PERCENT AUTO 1 % (0-1); LYMPHOCYTES ABSOLUTE AUTO 1.53 K/mm3 (0.84-5.20); LYMPHOCYTES PERCENT AUTO 13 % (21-46); MONOCYTES ABSOLUTE AUTO 1.23 K/mm3 (0.16-1.47); MONOCYTES PERCENT AUTO 10 % (4-13); Mean Corpuscular HGB 26.1 pg (26.0-34.0); Mean Corpuscular HGB Conc 30.7 g/dL (31.5-36.5); Mean Corpuscular Volume 85 fL (80-100); Mean Platelet Volume 9.8 fL (9.1-12.4); NEUTROPHILS ABSOLUTE AUTO 8.79 K/mm3 (1.96-9.15); NEUTROPHILS PERCENT AUTO 73 % (41-73); Platelet Count 347 K/mm3 (150-400); RDW Coefficient Variation 16.2 % (11.7-14.2); Red Blood Cell Count 3.76 M/mm3 (4.30-5.90); White Blood Cell Count 12.04 K/mm3 (4.00-11.30)
[2022-11-14 05:54] LABS: Albumin, Blood 2.4 g/dL (3.4-5.0); Anion Gap 6 mmol/L (6-16); Blood Urea Nitrogen 20 mg/dL (8-24); Bun/Creatinine Ratio 26.3 (12.0-20.0); CO2, Blood 33 mmol/L (21-32); Calcium, Blood 8.6 mg/dL (8.5-10.1); Chloride, Blood 103 mmol/L (98-108); Creatinine, Blood 0.76 mg/dL (0.60-1.20); Glomerular Filtration Rate 99 (60-); Glucose, Blood 130 mg/dL (70-99); Phosphorus, Blood 3.6 mg/dL (2.5-4.9); Potassium, Blood 3.5 mmol/L (3.5-5.5); Sodium, Blood 142 mmol/L (136-145)
--- NOTE | 2022-11-14 06:05 | NUR ---
SHIFT SUMMERY PT CONTINUES TO INTUBATED W/PROPOFOL FOR VENT COMPLIANCE AT 30MCGS. VS HAVE BEEN STABLE OVERNIGHT.OG TO TO ILWS, NO VOMITING. HEPARIN DRIP INFUSING AT 21UNITS, NO CHANGE TO THAT. PT HAS HAD NO MOVEMENT EXCEPT HIS NECK AND WILL GRIMICE WELL OPEN AND CLOSE EYES BUT WITH NO PURPOSE OR FOCUS. NO ACUTE CHANGES OVERNIGHT.
--- NOTE | 2022-11-14 13:46 | NUR ---
Spiritual Care Visit. Pt. is intubated and mostly non responsive. Spouse is present and welcomes my visit. Pt. displays evidence of bein ga little more responsive by nodding his head, opening eyes for a longer periods of time and reaching for things. Re-established rapport with spouse and facilitated a life review that focused on common community relationships. Spouse displayed evidence of being encouraged. Nurse arrived to oral care. Spouse verbalized gratitude for the continued spiritual care that she has received and welcomed this underwriting manager to return.
--- NOTE | 2022-11-14 19:36 | NUR ---
ASSUMPTION OF CARE PT REMAINS INTUBATED, ON SPONTANEOUS MODE AT THIS TIME W/OXYGEN SAT 90%. NO S/S OF RESP DISTRESS. TOLERATING WELL. SEDATED W/PRECEDEX. PT IS SR, BP WNL. OG TO ILWS. HEPARIN DRIP INFUSING PER MD ORDERS.
--- NOTE | 2022-11-14 19:36 | NUR ---
SHIFT ASSESSMENT PT REMAINS INTUBATED. OFF SEDATION FOR MOST OF THE DAY. ON SPONTANEOUS 09/23 @ 30% c SATS >90% SINCE 929. OGT CLAMPED. TEMP PROBE LOW DRAINING YELLOW URINE, AFEBRILE. MID AFTERNOON PT BEGAN MOVING BOTH ARMS, LEFT SIDE MORE THAN RIGHT, AND BOTH LEGS. REACHING FOR ETT, NOT FOLLOWING COMMANDS, NOT REDIRECTABLE. PTS SPOUSE AT BEDSIDE T/O DAY ASSISTING WITH PTS HANDS, PT NOW IN BL SOFT RESTRAINTS. PRECEDEX STARTED AROUND 1700, WILL ATTEMPT TO KEEP OFF OF PROPOFOL T/O NIGHT. NO OTHER ACUTE CHANGES NOTED.
[2022-11-15] VITALS (89 sets, daily range): BP systolic 133–201; BP diastolic 56–98
[2022-11-15 05:28] LABS: Hematocrit 31.6 % (37.0-53.0); Hemoglobin 9.8 g/dL (13.5-17.5); Mean Corpuscular HGB 26.3 pg (26.0-34.0); Mean Corpuscular Volume 85 fL (80-100); Mean Platelet Volume 9.6 fL (9.1-12.4); Platelet Count 315 K/mm3 (150-400); RDW Coefficient Variation 15.9 % (11.7-14.2); RDW Standard Deviation 49.2 fL (35.1-46.3); Red Blood Cell Count 3.72 M/mm3 (4.30-5.90)
[2022-11-15 05:54] LABS: Bun/Creatinine Ratio 26.8 (12.0-20.0); Calcium, Blood 9.1 mg/dL (8.5-10.1); Creatinine, Blood 0.71 mg/dL (0.60-1.20); Magnesium, Blood 2.3 mg/dL (1.6-2.4); Phosphorus, Blood 3.3 mg/dL (2.5-4.9); Potassium, Blood 3.5 mmol/L (3.5-5.5)
--- NOTE | 2022-11-15 06:14 | NUR ---
SHIFT SHAHANA PT CONTINUES TO BE INTUBATED VIA ETT. HE HAS BEEN ON SPONTANEOUS MODE THE ENTIRE SHIFT, OXYGEN SAT >90%. HE DOES BECOME AGITATED W/STIMULATION, PRECEDEX INFUSING TO MANANGE AGITIATION. HE IS MOVING BOTH OF HIS UPPER EXTREMITIES, HE DOES OPEN HIS EYES BUT DOES NOT FOLLOW DIRECTIONS. HE IS SR/SB ON THE OVERLOCK HEMMER. HYPERTENSIVE AT TIMES WHEN STIMULATED.
--- NOTE | 2022-11-15 08:45 | NUR ---
INITIAL ASSESSMENT PATIENT INTUBATED AND ON PRECEDEX AT 0.7 MCG/ KG/ HOUR. PATIENT RESPOND TO VERBAL STIMULI WITH OPENING OF EYES AND LOOKING AROUND ROOM. PATIENT DOES NOT LOOK AT NURSE OR TRACK NURSE. PATIENT IS NOT FOLLOWING COMMANDS. PATIENT DOES GRIMACE TO NOXIOUS STIMULI AND TRIES TO GRAB UP TOWARD ETT WHEN BEING REPOSITIONED. PATIENT AFEBRILE. NO SIGNS OF PAIN NOTED AT THIS TIME. PATIENT ON SPONTANEOUS PRESSURE SUPPORT OF 5/5 AND 30% FIO2. LUNGS ARE COARSE THROUGHOUT. MODERATE AMOUNT OF THICK, GONGORA SPUTUM BEING SUCTIONED FROM ETT. PATIENT IN SR, HR IN THE 60S. SBP IN THE 170S. ABD MODERATELY DISTENDED, FIRM, WITH NORMOACTIVE BOWEL SOUNDS NOTED. OG IN PLACE TO LIS. LOW IN PLACE DRAINING YELLOW COLORED URINE. ABRASION TO L FOREHEAD. SCATTERED SCABS AND BRUISES NOTED. SKIN PLACE. HEPARIN DRIP AT 21 UNITS/ KG/ HOUR. NS TKO. BED LOW, CALL LIGHT IN REACH. WILL CONTINUE TO MONITOR PATIENT FREQUENTLY THROUGHOUT SHIFT.
--- NOTE | 2022-11-15 13:00 | NUR ---
PATIENT HAS TEMP OF 99.0 DEGREES FAHRENHEIT. HR 80S TO 90S. SBP 170S TO 200S. PATIENT ANXIOUS AT TIMES. PATIENT HAD BREAK FROM PRECEDEX BUT IS BACK ON IT. PATIENT DOES NOW LOOK AT NURSE WHEN ASKED TO; PATIENT NOT FOLLOWING ANY OTHER COMMANDS AT THIS TIME. PIVOT 1.5 STARTED AT 25 MLS/ HOUR (GOAL RATE OF 45 MLS/ HOUR) WITH 30 ML WATER FLUSH Q4H. FAMILY AT BEDSIDE.
--- NOTE | 2022-11-15 15:23 | NUR ---
PATIENT HAD 10 BEAT RUN OF VTACH. DR. ESTRADA INFORMED. NO ORDERS RECEIVED.
--- NOTE | 2022-11-15 16:00 | NUR ---
PATIENT AFEBRILE. HR 50S TO 60S. SBP IN THE 160S AFTER AMLODIPINE DOSE INCREASED AND GIVEN. NO OTHER ACUTE CHANGES TO NOTE ON AT THIS TIME. WILL CONTINUE TO MONITOR.
--- NOTE | 2022-11-15 18:59 | NUR ---
SHIFT SUMMARY PATIENT REMAINED INTUBATED. PATIENT TAKEN OFF PRECEDEX TODAY TO ASSESS NEURO. PATIENT DID LOOK AT NURSE WHEN NURSE ASKED PATIENT TO LOOK AT. PATIENT DID NOT FOLLOW ANY OTHER COMMANDS THIS SHIFT. PATIENT REMAINED OPENING EYES TO VERBAL STIMULI AND LOCALIZING MOVEMENTS TO EXTREMITIES TO NOXIOUS STIMULI. LUNGS REMAINED COARSE. PATIENT REMAINED ON SPONTANEOUS VENT SETTINGS OF 5/5 AND 30% FIO2. PATIENT SB TO SR, HR 50S TO 90S. SBP 140S TO 201. PATIENT AMLODIPINE DOSE INCREASED AND GIVEN THIS SHIFT. PATIENT HAD ONE BM THIS SHIFT. TF RESTARTED; PIVOT 1.5 AT 25 MLS PER HOUR. TF CAN BE INCREASED TO GOAL RATE OF 45 MLS/ HOUR AT 2100. 1100 MLS OF URINE OUT FROM LOW. NO CHANGES TO SKIN NOTED. PATIENT REPOSITIONED Q2H. PRECEDEX AT 0.7 MCG/ KG/ HOUR. HEPARIN REMAINS AT 21 UNITS/ KG/ HOUR. PATIENT'S AND DAUGHTER IN TO VISIT DURING THE DAY. PATIENT APPEARS CONTENT AT THIS TIME. BED LOW, CALL LIGHT IN REACH. REPORT WILL BE GIVEN TO ASSUMING RHEOSTAT ASSEMBLER NURSE SHORTLY.
[2022-11-16] VITALS (79 sets, daily range): BP systolic 131–180; BP diastolic 42–124
[2022-11-16 05:36] LABS: BASOPHILS ABSOLUTE AUTO 0.03 K/mm3 (0.00-0.23); BASOPHILS PERCENT AUTO 0 % (0-2); EOSINOPHILS ABSOLUTE AUTO 0.29 K/mm3 (0.00-0.68); EOSINOPHILS PERCENT AUTO 2 % (0-6); Hematocrit 32.1 % (37.0-53.0); Hemoglobin 9.9 g/dL (13.5-17.5); IMMATURE GRAN ABSOLUTE AUTO 0.12 K/mm3 (0.00-0.10); IMMATURE GRAN PERCENT AUTO 1 % (0-1); LYMPHOCYTES ABSOLUTE AUTO 1.15 K/mm3 (0.84-5.20); LYMPHOCYTES PERCENT AUTO 10 % (21-46); MONOCYTES ABSOLUTE AUTO 0.96 K/mm3 (0.16-1.47); MONOCYTES PERCENT AUTO 8 % (4-13); Mean Corpuscular HGB 26.3 pg (26.0-34.0); Mean Corpuscular HGB Conc 30.8 g/dL (31.5-36.5); Mean Corpuscular Volume 85 fL (80-100); Mean Platelet Volume 10.1 fL (9.1-12.4); NEUTROPHILS ABSOLUTE AUTO 9.41 K/mm3 (1.96-9.15); NEUTROPHILS PERCENT AUTO 79 % (41-73); Platelet Count 316 K/mm3 (150-400); RDW Coefficient Variation 15.9 % (11.7-14.2); RDW Standard Deviation 49.3 fL (35.1-46.3); Red Blood Cell Count 3.76 M/mm3 (4.30-5.90); White Blood Cell Count 11.96 K/mm3 (4.00-11.30)
[2022-11-16 05:54] LABS: Bun/Creatinine Ratio 31.6 (12.0-20.0); Calcium, Blood 8.8 mg/dL (8.5-10.1); Creatinine, Blood 0.63 mg/dL (0.60-1.20); Potassium, Blood 3.4 mmol/L (3.5-5.5)
--- NOTE | 2022-11-16 06:03 | NUR ---
SHIFT SUMMERY PT WAS PLACED BACK ON VENT SETTINGS FROM SPONTANEOUS EARLIER IN THE SHIFT DUE TO NOT PULLING HIS TIDAL VOLUMES. PRECEDEX REMAINS AT THE SAME RATE IT WAS AT SHIFT BEGINNING. PT IS SB ON THE BIOFUELS OPERATIONS MANAGER, BP WNL. PT HAS BEEN AFEBRILE. HE HAS HAD NO ACUTE CHANGES/DISTRESS THIS SHIFT.
--- NOTE | 2022-11-16 09:00 | NUR ---
INITIAL ASSESSMENT PATIENT INTUBATED. PATIENT ON PRECEDEX AT 0.7 MCG/ KG/ HOUR TO HELP WITH ANXIETY AND AGITATION. PATIENT RESPONDS TO VERBAL STIMULI BY LOOKING AT NURSE. PATIENT IS NOT FOLLOWING ANY COMMANDS AT THIS TIME. PATIENT LOCALIZING MOVEMENTS TO ALL EXTREMITIES BUT HAS LIMITED RANGE. PATIENT AFEBRILE. PATIENT GIVEN PRN FENTANYL THIS AM FOR SIGNS OF PAIN. LUNGS COARSE. PATIENT ON ACVC WHEN FIRST ARRIVED ON SHIFT AND IS NOW ON SPONTANEOUS PRESSURE SUPPORT OF 7/5 AND 30% FIO2. MODERATE AMOUNT OF THICK, GONGORA SECRETIONS BEING SUCTIONED FROM ETT. PATIENT IN SB, HR IN THE 40S. SBP IN THE 140S. ABD SOFT, NORMOACTIVE BOWEL SOUNDS NOTED. PIVOT 1.5 INFUSING AT GOAL RATE OF 45 MLS/ HOUR WITH 30 ML WATER FLUSH Q4H. LOW DRAINING YELLOW COLORED URINE. FACE LATRELL. SKIN PALE. SCATTERED SCABS AND BRUISES NOTED. HEPARIN DRIP AT 21 UNITS/ KG/ HOUR. BED LOW, CALL LIGHT IN REACH. WILL CONTINUE TO MONITOR PATIENT FREQUENTLY THROUGHOUT SHIFT.
--- NOTE | 2022-11-16 13:00 | NUR ---
PATIENT AFEBRILE. HR IN THE 50S. SBP IN THE 140S. BLOOD SUGAR 176. PATIENT REMAINS ON SAME VENT SETTINGS. AT BEDSIDE. WILL CONTINUE TO MONITOR.
--- NOTE | 2022-11-16 16:00 | NUR ---
PATIENT AFEBRILE. HR IN THE 50S. SBP IN THE 150S. PATIENT REMAINS ON SAME VENT SETTINGS. NO OTHER ACUTE CHANGES TO NOTE ON AT THIS TIME.
--- NOTE | 2022-11-16 19:00 | NUR ---
SHIFT SUMMARY PATIENT HAS REMAINED INTUBATED. PATIENT HAS REMAINED ON PRECEDEX RANGING FROM 0.3 TO 0.7 MCG/ KG/ HOUR. PATIENT REMAINS TRACKING NURSE BUT NOT FOLLOWING COMMANDS. PATIENT ABLE TO MOVE ALL EXTREMITIES WITH GOOD STRENGTH. PATIENT REMAINED AFEBRILE. PATIENT GIVEN PRN FENTANYL A FEW TIMES FOR SIGNS OF DISCOMFORT. LUNGS REMAINED COARSE. MODERATE AMOUNT OF THICK, GONGORA SECRETIONS OUT FROM ETT. PATIENT REMAINED ON SPONTANEOUS PRESSURE SUPPORT OF 7/5 AND 30% FIO2. PATIENT REMAINED SB, HR 40S TO 50S. SBP 130S TO 160S. NO BM THIS SHIFT. TF REMAINED AT GOAL RATE AND TOLERATED WELL. WATER FLUSHED INCREASED TO 250 MLS Q6H. 700 MLS OF GABRIELA COLORED URINE OUT FROM LOW THIS SHIFT. NO CHANGES TO SKIN NOTED. PATIENT UP TO CHAIR WITH LIFT THIS SHIFT. HEPARIN DRIP REMAINS AT 21 UNITS/ KG/ HOUR. AND DAUGHTER IN TO VISIT ALL AFTERNOON. BED LOW, CALL LIGHT IN REACH. REPORT HAS BEEN GIVEN TO ASSUMING U.S. COMMISSIONER NURSE.
--- NOTE | 2022-11-16 22:35 | NUR ---
ASSUMED CARE AT 1900 PT UP IN THE CHAIR AT SHIFT CHANGE WITH HIS AT HIS SIDE; SHE LEFT SHORTLY AFTERWARDS. PT APPEARS VERY RESTLESS; PULLING AGAINST RESTRAINTS; PRECEDEX TITRATED UP TO 0.7MCG/KG/HR AND PRN FENTANYL GIVEN; HE IS VERY STRONG; MOVES ALL EXTREMITIES; CHALLENGING TO ASSESS IF HE IS FOLLOWING DIRECTIONS OR IF HE HAPPENS TO MOVE AFTER BEING ASKED; HE HAS NOT ANSWERED Y/N QUESTIONS AND PULLS AWAY DURING PERSONAL CARE; WHEN OUT OF RESTRAINTS HE RAISES HIS ARMS, MOVES AROUND AND ACCIDENTALLY PULLING AT LINES AND THE VENT. 2 RN, A LOADING INSPECTOR, AND RT ASSISTED WITH SAFELY MOVING PT BACK TO BED FROM CHAIR USING THE LIFT. ON THE VENT WITH SETTINGS SPONT 7/5, FIO2 30%, Vt 600'S; MODERATE AMOUNT OF THICK SECREATIONS FROM ETT. AFEBRILE. HR 60'S. SBP 150-160'S; PRN AVAILABLE FOR HTN. PIVOT INFUSING AT 45ML/HR (GOAL) WITH 250ML WATER FLUSH Q4HR. LOW IN PLACE AND DRAINING TO GRAVITY. ABRASIONS TO LT UPPER EYE AND LT SHOULDER IMPROVING. POWERGLIDE PULLED D/T CATH BEING LOOPED UNDER DRESSING AND 7.5CM EXPOSED; PLAN TO PLACE ANOTHER PIV. HEPARIN INFUSING AT 21UNITS/KG/HR. SEE SHIFT ASSESSMENT FOR FULL ASSESSMENT.
[2022-11-17] VITALS (76 sets, daily range): BP systolic 107–169; BP diastolic 42–93
--- NOTE | 2022-11-17 01:26 | NUR ---
UPDATE PT MUCH MORE RESTLESS THAN PREVIOUSLY; BOTH KNEES HITTING THE SIDE RAILS AND PUSHING THE FOOT RAIL; HE IS NOT REDIRECTABLE. PRN FENTANYL AND ATIVAN GIVEN; MEPILEX PLACED ON BOTH KNEES; PINK FOAM HEEL PROTECTORS ON BILATERAL FEET.
--- NOTE | 2022-11-17 01:46 | NUR ---
UPDATE CHANGED PT FROM STRIKER BED TO A HILLROM BED THAT EXTENDS SO THE PATIENT CAN'T PUSH AGAINST THE BOTTOM OF THE BED. HE TOLERATED THIS WELL.
[2022-11-17 03:20] LABS: Hematocrit 33.6 % (37.0-53.0); Hemoglobin 10.2 g/dL (13.5-17.5); Mean Corpuscular HGB 26.2 pg (26.0-34.0); Mean Corpuscular HGB Conc 30.4 g/dL (31.5-36.5); Mean Corpuscular Volume 86 fL (80-100); Mean Platelet Volume 10.1 fL (9.1-12.4); Platelet Count 339 K/mm3 (150-400); RDW Standard Deviation 49.8 fL (35.1-46.3); Red Blood Cell Count 3.89 M/mm3 (4.30-5.90); White Blood Cell Count 12.91 K/mm3 (4.00-11.30)
[2022-11-17 04:02] LABS: Bun/Creatinine Ratio 32.2 (12.0-20.0); Calcium, Blood 9.5 mg/dL (8.5-10.1); Creatinine, Blood 0.71 mg/dL (0.60-1.20); Phosphorus, Blood 2.3 mg/dL (2.5-4.9); Potassium, Blood 3.5 mmol/L (3.5-5.5)
--- NOTE | 2022-11-17 06:37 | NUR ---
END OF SHIFT SUMMARY NO ACUTE EVENTS OVERNIGHT. PT CAN BE VERY RESTLESS IN BED, HITTING HIS KNEES ON THE SIDE RAILS AND PUSHING AGAINST THE FOOT BOARD; NOW THAT HE IS MOVED OVER TO A LONGER BED THIS BEHAVIOR HAS IMPROVED; CONT TO NOT FOLLOW DIRECTION; PRECEDEX INFUSING RIGHT NOW AT 0.4MCG/KG/HR (SEE FLOWSHEET FOR TITRATIONS). AFEBRILE. VENT SETTINGS CONT TO BE SPONT 7/5, FIO2 30%, Vt 350-600. HR 40-60. SBP 110-160. PIVOT CONT TO INFUSE AT GOAL. LOW IN PLACE AND DRAINING TO GRAVITY. HEPARIN INFUSING AT 21UNITS/KG/HR. WILL REPORT TO AM RN WHEN AVAILABLE.
--- NOTE | 2022-11-17 07:47 | NUR ---
ASSUMED CARE OF LLUVIA AT 0700 DURING BEDSIDE REPORT WITH MICHAEL Fishman RN. LLUVIA IS MOVING HIS LEFT SIDE QUITE AGGRESSIVELY, THE RIGHT SIDE, THE LEG WITH GO OFF THE BED AND THE ARM WILL PULL AGAINST THE RESTRAINT. EYES OPEN, WILL NOT LOOK TO VOICE OR MAKE EYE CONTACT. WILL NOT FOLLOW COMMANDS. FENTANYL MED GIVEN WITH NO APPARENT CHANGE IN BEHAVIORS. VENT CONTINUES ON SPONTANEOUS WITH MINIMAL YELLOW RETURN. PIVOT TB VIA OG @ 45ML/HR LOW TO GRAVITY DRAINGE WITH YELLOW RETURN.
--- NOTE | 2022-11-17 08:27 | NUR ---
3 PERSON TRANSFER OF PATIENT TO RECLINER VIA LIFT, TOLERATED WELL, PT DID MANAGE TO PULL IV FROM RIGHT WRIST.
--- NOTE | 2022-11-17 14:47 | NUR ---
[address] FOR HEAD CT. RT MARIUSZ MALDONADO, TRANSPORTER AND ANNELISE TRANSPORTER WITH THIS RN. PT TOLERATED WELL, SMOOTH TRANSITION FROM BED TO TABLE BACK TO BED AND BACK TO ROOM. HE WAS MOVED BACK TO THE BED FROM THE RECLINER PRIOR TO HEADING TO CT, HE HAD BEEN INCONTINENT OF SMALL BM.
--- NOTE | 2022-11-17 15:09 | NUR ---
Spiritual Care Visit. Pt. continues to be intubated and is not responsive. Spouse is present and is pleasant. Spouse verbalizes having had a very realistic and sensitive discussion with Palliative Care while Pt. was getting a CTscan. Spouse displays evidence of being very realistic about the Pts. prognosis. Facilitate discussion about spouse knowing the wishes of the Pt. Spouse verbalizes gratitude for the spiritual care visit, and welcomes this analysis evaluator to return.
--- NOTE | 2022-11-17 17:49 | NUR ---
Family Conference: Met with pt's today while pt was taken for CT scan. She reminisced about their first meeting, their years of marriage, having 2 daughters, and talked about their youngest daughter being killed in a car accident last year. She states it "changed" both her and her . She clarified they struggled emotionally for quite some time after, but had finally begun to heal, and then this event took place. She stated feeling some dread about the possibility her may require full care and assistance for the remainder of his life. She states they have talked about these things for years, and he was always clear he would never want to be kept alive if others had to care for him. She asked what would happen if he is extubated and remains unable to make purposeful movements, speak, or swallow food without choking, could she still take him home? I informed her she could, if those circumstances were the case, and we discussed hospice in depth. She asked many questions about hospice, and states feeling relieved to know this could be an option if pt doesn't "wake up". He is awake, with no sedation while on ventilator, but does not track or make any purposeful movements at this point. Pt's thanked me for the conversation and asked that I remain in touch through the process over the next several days.
--- NOTE | 2022-11-17 18:30 | NUR ---
LLUVIA HAS DONE WELL THIS AFTERNOON. HE CONTINUES ON SPONTANEOUS, 30% WITH SATS >90%. HE CONTINUES TO MAEW, OPEN HIS EYES BUT DOES NOT TRACK OR FOLLOW COMMANDS AT THIS TIME. HE WAS IN THE RECLINER FOR A COUPLE OF HOURS THIS AM THEN WENT RETURNED TO BED, THEN SINCE RETURN OF CT HE HAS BEEN NAPPING AND MORE RESTFUL. HE HAS HAD A COUPLE OF DOSES OF FENTANYL THIS SHIFT. HE CONTINUES TO TOLERATE TUBE FEEDING, LOW TO GRAVITY DRAINAGE AND ONE BM THIS SHIFT. HEPARIN DRIP AT SAME RATE (21U/KG/HR) AND PRECEDEX @ 0.4MCG/KG/HR. POWER GLIDE PLACED TO RIGHT UPPER ARM, LEFT WRIST PIV REMAINS INTACT AND IN USE. HERE FOR MOST OF AFTERNOON.
--- NOTE | 2022-11-17 21:40 | NUR ---
ASSUMED CARE AT 1900 PT LAYING IN BED INTUBATED WITH VENT SETTINGS SPONT 7/5, FIO2 30%, Vt 400-500; SMALL-MODERATE AMOUNT OF ETT SECREATIONS. HE IS LESS ACTIVE THAN PREIVOUS DAY; CONT TO NOT FOLLOW DIRECTIONS BUT WILL OPEN EYES SPONTANIOUSLY; HE IS MOVING BLE; WHEN OUT OF RESTRAINTS WILL RAISE HANDS UP; NO PURPOSEFUL MOVMENT NOTED; PRECEDEX INFUSING AT 0.4MCG/KG/HR (SEE FLOWSHEET FOR TITRATIONS). TEMP UP TO 100.7, FAN PLACED AND TYLENOL GIVEN VIA OG. HR 50-60'S. SBP 100-130'S; MAP 62-77. PIVOT INFUSING VIA OG AT 45ML/HR (GOAL) WITH 250ML WATER FLUSHES Q6HRS. LOW IN PLACE AND DRAINING TO GRAVITY. PT IS SWEATING, FAN IS HELPING. HEPARIN INFUSING AT 21UNITS/KG/HR. POWERGLIDE TO RUE PATENT WITH DRESSING C/D/I. SEE SHIFT ASSESSMENT FOR FULL ASSESSMENT. GABRIELA () AND WILDER (DAUGHTER) CALLED FOR AN UPDATE.
[2022-11-18] VITALS (43 sets, daily range): BP systolic 131–174; BP diastolic 57–146
--- NOTE | 2022-11-18 00:30 | NUR ---
UPDATE DURING 0000 ORAL CARE PT WAS VERY RESTLESS AND ACTIVE, HE GAGGED ON THE ORAL CARE AND VOMITTED A SMALL AMOUNT OF TUBE FEED. TUBE FEED STOPPED AND MOUTH AND ETT WAS SUCTIONED; NO SIGNS OF TUBE FEED IN ETT AND NOTHING ELSE ORALLY. PRECEDEX TITRATED UP TO 0.4MCG/KG/HR D/T PT MOVING SO MUCH IN BED THAT THE BED WAS SHAKING; PRN FENTANYL GIVEN TOO. WILL CONT TO MONITOR.
[2022-11-18 04:21] LABS: Hematocrit 29.6 % (37.0-53.0); Mean Corpuscular HGB 26.2 pg (26.0-34.0); Mean Corpuscular HGB Conc 30.4 g/dL (31.5-36.5); Mean Corpuscular Volume 86 fL (80-100); Mean Platelet Volume 10.1 fL (9.1-12.4); Platelet Count 310 K/mm3 (150-400); RDW Coefficient Variation 16.3 % (11.7-14.2); RDW Standard Deviation 50.7 fL (35.1-46.3); Red Blood Cell Count 3.43 M/mm3 (4.30-5.90); White Blood Cell Count 9.58 K/mm3 (4.00-11.30)
--- NOTE | 2022-11-18 04:30 | NUR ---
UPDATE PT IS RESTING MUCH MORE COMFORTABLY. WHEN STIMULATED HE WILL MOVE AROUND AND OPEN HIS EYES BUT WHILE NOT STIMULATED HE IS RESTING COMFORTABLY. NO NEW EPISODES OF EMESIS SO TUBE FEED RESTARTED.
[2022-11-18 04:43] LABS: Bun/Creatinine Ratio 34.8 (12.0-20.0); Calcium, Blood 8.4 mg/dL (8.5-10.1); Creatinine, Blood 0.63 mg/dL (0.60-1.20); Phosphorus, Blood 2.8 mg/dL (2.5-4.9); Potassium, Blood 3.7 mmol/L (3.5-5.5)
--- NOTE | 2022-11-18 06:12 | NUR ---
END OF SHIFT SUMMARY NO ACUTE EVENTS SINCE LAST NOTE. HE IS NOW RESTING MORE COMFORTABLY WITH PRECEDEX INFUSING AT 0.4MCG/KG/HR. CONT TO BE ON THE VENT WITH SETTINGS SPONT 7/5, FIO2 30%, Vt 400-600'S; SPUTUM PRODUCTION HAS SLOWED DOWN. TEMP RESPONDED TO FAN AND TYLENOL. HR 40-60'S. SBP 100-160'S. PIVOT INFUSING AT GOAL; NO BM THIS SHIFT. LOW IN PLACE AND DRAINING TO GRAVITY. HEPARIN INFUSING AT 21UNITS/KG/HR. WILL REPORT TO AM RN WHEN AVAILABLE.
--- NOTE | 2022-11-18 12:29 | NUR ---
PATIENT IS INTUBATED AT THIS TIME. WILL CONTINUE TO ASSESS RISK PATIENT CONDITIONS CHANGES/POST EXTUBATION. THERE IS CURRENTLY NO FAMILY OR VISITORS AT BEDSIDE. HOWEVER, FAMILY/VISITORS WILL BE EDUCATED ON IGNITION SOURCES AND RISK OF INJURY WHILE OXYGEN IS IN USE WELL ASKING IF THEY HAVE IGNITION SOURCES IN THEIR PERSONAL BELONGINGS ONCE THEY COME TO THE HOSPITAL/UNIT.
--- NOTE | 2022-11-18 15:21 | NUR ---
Care Conference: Met with pt's and daughter at bedside today. Yesterday met only with , and today, the daughter asked if we could discuss again what we discussed yesterday regarding what hospice is, and what they would be able to do for the pt if they were to take him home after extubation. We had an in depth discussion, and daughter v/u. Daughter reiterated what had said about pt's quality of life being important, and if he remains bedbound and unable to follow commands, they would place him on home hospice. Pt remains intubated for now. Will reassess on Monday, 11/21.
--- NOTE | 2022-11-18 17:40 | NUR ---
LLUVIA CONTINUES ON THE VENTILATOR ON SPONTANEOUS SETTING. HE CONTINUES WITH COUGH AND GAG. HIS STABILIZATION DEVICE WAS CHANGED THIS AFTERNOON WITH SWETHA R/T. HE CONTINUES WITH PIVOT TF @ GOAL RATE, LOW TO GRAVITY DRAINAGE AND BM X 2 THIS SHIFT. HE CONTINUES WITH MAEW, OPENS EYES SPONTANEOUSLY. HE DOES NOT FOLLOW COMMANDS. HE DID APPEAR TO FOCUS ON PEOPLE INTERMITTENTLY THIS SHIFT. HE ALSO SEEMED TO BE "WAVING" WHEN A VOICE WAS HEARD. HE REMAINS DIFFICULT TO TURN AND CHANGE HE IS VERY STIFF AND DOES NOT ASSIST WITH ANY MOVEMENT. HIS HAS BEEN BY THE BEDSIDE FOR MOST OF THE AFTERNOON. WAS ABLE TO SPEAK WITH HER AND THE DAUGHTER AND LLUVIA WAS MADE A "DNR". THEY DISCUSSED CONT ON FOR A COUPLE MORE DAYS BEFORE REMOVING THE ETT BUT TO NOT PROCEED WITH A TRACH AND PEG. NO FURTHER CHANGES THIS SHIFT.
--- NOTE | 2022-11-18 20:00 | NUR ---
ASSUMPTION OF CARE NOTE UPON ASSESSMENT PT EXHIBITS THRASHING AND FLAILING OF LIMBS. CURRENTLY IN BUE SOFT RESTRAINTS. ABLE TO FOLLOW COMMANDS INTERMITTENTLY. IS ABLE TO PLANTARFLEX AND SQUEEZE HANDS WITH DIRECTION. PUPILS RESPONSIVE BUT PT IS UNABLE TO TRACK ON COMMAND. COUGH, GAG, AND SWALLOW PRESENT. RESPONDS TO VERBAL STIMULI AND BECOMES VERY AGITATED WITH PHYSICAL STIMULATION. PRECEDEX AT .4 MCG/KG/HR. ETT TUBE IN PLACE, 25CM AT TEETH. REMAINS ON SPONT MODE 7/5 30% FIO2. LUNGS DIMINISHED AND COARSE AT BASES. BRADYCARDIC WITH STABLE BPS. LOW DRAINING TO GRAVITY. TF AT GOAL OF 45 ML/HR.
--- NOTE | 2022-11-18 20:30 | NUR ---
UPDATE TURNED PRECEDEX DOWN TO .3MCG/KG/HR. PT ABLE TO FOLLOW SOME COMMANDS STILL UNABLE TO TRACK OBJECTS. INCREASED THRASHING AND RN WAS UNABLE TO REDIRECT PT. PRECEDEX TURNED BACK TO .4MCG/KG/HR AND DECREASED STIMULATION. PT ABLE TO CALM DOWN.
[2022-11-19] VITALS (68 sets, daily range): BP systolic 109–182; BP diastolic 45–119
[2022-11-19 03:33] LABS: BASOPHILS ABSOLUTE AUTO 0.03 K/mm3 (0.00-0.23); BASOPHILS PERCENT AUTO 0 % (0-2); EOSINOPHILS ABSOLUTE AUTO 0.27 K/mm3 (0.00-0.68); EOSINOPHILS PERCENT AUTO 3 % (0-6); Hematocrit 29.6 % (37.0-53.0); Hemoglobin 9.2 g/dL (13.5-17.5); IMMATURE GRAN ABSOLUTE AUTO 0.08 K/mm3 (0.00-0.10); IMMATURE GRAN PERCENT AUTO 1 % (0-1); LYMPHOCYTES ABSOLUTE AUTO 1.19 K/mm3 (0.84-5.20); LYMPHOCYTES PERCENT AUTO 11 % (21-46); MONOCYTES PERCENT AUTO 7 % (4-13); Mean Corpuscular HGB 26.4 pg (26.0-34.0); Mean Corpuscular HGB Conc 31.1 g/dL (31.5-36.5); Mean Corpuscular Volume 85 fL (80-100); Mean Platelet Volume 10.2 fL (9.1-12.4); NEUTROPHILS ABSOLUTE AUTO 8.44 K/mm3 (1.96-9.15); NEUTROPHILS PERCENT AUTO 78 % (41-73); Platelet Count 292 K/mm3 (150-400); Red Blood Cell Count 3.49 M/mm3 (4.30-5.90); White Blood Cell Count 10.81 K/mm3 (4.00-11.30)
--- NOTE | 2022-11-19 03:36 | NUR ---
UPDATES SBPS IN 170S SINCE 29. 20MG LABATOLOL GIVEN WITH NO RESOLVE. SWITCHED BP CUFF TO ADULT LARGE ON LEFT UPPER ARM AND SBPS NOW READING IN 130S.
--- NOTE | 2022-11-19 03:45 | NUR ---
FIRE EDUCATION PATIENT NONVERBAL/INTUBATED/SEDATED. WILL CONTINUE TO ASSESS RISK PATIENT CONDITION CHANGES/POST EXTUBATION. NO FAMILY IN ROOM CURRENTLY
[2022-11-19 03:49] LABS: Bun/Creatinine Ratio 27.1 (12.0-20.0); Calcium, Blood 8.8 mg/dL (8.5-10.1); Creatinine, Blood 0.66 mg/dL (0.60-1.20); Magnesium, Blood 1.9 mg/dL (1.6-2.4); Phosphorus, Blood 2.8 mg/dL (2.5-4.9); Potassium, Blood 3.6 mmol/L (3.5-5.5)
--- NOTE | 2022-11-19 05:54 | NUR ---
SHIFT SUMMARY PT REMAINS ON SPONT SETTINGS 11/23 30% FIO2. PT BECAME AGITATED AROUND 0000, GAVE FENTYNAL AND REDUCED STIMULATION, WITH LITTLE SUCCESS BUT PT DID RELAX AROUND 4 AM. BP INTO 170S/80S WITH 1 DOSE OF IV LABATOLOL GIVEN. NO CHANGE IN BP FOR 1 HR. SWITCHED BP CUFF TO AN ADULT LARGE CUFF ON THE TIM WHICH SEEMED TO FIT MORE APPROPIATELY. BPS NOW 130S/60S. HR IS WAYNE NORMAL SINUS IN 50S. PT HAD 2 SMALL BMS AND LOW CONTINUES TO DRAIN TO GRAVITY. PRECEDEX AT 0.5 MCG/KG/HR. NO CHANGE TO HEPARIN GTT.
--- NOTE | 2022-11-19 11:02 | NUR ---
EDUCATION PATIENT NONVERBAL AND INTUBATED. WILL CONTINUE TO ASSESS RISK PATIENT CONDITION CHANGES. NO VISITORS IN ROOM TO EDUCATE AT THIS TIME.
--- NOTE | 2022-11-19 18:46 | NUR ---
SHIFT SUMMARY PRECEDEX STOPPED, CHANGED TO PROPOFOL. PROPOFOL NOW INF @ 20MCG/KG/MIN. PATIENT IS STILL KICKING AND RESTLESS IN BED, NOT FOLLOWING COMMANDS OR TRACKING TO SOUND. FAMILY AT BEDSIDE THIS AFTERNOON. REMAINS INTUBATED ON SPONTANEOUS AND MAINTAINING SPO2 GREATER THAN 90%. NO CARDIAC EVENTS DURING THE SHIFT. LOW PATENT AND DRAINED 1300ML OUT. 1 BM DURING SHIFT.
--- NOTE | 2022-11-19 20:00 | NUR ---
ASSUMPTION OF CARE PT APPEARS RESTLESS UPON INITIAL ASSESSMENT. PROPOFOL INCREASED FROM 20 TO 30 MCG/KG/MIN WITH GOOD RESULT. ABLE TO OPEN EYES TO VERBAL STIMULI BUT UNABLE TO FOLLOW ANY COMMANDS OR VISUALLY TRACK. REMAINS ON SPONTANEOUS SETTINGS 7/5 30%FIO2. IN SINUS RYTHYM BETWEEN LOW 50S TO HIGH 60S. BPS STABLE 130S/80S. LOW DRAINING TO GRAVITY WITH GOOD URINE OUTPUT.
[2022-11-20] VITALS (68 sets, daily range): BP systolic 99–170; BP diastolic 42–80
[2022-11-20 03:45] LABS: BASOPHILS ABSOLUTE AUTO 0.04 K/mm3 (0.00-0.23); BASOPHILS PERCENT AUTO 0 % (0-2); EOSINOPHILS ABSOLUTE AUTO 0.37 K/mm3 (0.00-0.68); EOSINOPHILS PERCENT AUTO 4 % (0-6); Hematocrit 30.6 % (37.0-53.0); Hemoglobin 9.5 g/dL (13.5-17.5); IMMATURE GRAN ABSOLUTE AUTO 0.06 K/mm3 (0.00-0.10); IMMATURE GRAN PERCENT AUTO 1 % (0-1); LYMPHOCYTES ABSOLUTE AUTO 1.38 K/mm3 (0.84-5.20); LYMPHOCYTES PERCENT AUTO 13 % (21-46); MONOCYTES ABSOLUTE AUTO 0.83 K/mm3 (0.16-1.47); MONOCYTES PERCENT AUTO 8 % (4-13); Mean Corpuscular HGB 26.4 pg (26.0-34.0); Mean Corpuscular Volume 85 fL (80-100); Mean Platelet Volume 10.2 fL (9.1-12.4); NEUTROPHILS ABSOLUTE AUTO 7.75 K/mm3 (1.96-9.15); NEUTROPHILS PERCENT AUTO 74 % (41-73); Platelet Count 313 K/mm3 (150-400); RDW Coefficient Variation 16.3 % (11.7-14.2); RDW Standard Deviation 49.7 fL (35.1-46.3); White Blood Cell Count 10.43 K/mm3 (4.00-11.30)
[2022-11-20 04:08] LABS: Bun/Creatinine Ratio 23.7 (12.0-20.0); Calcium, Blood 8.9 mg/dL (8.5-10.1); Creatinine, Blood 0.72 mg/dL (0.60-1.20); Magnesium, Blood 2.1 mg/dL (1.6-2.4); Phosphorus, Blood 3.7 mg/dL (2.5-4.9); Potassium, Blood 3.5 mmol/L (3.5-5.5)
--- NOTE | 2022-11-20 05:13 | NUR ---
SHIFT SUMMARY NO CHANGE TO NEURO STATUS. REMAINS ON SPONT. SETTINGS. 7/5 30%FIO2. LUNGS SOUND MORE COARSE THIS SHIFT WITH INCREASED SECRETIONS THAT WERE VERY THICK AND GONGORA. BP REMAINED STABLE AND HR IN 60S NSR. PROPOFOL REMAINES AT 30MCG/KG/MIN. AT THIS RATE PT STILL BECOMES EXTREMELY AGITATED WITH ANY STIMULI. ABD DISTENDED WITH ONE SMALL BOWEL MOVEMENT THIS SHIFT. GOOD URINE OUTPUT THIS SHIFT WITH LOW DRAINING TO GRAVITY. TF AT GOAL RATE OF 45 MLS/HR. PT INTUBATED/SEDATED WILL CONTINUE TO ASSESS FIRE RISK PATIENT CONDITION CHANGES, NO FAMILY IN ROOM. WILL EDUCATE WHEN APPROPRIATE FOR PT/
--- NOTE | 2022-11-20 09:41 | NUR ---
ASSUMED CARE/SEDATION VACATION I ASSUMED CARE OF THIS PATIENT AT 0700. BEDISDE REPORT RECEIVED FROM ALVARADO BERTRAND. PROPOFOL INF @ 25MCG/KG/MIN AT THAT TIME WITH PATIENT ABLE TO OPEN EYES AND MOVE BLE IN BED. PROPOFOL PLACED ON SB FOR SEDATION VACATION PER FLOWSHEET. PATIENT BEGAN THRASHING IN BED WITH BLE AND PULLING ON RESTRAINTS. DID NOT TRACK OR FOLLOW COMMANDS. PROPOFOL TURNED BACK ON AT 20MCG/KG/MIN PER FLOWSHEET. HEPARIN INF @ 21 UNTIS/KG/HR. LOW PATENT AND DRAINING TO GRAVITY. TF @ GR 45ML/HR W/ 250ML Q4H WATER FLUSHES.
--- NOTE | 2022-11-20 12:50 | NUR ---
FAMILY AT BEDSIDE, PROPOFOL OFF PROPOFOL PLACED ON SB WHILE FAMILY IS AT BEDSIDE TO ASSESS NEURO STATUS. PATIENT IS INCREASINGLY RESTLESS AND THRASHING IN BED. NOT RESPONDING TO VERBAL OR PHYSICAL STIMULI AND NOT FOLLOWING COMMANDS.
--- NOTE | 2022-11-20 17:51 | NUR ---
SHIFT SUMMARY PATIENT REMAINS INTUBATED AND SEDATED ON PROPOFOL 25 MCG/KG/MIN. STILL THRASHES LEGS IN BED AT TIMES OF STIMULI. NO FOLLOWING OF COMMANDS OR TRACKING OF SOUND. AFEBRILE T/O SHIFT. VENT REMAINS ON SPONTANEOUS WITH PS 7, PEEP 5, FIO2 30% WITH SPO2 MAINTAINING ABOVE 90%. LUNG SOUNDS HAVE BECOME INCREASINGLY COARSE WITH MODERATE THICK GONGORA/YELLOW SECRETIONS FROM ETT. TF REMAINS AT GR 45ML/HR AND HEPARIN INF @ 21 UNITS/KG/HR. LOW DRAINED 1800 URINE TO GRAVITY. NO BM THIS SHIFT.
--- NOTE | 2022-11-20 22:00 | NUR ---
ASSUMPTION OF CARE NOTE PT FLAILING EXTREMITIES AT BEGINNING OF SHIFT. UNABLE TO FOLLOW COMMANDS BUT DOES OPEN EYES TO VERBAL STIMULI. VENT ON SPONTANEOUS SETTING 7/5 30% FIO2. LARGE AMOUNT OF GONGORA SECRETIONS SUCTIONED FROM ET TUBE. CURRENTLY IN NSR RATE IN THE 60S. BP STABLE. PROPOFOL AT 25MCG/KG/MIN, HEPARIN AT 21 UNITS/HR. TF RUNNING AT GOAL RATE OF 45ML/HR. LOW DRAINING TO GRAVITY WITH GOOD URINE OUTPUT.
[2022-11-21] VITALS (52 sets, daily range): BP systolic 105–181; BP diastolic 47–95
--- NOTE | 2022-11-21 03:28 | NUR ---
UPDATE PT SPIKED FEVER OF 100.6 AROUND 0100. 650MG OF TYLENOL GIVEN
[2022-11-21 04:26] LABS: BASOPHILS ABSOLUTE AUTO 0.03 K/mm3 (0.00-0.23); BASOPHILS PERCENT AUTO 0 % (0-2); EOSINOPHILS ABSOLUTE AUTO 0.37 K/mm3 (0.00-0.68); EOSINOPHILS PERCENT AUTO 3 % (0-6); Hematocrit 29.5 % (37.0-53.0); Hemoglobin 9.1 g/dL (13.5-17.5); IMMATURE GRAN ABSOLUTE AUTO 0.07 K/mm3 (0.00-0.10); IMMATURE GRAN PERCENT AUTO 1 % (0-1); LYMPHOCYTES ABSOLUTE AUTO 0.98 K/mm3 (0.84-5.20); LYMPHOCYTES PERCENT AUTO 9 % (21-46); MONOCYTES ABSOLUTE AUTO 0.88 K/mm3 (0.16-1.47); MONOCYTES PERCENT AUTO 8 % (4-13); Mean Corpuscular HGB 26.3 pg (26.0-34.0); Mean Corpuscular HGB Conc 30.8 g/dL (31.5-36.5); Mean Corpuscular Volume 85 fL (80-100); Mean Platelet Volume 10.1 fL (9.1-12.4); NEUTROPHILS ABSOLUTE AUTO 9.02 K/mm3 (1.96-9.15); NEUTROPHILS PERCENT AUTO 79 % (41-73); Platelet Count 299 K/mm3 (150-400); RDW Coefficient Variation 16.8 % (11.7-14.2); RDW Standard Deviation 51.3 fL (35.1-46.3); Red Blood Cell Count 3.46 M/mm3 (4.30-5.90); White Blood Cell Count 11.35 K/mm3 (4.00-11.30)
[2022-11-21 04:42] LABS: Bun/Creatinine Ratio 24.6 (12.0-20.0); Calcium, Blood 8.5 mg/dL (8.5-10.1); Creatinine, Blood 0.69 mg/dL (0.60-1.20); Magnesium, Blood 1.7 mg/dL (1.6-2.4); Phosphorus, Blood 3.1 mg/dL (2.5-4.9); Potassium, Blood 3.5 mmol/L (3.5-5.5)
--- NOTE | 2022-11-21 06:28 | NUR ---
SHIFT SUMMARY NO IMPROVEMENT TO NEURO STATUS OVERNIGHT, IS BECOMING LESS RESPONSIVE TO VERBAL STIMULI, STILL RESPONDS TO TOUCH, UNABLE TO VISUALLY TRACK OR FOLLOW COMMANDS. NO PURPOSEFUL MOVEMENT WITH EXTREMITIES, CONTINUES TO SPORATICALLY MOVE LIMBS, AND CONTINUES TO BE IN RESTRAINTS. NO CHANGES TO VENT SETTINGS. LUNGS COARSE WITH LARGE AMOUNTS OF SECRETIONS. PROPOFOL DECREASED TO 20MCG/KG/MIN. IN NSR WITH RATES IN 50S-60S. TF REMAINS AT GOAL. 1 BM OVERNIGHT AND GOOD URINE OUTPUT. POTENTIAL EXTUBATION DURING DAYSHIFT TODAY. PT INTUBATED AND SEDATED. WILL CONTINUE TO ASSESS IGNITION RISK CONDITION CHANGES. NO FAMILY IN THE ROOM TO EDUCATE THIS SHIFT.
--- NOTE | 2022-11-21 13:51 | NUR ---
Pt being extubated and beginning comfort care, as his and daughter have stated the pt has been clear with his wishes, and he would not want to be kept alive by artificial means.
--- NOTE | 2022-11-21 15:31 | NUR ---
Spiritual care visit conducted. Patient's dtr, Aimee, is saying hurtful words to the patient's spouse, Anitra, and causing tension and making it challenging for Anitra to make decisions that line up with the patient's wishes. Anitra decides to have the patient extubated and while this procedure is taking place I talk with Anitra in the hallway and we talk through the pressure, stress and painful family dynamics. I provide gentle vocational guidance counselor and prayer allowing Anitra to find peace and greater resolve in the medical decisions that were made. I then spend over an one hour and a half with Anitra and Aimee as they watch patient have shallow and labored breathing. I conducted a life review, and provided therapeutic listening and more prayer. THey both responded well and showed signs of being at peace with the decision and were able to settle more easily into the anticipatory grief process.
--- NOTE | 2022-11-21 15:34 | NUR ---
COMFORT CARE PATIENT WAS MADE COMFORT CARE AND EXTUBATED AT 1400 PER FAMILY REQUEST. PROPOFOL AND HEPARIN HAVE BEEN DISCONTINUED AND PATIENT WAS MEDICATED FOR COMFORT PER EMAR. SPIRITUAL AND PALLIATIVE CARE AT BEDSIDE TO ASSIST WITH FAMILY COPING. LOW REMAINS IN PLACE FOR PATIENT COMFORT AND FAMILY EDUCATED ON NO SMOKING RULES AND FIRE RISK.
--- NOTE | 2022-11-21 17:48 | NUR ---
PATIENT PASSING: PATIENT ARRIVED TO UNIT AT 1710. PATIENT WAS AUDIBLY GURGLING. SUCTION PROVIDED. SOME SPUTUM WAS THE RESULT. CONTINUED TO GURGLE AUDIBLY. PATIENTS RESPIRATIONS WERE OVER 50 BREATHS PER MINUTE. BROW WAS FURROWED. NO GAG REFLEX PRESENT. MEDICATED PER PRNS FOR PAIN. NO RESULTS NOTED POST ADMINISTRATION OF ROXANOL. PATIENT CONTINUED TO HAVE ELEVATED RESPIRATIONS AND FURROWED BROW. UTILIZED COOL CLOTH, FAN AND REPOSITIONING. CONTINUED TO BE IN RESPIRATORY DISTRESS. MEDICATED WITH PRN ATIVAN. PATIENT'S RESPIRATIONS SLOWED AND PATIENT APPEARED TO HAVE SOME RELIEF FROM RESPIRATORY DISTRESS. SHORTLY AFTER PATIENT PASSED. NOTIFIED DR. SIBLEY AND SUPERVISOR [employer] GERRI RUTHERFORD. FAMILY NOTIFIED BY GERRI RUTHERFORD RN.
== END 2022-11-21 17:43 ==
LOC: ER 22:37 → ICUE 11-08 01:41 → MEDS 11-21 17:08
PROVIDERS: Family Medicine; Internal Medicine; Internal Medicine Cardiovascular Disease; Internal Medicine Critical Care Medicine; Student in an Organized Health Care Education/Training Program; ADMIT Internal Medicine
PROC: 3E033XZ Introduction of Vasopressor into Peripheral Vein, Percutaneous Approach (ICD-10-PCS; 2022-11-08)
PROC: 0T9B70Z Drainage of Bladder with Drainage Device, Via Natural or Artificial Opening (ICD-10-PCS; 2022-11-08)
PROC: 5A12012 Performance of Cardiac Output, Single, Manual (ICD-10-PCS; 2022-11-08)
PROC: 5A2204Z Restoration of Cardiac Rhythm, Single (ICD-10-PCS; 2022-11-08)
PROC: 0BH17EZ Insertion of Endotracheal Airway into Trachea, Via Natural or Artificial Opening (ICD-10-PCS; 2022-11-09)
PROC: 0DH67UZ Insertion of Feeding Device into Stomach, Via Natural or Artificial Opening (ICD-10-PCS; 2022-11-09)
PROC: 3E0G76Z Introduction of Nutritional Substance into Upper GI, Via Natural or Artificial Opening (ICD-10-PCS; 2022-11-09)
PROC: 5A1945Z Respiratory Ventilation, 24-96 Consecutive Hours (ICD-10-PCS; principal; 2022-11-11)
DX: I49.01 Ventricular fibrillation (principal); I21.4 Non-ST elevation (NSTEMI) myocardial infarction; J15.6 Pneumonia due to other Gram-negative bacteria; J69.0 Pneumonitis due to inhalation of food and vomit; J96.21 Acute and chronic respiratory failure with hypoxia; J96.22 Acute and chronic respiratory failure with hypercapnia; J44.0 Chronic obstructive pulmonary disease with (acute) lower respiratory infection; I50.32 Chronic diastolic (congestive) heart failure; E87.29 Other acidosis; E87.20 Acidosis, unspecified; G93.1 Anoxic brain damage, not elsewhere classified; I46.2 Cardiac arrest due to underlying cardiac condition; I48.92 Unspecified atrial flutter; Z51.5 Encounter for palliative care; B96.89 Other specified bacterial agents as the cause of diseases classified elsewhere; I35.0 Nonrheumatic aortic (valve) stenosis; I27.20 Pulmonary hypertension, unspecified; R57.0 Cardiogenic shock; E87.6 Hypokalemia; I11.0 Hypertensive heart disease with heart failure; I25.10 Atherosclerotic heart disease of native coronary artery without angina pectoris; E78.5 Hyperlipidemia, unspecified; Z20.822 Contact with and (suspected) exposure to COVID-19; R77.8 Other specified abnormalities of plasma proteins; M54.9 Dorsalgia, unspecified; K21.9 Gastro-esophageal reflux disease without esophagitis; G47.33 Obstructive sleep apnea (adult) (pediatric); M54.2 Cervicalgia; G89.29 Other chronic pain; Z95.2 Presence of prosthetic heart valve; Z87.891 Personal history of nicotine dependence; Z79.01 Long term (current) use of anticoagulants; Z79.2 Long term (current) use of antibiotics; Z79.811 Long term (current) use of aromatase inhibitors; Z79.899 Other long term (current) drug therapy; Z88.8 Allergy status to other drugs, medicaments and biological substances; Z88.0 Allergy status to penicillin; Z95.1 Presence of aortocoronary bypass graft
CPT/HCPCS: 31720; 36415; 36600; 51702; 70450; 71045; 71275; 72125; 74018; 80047; 80048; 80053; 80069; 81001; 82330; 82803; 82947; 83605; 83735; 83880; 84100; 84443; 84484; 85014; 85025; 85027; 85520; 85610; 85730; 87040; 87070; 87077; 87186; 87205; 93005; 93010; 94002; 94003; 94640; 94664; 94760; 94762; 96365-59; 96366-59; 96368; 96375-59; 99285-25; A9270; C1751; C8929; C9113; J0282; J0360; J0696; J1170; J1630; J1644; J1940; J2060; J2185; J2270; J2704; J2930; J3010; J3370; J3480; J7030; J7050; J7060; Q9957; Q9967